=== PATIENT | male | born 1965 | race Caucasian/White ===

== ENCOUNTER 2019-11-30 20:42 | Emergency (ER) | payer SELFPAY ==
[2019-11-30 20:44] VITALS: BP 142/105; PULSE 97; RESP 20; TEMP 36.9; O2SAT 98; BMI 26.9
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
[2019-11-30] MEDS: 0.9% Normal Saline 1,000 ML 999 ML IV (21:32)
[2019-11-30] MEDS: Ondansetron 4 MG/2 ML Vial IV (21:34)
[2019-11-30] MEDS: Morphine 4 MG/ML Syringe IV (21:34)
[2019-11-30 21:41] LABS: Absolute Lymphocyte Count 1.87 X10^3/uL (0.83-4.51); Absolute Neutrophil Count 9.3 X10^3/uL (2.0-7.7); Basophil# 0.08 X10^3/uL; Basophil% 0.7 % (0-1); Eosinophil# 0.06 X10^3/uL; Eosinophils% 0.5 % (0-5); Hematocrit 47.5 % (40-54); Lymphocyte # 1.87 X10^3/ul (4.0); Lymphocyte % 15.6 % (19-41); Mean Corp Hgb Conc 33.7 g/dL (32-36); Mean Corpuscular Hgb 30.1 pg (27.0-32.0); Mean Corpuscular Volume 89.5 fL (80-94); Mean Platelet Vol. 9.5 fl (6.2-12.0); Monocyte% 5.8 % (0-10); NRBC Flagged by Analyzer 0 % (0-5); Neutrophil # 9.25 X10^3/uL (2.7-7.7); Neutrophil % 77.1 % (47-70); Platelet Count 235 K/mm3 (150-450); RBC Distribution Width CV 12.6 % (11.6-14.6); RBC Distribution Width SD 41.2 fl (35.1-43.9); Red Blood Count 5.31 M/mm3 (4.6-6.2)
[2019-11-30 21:50] LABS: Anion Gap 5 (5-15); BUN 11 mg/dL (7-18); BUN/Creat Ratio 12.2 RATIO (10-20); Chloride 104 mmol/L (98-107); EST Glomerular Filtration Rate 94 mL/min (>60); Est Glom Filt Rate - Afr Amer 113 mL/min (>60); Estimated Creatinine Clearance 141.24 ml/min; Glucose 122 mg/dL (74-106); Sodium Level 136 mmol/L (136-145)
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
[2019-11-30 22:42] VITALS: BP 115/88; PULSE 76; RESP 15; O2SAT 96
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
[2019-12-01 00:03] VITALS: BP 122/68; PULSE 85; RESP 18; O2SAT 97
== END 2019-12-01 00:04 | disposition home or self-care (01) ==
LOC: ED 21:26
PROVIDERS: Emergency Provider Emergency Medicine; PCP Family Medicine
DX: S16.1XXA Strain of muscle, fascia and tendon at neck level, initial encounter (principal); R07.89 Other chest pain; M25.512 Pain in left shoulder; M25.561 Pain in right knee; R10.30 Lower abdominal pain, unspecified; Z72.0 Tobacco use; V43.52XA Car driver injured in collision with other type car in traffic accident, initial encounter; Y93.I9 Activity, other involving external motion; Y92.410 Unspecified street and highway as the place of occurrence of the external cause; Y99.8 Other external cause status
CPT/HCPCS: 71260; 72125; 73030; 73564; 74177; 80048; 85025; 96361; 96374; 96375; 99284; Q9967; A4216; J2405

== ENCOUNTER 2019-12-05 11:23 | Emergency (ER) | payer MEDICAID, SELFPAY ==
[2019-12-05 11:24] VITALS: BP 119/82; PULSE 83; RESP 16; TEMP 36.6; O2SAT 97; BMI 26.6
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
[2019-12-05 13:12] VITALS: PULSE 88; RESP 14
== END 2019-12-05 13:17 | disposition home or self-care (01) ==
PROVIDERS: Emergency Provider Emergency Medicine; PCP Family Medicine
DX: S16.1XXD Strain of muscle, fascia and tendon at neck level, subsequent encounter (principal); F17.200 Nicotine dependence, unspecified, uncomplicated; V53.5XXD Driver of pick-up truck or van injured in collision with car, pick-up truck or van in traffic accident, subsequent encounter
CPT/HCPCS: 70450; 99282

== ENCOUNTER → 2020-04-20 | Outpatient (CLI) | payer MEDICAID, SELFPAY ==
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
== END | disposition home or self-care (01) ==
LOC: RAD 07:58
PROVIDERS: PCP Family Medicine; Referring Provider Chiropractor; Visit Provider Chiropractor
DX: M54.16 Radiculopathy, lumbar region (principal)
CPT/HCPCS: 72110

== ENCOUNTER 2020-05-04 18:43 | Emergency (ER) | payer MEDICAID, SELFPAY ==
[2020-05-04 18:45] VITALS: BP 123/102; PULSE 92; RESP 17; TEMP 36.3; O2SAT 97; BMI 26.4
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
[2020-05-04] MEDS: HYDROcodone Bitartrate/Apap 5/325 Tablet PO (20:11)
[2020-05-04] MEDS: Ketorolac 30 MG/ML Syringe IM (20:12)
[2020-05-04] MEDS: Gabapentin 600 MG Tablet 300 MG PO (20:20)
== END 2020-05-04 20:28 | disposition home or self-care (01) ==
LOC: ED 20:03
PROVIDERS: Emergency Provider Emergency Medicine
DX: M79.2 Neuralgia and neuritis, unspecified (principal); F17.200 Nicotine dependence, unspecified, uncomplicated
CPT/HCPCS: 96372; 99284

== ENCOUNTER 2020-07-14 09:03 | Outpatient (RCR) | payer MEDICAID, SELFPAY ==
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
--- NOTE | 2020-09-01 13:22 | HP.OT.NRP ---
HANNAH PARRA was seen in my office for initial evaluation on 07/14/20. The following Plan of Care was established for this patient: Initial Frequency: 3x /Week Initial Duration: 3 Months Anticipated Interventions: A/AAROM/PROM, Strengthening, Edema Control, Scar Care, Triggerpoint Release, Sensory Retraining, Modalities, Orthoses, Fine Motor Coord/Александр, ADL Training This patient was last seen in our office 07/14/20. Pertinent comments regarding their Occupational therapy will appear below: pt seen for OT eval only- pt did not return for further apts. Due to time lapse in services pt is d/c from OT at this time. At this point I will be discontinuing this patient from occupational therapy. I would be happy to see this patient again in the future if found appropriate by the physician. Thank you! Makenna Mcgee, OTR/L, CHT
== END 2020-07-14 19:00 | disposition home or self-care (01) ==
LOC: OT 09:03
PROVIDERS: Referring Provider Orthopaedic Surgery; Visit Provider Orthopaedic Surgery
DX: M24.541 Contracture, right hand (principal)
CPT/HCPCS: 97167

== ENCOUNTER 2020-09-04 13:12 | Emergency (ER) | payer MEDICAID, SELFPAY ==
[2020-09-04 13:13] VITALS: BP 121/87; PULSE 85; RESP 18; TEMP 35.8; O2SAT 98; BMI 29.4
--- NOTE | 2020-09-04 13:38 | RAD_ITS ---
STUDY: X-RAY - RIGHT SHOULDER REASON FOR EXAM: Male, 54 years old. FALL X2 DAYS AGO- PT STATES FELT LIKE IT CAME OUT AND THEN POPPED BACK INTO PLACE- CONTINUED PAIN AND LIMITED ROM -- HX OF SAME PER PT TECHNIQUE: 4 view(s) of the shoulder. COMPARISON: None. FINDINGS: Normal glenohumeral articulation. There is hypertrophic osteoarthrosis of the acromioclavicular joint with inferior osseous spur formation. Normal acromion. Normal humeral head and visualized proximal humerus. The soft tissue structures are unremarkable. Normal visualized pulmonary apex. 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 Electronically Signed: Nathaniel Feng, at 14:03 EST , Service support ,
--- NOTE | 2020-09-04 14:19 | ED.DEP ---
ED Disposition - Plan for ED Patient: Instructions: ED Shoulder Sprain Prescriptions: Oxycodone HCl/Acetaminophen [Percocet 5/325] 1 tab PO Q6H PRN PRN 3 Days #12 tab PRN Reason: Pain Prescription Printed Referrals: Prieto Deluca MD [STAFF PHYSICIAN] -
--- NOTE | 2020-09-04 14:26 | ED.DCSUM_ITS ---
- ER Visit Summary Date of Service: 09/04/20 Chief Complaint: Right shoulder pain History of Present Illness: The patient is a 54 M presenting with right shoulder pain. Patient states he fell 2 days ago. He states he slipped and fell landing on his right side. He did not hit his head or lose consciousness. He felt like his shoulder popped out of place and popped back into place at the time. He states he has done this in the past. Denies other injuries. Physical Examination: Vitals are stable. Patient is afebrile. Alert no acute distress. HEENT exam is unremarkable. Neck is nontender Lungs are clear and equal bilaterally. Heart is regular rate and rhythm. Abdomen is soft nontender nondistended. Extremities diffuse tenderness right shoulder with painful range of motion. Neurovascularly intact distally. No erythema or warmth. Skin is warm and dry. No focal neurologic deficit. Remainder of exam is unremarkable. 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 Patient given morphine, Zofran IM. He was given a sling. Advised follow-up with orthopedics. Advised return to ED if worsening complaints. Disposition: Discharge home Impression: Right shoulder sprain This note was generated with [employer] dictation software. It may contain incorrect words, spelling, and punctuation that were not noted in review of the chart prior to signing ED Disposition - Plan for ED Patient: Instructions: ED Shoulder Sprain Prescriptions: Oxycodone HCl/Acetaminophen [Percocet 5/325] 1 tab PO Q6H PRN PRN 3 Days #12 tab PRN Reason: Pain Prescription Printed Referrals: Prieto Deluca MD [STAFF PHYSICIAN] -
[2020-09-04] MEDS: oxyCODONE 5 MG Tablet PO (14:40)
[2020-09-04 14:41] VITALS: RESP 18
== END 2020-09-04 14:46 | disposition home or self-care (01) ==
LOC: ED 14:46
PROVIDERS: Emergency Provider Emergency Medicine
DX: S43.401A Unspecified sprain of right shoulder joint, initial encounter (principal); Z72.0 Tobacco use; W01.0XXA Fall on same level from slipping, tripping and stumbling without subsequent striking against object, initial encounter; Y93.89 Activity, other specified; Y92.89 Other specified places as the place of occurrence of the external cause; Y99.8 Other external cause status
CPT/HCPCS: 73030; 99283; J2405

== ENCOUNTER 2023-12-25 11:32 | Emergency (ER) | payer MEDICAID, SELFPAY ==
[2023-12-25 11:32] VITALS: BP 131/89; PULSE 97; RESP 16; TEMP 36.6; O2SAT 100; BMI 29.2
--- NOTE | 2023-12-25 12:07 | ED.VIS.GI ---
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 He did think that he may have lifted something incorrectly and had a twinge of pain in his left low back, but it worsened today. He states it took him about an hour to get out of bed. When he had a bowel movement, he felt a tearing sensation in his left flank. It radiates from his low back towards the front. He had a normal bowel movement today. He denies any fevers or chills, no saddle anesthesia, no loss of bowel or bladder. He does state that when he pressed on his low back it does not hurt and it feels like there is pain that is sharp and stabbing more on the inside. No exacerbating or alleviating factors. He does relate history that remotely he had a kidney stone. PFSH PFS Medical History no medical history Home Medications cyclobenzaprine 10 mg tablet 10 mg PO TID PRN Muscle Spasm #20 TABLETS 12/25/23 [Rx Last Taken Unknown] naproxen 500 mg tablet (Naprosyn) 500 mg PO BID PRN pain #20 tabs 12/25/23 [Rx Last Taken Unknown] Allergy/AdvReac Type Severity Reaction Status Date / Time No Known Allergies Allergy Verified 12/25/23 11:33 Social History Smoking Status: Current every day smoker tobacco type: cigarettes ROS ROS ED ROS Narrative Constitutional: No fever, no chills. HEENT: No sore throat. No neck pain. No loss of vision. No rhinorrhea. Cardiovascular: No chest pain. No palpitations. No pedal edema. Respiratory: No cough, no shortness of breath. Abdominal: Left lower quadrant abdominal pain. No nausea. No vomiting. Genitourinary: No dysuria. No hematuria. Positive left low back to left flank pain. Musculoskeletal: No myalgias. No arthralgias. Neurologic: No headaches. No dizziness. No lightheadedness. Skin: No rash. No change in color. Psychiatric: No depression. No anxiety. EXAM Physical Exam Narrative Exam Narrative: Afebrile. Vital signs noted. HEENT: Normocephalic. Atraumatic. PERRL, EOMI. Neck soft and supple. No point tenderness or step off. Cardiovascular: Regular rate and rhythm. No murmurs, rubs, or gallops appreciated. Respiratory: No tachypnea. Lungs clear to auscultation bilaterally. Gastrointestinal: Abdomen soft, nontender, with normoactive bowel sounds. No rebound or guarding. Neurological: Awake. Alert. Nonfocal, nonlateralizing. Skin: No rash. Normal color. No pallor. Musculoskeletal: No pedal edema. Full range of motion extremities. Const Vital Signs: 12/25/23 11:32 12/25/23 13:32 Temperature 98 F Temperature Source Temporal Pulse Rate 97 89 Respiratory Rate 16 16 Blood Pressure 131/89 H 117/78 Blood Pressure Mean 103 91 Pulse Ox 100 97 Oxygen Delivery Method Room Air Room Air MDM MDM MDM Narrative Medical decision making narrative: In the differential diagnosis is ureterolithiasis versus diverticulitis versus bowel obstruction. History and physical does not certainly support a bowel obstruction. He may be having more of a lumbar radiculopathy and musculoskeletal low back pain as well, he was administered Toradol and a bolus of IV fluids for analgesia. Comprehensive workup was pursued. I do feel that CT flank is indicated to look for ureteral stone and it could also diagnose diverticulitis as well. I reviewed his laboratory work and he has normal white count of 7.1, hemoglobin normal at 16.2, hematocrit 48.0, platelet count normal at 248. Electrolyte panel shows sodium slightly low at 135 which I think is nonspecific, normal potassium of 4.1, BUN normal at 9, creatinine 0.94. AST is normal at 17 with ALT 25 and alk phos normal at 91. Urinalysis was obtained and reviewed and there is no evidence of infection or blood. I do not feel that antibiotics are indicated have lower suspicion for ureterolithiasis at this time. I reviewed the radiology report of the CT of the abdomen and pelvis without contrast which does not show any evidence of ureteral stone, no acute process. The appendix is visualized and is noninflamed. Additionally, his flank pain is on the left side. He does have an aortic aneurysm and dilation of the right proximal iliac. Smoking cessation was discussed with the patient. At this point in time, I am unsure as to the cause of his left flank pain but think it may be more musculoskeletal back pain. After he had received Toradol, upon repeat examination at approximately 1430, he feels improved. I do not feel he requires observation or admission at this time. He is able to transfer from the bed. He was written prescriptions for Flexeril and naproxen and was referred to a primary care provider. Return instructions to the emergency department were reviewed. Disposition is discharged home in stable condition. History & Record Review Discussion w/independent historian: Patient Additional record(s) reviewed:: Prior ED visit Lab Data Attestation: I reviewed the patient's lab results. Labs: Laboratory Results - last 24 hr 12/25/23 12/25/23 12:05 12:30 WBC 7.1 RBC 5.40 Hgb 16.2 Hct 48.0 MCV 88.9 MCH 30.0 MCHC 33.8 RDW Std Deviation 42.1 RDW Coeff of Cherri 12.9 Plt Count 248 MPV 9.7 Immature Gran % (Auto) 0.100 Neut % (Auto) 65.7 Lymph % (Auto) 23.7 Russell % (Auto) 7.4 Eos % (Auto) 1.8 Baso % (Auto) 1.3 H Absolute Neuts (auto) 4.7 Absolute Lymphs (auto) 1.69 Nucleated RBC % 0 Sodium 135 L Potassium 4.1 Chloride 104 Carbon Dioxide 27.0 Anion Gap 4 L BUN 9 Creatinine 0.94 Estim Creat Clear Calc 140.98 Est GFR (MDRD) Af Amer 107 Est GFR (MDRD) Non-Af 88 BUN/Creatinine Ratio 9.6 L Glucose 145 H Calcium 8.9 Total Bilirubin 0.40 AST 17 ALT 25 Alkaline Phosphatase 91 Total Protein 7.2 Albumin 3.8 Globulin 3.4 Albumin/Globulin Ratio 1.1 Urine Color Yellow Urine Clarity Clear Urine pH 7.0 Ur Specific [place] 1.010 Urine Protein 30 H Urine Glucose (UA) Normal Urine Ketones 5 H Urine Occult Blood 10 H Urine Nitrite Negative Urine Bilirubin Negative Urine Urobilinogen 4 H Ur Leukocyte Esterase 100 H Urine RBC 0 SEEN Urine WBC 0-5 SEEN Ur Squamous Epith Cells 0-5 SEEN Ur Renal Epithelial Cell 0-5 SEEN Urine Bacteria 0 SEEN Urine Mucus 0 SEEN Radiography Diagnostic Testing: Clinical Impression(s) from Imaging Studies Abdomen/Pelvis CT 12/25/23 13:02 IMPRESSION: Atrophic changes of the abdominal aorta with minimal aneurysmal dilatation of the distal abdominal aorta with a transverse dimension of 2.9 cm. Dilatation of the proximal portion of the right common iliac artery. Mild prostatic enlargement. Interval increase in size of the previously seen cyst in the dome of the right lobe of the liver. Correlation with ultrasound is recommended. Electronically Signed: Nathaniel Feng MD at 13:41 EDT , Discharge Plan Triage Chief Complaint: Abd Pain ED Provider: Myles Rivera Dx/Rx/DC Orders Clinical Impression: Low back pain, Left flank pain Instructions: ED Back Pain (Acute or Chronic), ED Flank Pain, Uncertain Cause Prescriptions: New cyclobenzaprine 10 mg tablet 10 mg PO TID PRN (Reason: Muscle Spasm) Qty: 20 0RF naproxen [Naprosyn] 500 mg tablet 500 mg PO BID PRN (Reason: pain) Qty: 20 0RF Primary Care Provider: Care Physician,No Primary Referrals: Tommie Burr MD [Med Staff - Active Staff] - 1 Week if not improving Care Physician,No Primary [Primary Care Provider] - Disposition Disposition: Home, Self Care
[2023-12-25 12:25] LABS: Absolute Lymphocyte Count 1.69 X10^3/uL (0.83-4.51); Absolute Neutrophil Count 4.7 X10^3/uL (2.0-7.7); Basophil# 0.09 X10^3/uL; Basophil% 1.3 % (0-1); Eosinophil# 0.13 X10^3/uL; Eosinophils% 1.8 % (0-5); Hemoglobin 16.2 g/dL (13.0-16.5); Lymphocyte # 1.69 X10^3/ul (0.83-4.51); Lymphocyte % 23.7 % (19-41); Mean Corp Hgb Conc 33.8 g/dL (32-36); Mean Corpuscular Volume 88.9 fL (80-94); Mean Platelet Vol. 9.7 fl (6.2-12.0); Monocyte# 0.53 X10^3/uL; Monocyte% 7.4 % (0-10); NRBC Flagged by Analyzer 0 % (0-5); Neutrophil # 4.68 X10^3/uL (2.7-7.7); Neutrophil % 65.7 % (47-70); Platelet Count 248 K/mm3 (150-450); RBC Distribution Width CV 12.9 % (11.6-14.6); RBC Distribution Width SD 42.1 fl (35.1-43.9); White Blood Count 7.1 K/mm3 (4.4-11.0)
[2023-12-25] MEDS: 0.9% Normal Saline (1000mL) 1,000 ML 1000 ML IV (12:35)
[2023-12-25] MEDS: Ketorolac 30 MG/ML Syringe IV (12:36)
[2023-12-25 12:38] LABS: ALB/GLOB Ratio 1.1 RATIO (0.9-2.4); AST(SGOT) 17 U/L (15-37); Alanine Aminotransfer ALT/SGPT 25 U/L (16-61); Albumin, Serum 3.8 g/dL (3.2-5.0); Alkaline Phosphatase 91 U/L (45-117); Anion Gap 4 (5-15); BUN 9 mg/dL (7-18); BUN/Creat Ratio 9.6 RATIO (10-20); Calcium,Total 8.9 mg/dL (8.5-10.1); Chloride 104 mmol/L (98-107); Creatinine, Serum 0.94 mg/dL (0.70-1.30); EST Glomerular Filtration Rate 88 mL/min (>60); Est Glom Filt Rate - Afr Amer 107 mL/min (>60); Estimated Creatinine Clearance 140.98 ml/min; Globulin 3.4 g/dL (2.2-4.2); Glucose 145 mg/dL (74-106); Potassium 4.1 mmol/L (3.5-5.1); Protein, Total 7.2 g/dL (6.4-8.2); Sodium Level 135 mmol/L (136-145)
[2023-12-25 12:44] LABS: Bacteria 0 SEEN /hpf (None Seen); Mucous, Urine 0 SEEN /hpf (<or=2+); Red Blood Cells-Urine 0 SEEN /hpf (0-5)
[2023-12-25 12:47] LABS: Color, Urine Yellow (Yellow); Glucose, Dipstick Normal (Normal); Ketone-Dipstick 5 mg/dl (Negative); Leukocyte Esterase-Dipstick 100 /ul (Negative); Nitrite-Dipstick Negative (Negative); Occult Blood-Urine 10 /ul (Negative); Protein-Dipstick 30 mg/dl (Negative); Urine Bilirubin Dipstick Negative (Negative); Urine Clarity Clear (Clear); Urine Urobilinogen 4 mg/dl (Normal)
[2023-12-25 12:57] LABS: Renal Epithelial Cells 0-5 SEEN /hpf (0-5); Squamous Epithelial Cells - UA 0-5 SEEN /hpf (0-5); White Blood Cells 0-5 SEEN /hpf (0-5)
--- NOTE | 2023-12-25 13:02 | CT_ITS ---
STUDY: CT ABDOMEN AND PELVIS WITHOUT CONTRAST REASON FOR EXAM: Male, 58 years old. Left-sided abdominal pain. RADIATION DOSAGE (If Supplied By Facility): CTDIvol = ( 17.82 ) mGy, DLP = ( 979.22 ) mGycm TECHNIQUE: Transaxial images were obtained from the dome of the diaphragm to the symphysis pubis without oral contrast, and without intravenous contrast. Sagittal and coronal images were reconstructed. Individualized dose optimization techniques were used for this CT. COMPARISON: Comparison is made with prior study dated November 30, 2019. FINDINGS: The visualized lung bases are unremarkable. The visualized portions of the heart are within normal limits. The previously seen cyst in the dome of the right lobe of liver as increased in size. It presently measures 3 cm x 2.8 cm. Minimal calcific rim is seen along its posterior aspect. Stable small cyst seen in the left lobe of the liver. Normal gallbladder and extrahepatic biliary system. Normal spleen. Normal pancreas. Normal bilateral adrenal glands. Normal right kidney. Normal left kidney. Normal visualized stomach. Normal small intestine. Normal colon. The appendix is visualized and appears normal. There is diffuse atherosclerotic calcification of the abdominal aorta. Mild aneurysmal dilatation of the distal abdominal aorta with a transverse dimension of 2.9 cm. Dilatation of the proximal portion of the right common iliac artery measuring 2.5 cm in transverse dimension. Normal inferior vena cava. Normal retroperitoneum. Normal urinary bladder. The prostate measures 4.9 cm x 4.3 cm. There is a small umbilical hernia containing fat. There are degenerative changes of the visualized lumbar spine. CT/Abdomen/Pelvis without Cont IMPRESSION: Atrophic changes of the abdominal aorta with minimal aneurysmal dilatation of the distal abdominal aorta with a transverse dimension of 2.9 cm. Dilatation of the proximal portion of the right common iliac artery. Mild prostatic enlargement. Interval increase in size of the previously seen cyst in the dome of the right lobe of the liver. Correlation with ultrasound is recommended. Electronically Signed: Nathaniel Feng MD at 13:41 EDT ,
[2023-12-25 13:32] VITALS: BP 117/78; PULSE 89; RESP 16; O2SAT 97
[2023-12-25 14:44] VITALS: BP 121/78; PULSE 84; RESP 16; TEMP 36.3; O2SAT 98
== END 2023-12-25 14:46 | disposition home or self-care (01) ==
PROVIDERS: Emergency Provider Emergency Medicine; Visit Provider Emergency Medicine
DX: M54.50 Low back pain, unspecified (principal); R10.9 Unspecified abdominal pain; I71.40 Abdominal aortic aneurysm, without rupture, unspecified; F17.210 Nicotine dependence, cigarettes, uncomplicated
CPT/HCPCS: 74176; 80053; 81001; 85025; 96361; 96374; 99283; J7030; A4216

== ENCOUNTER 2024-02-06 09:38 | Emergency (ER) | payer MEDICAID, SELFPAY ==
[2024-02-06 09:38] VITALS: BP 170/94; PULSE 96; RESP 18; TEMP 36.6; O2SAT 100
--- NOTE | 2024-02-06 10:13 | EX.ED.VIS.EY ---
HPI History of Present Illness Chief Complaint: Eye Problem Detail of Chief Complaint: Left eye swelling and discomfort. Informant: patient Onset/Context/Timing Location: Left Eye Onset: Today Context: Gradual Onset Timing: Continuous Current Severity: Mild Maximum Severity: Mild Associated Symptoms Associated Symptoms - Eyes: Burning and Photophobia History of injury: No Visual correction: Glasses (Reading glasses. No contacts.) Narrative Narrative: 58-year-old male uses reading glasses but does not wear contacts never had eye surgery. 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 Said he wears a large shield so he does not think there is any way got a foreign body in his left eye. Today he awoke with left eye pain and swelling with his eye closed. Does not believe there is any chemicals in the eye. Said this is never happened before. Denies any direct trauma. Prior similar symptoms: No Recent Illness/Hospitalization: No PFSH PFSH Medical History no medical history Home Medications cephalexin 500 mg capsule 500 mg PO Q6H 10 days #40 caps 02/06/24 [Rx Last Taken Unknown] Allergy/AdvReac Type Severity Reaction Status Date / Time No Known Allergies Allergy Verified 02/06/24 09:38 Social History Smoking Status: Current every day smoker tobacco type: cigarettes ROS ROS ED ROS Narrative Denies recent illness Review of Systems ROS Unobtainable: Denies due to encephalopathy Constitutional Constitutional ED: Denies chills or fever(s) Eyes Eyes: Denies blurry vision ENT ENT ED: Denies ear pain or rhinorrhea Cardiovascular Cardiovascular: Denies chest pain Respiratory/Chest Respiratory/Chest: Denies cough or dyspnea Gastrointestinal Gastrointestinal: Denies abdominal pain, diarrhea, nausea or vomiting Genitourinary Genitourinary ED: Denies dysuria or hematuria Musculoskeletal Musculoskeletal: Denies arthralgias or back pain Integumentary Denies abscess or Abrasions Neurologic Neurologic: Denies headache(s) Psychiatric Psychiatric: Denies anxiety Endocrine Endocrinology: Denies polydipsia Hematologic/Lymphatic Hematologic/Lymphatic: Denies easy bleeding, easy bruising or lymphadenopathy Allergic/Immunologic Allergic/Immunologic ED: Denies mouth swelling, tongue swelling or urticaria EXAM Physical Exam Narrative Exam Narrative: 58-year-old male vital signs stable afebrile. HEENT exam pupils round react to light his motions are intact. His left eye is closed but unable to open it. There is no discharge. I will do a more formal eye exam once I get his eye locally anesthetized with tetracaine. No facial droop. Lungs clear to auscultation bilaterally. Heart regular rhythm. No murmur. Abdomen soft nontender. Moving all 4 extremities. He has weakness which is chronic and Laki use of the right hand from a prior infection and surgery. Neurologically is awake alert. Answering questions following commands. Repeat exam I placed tetracaine in his left eye and headache slit-lamp exam with fluorescein. I saw no foreign body. No corneal abrasion. Upper and lower lids were everted were okay. On his right upper medial eyebrow appears to be an early skin subcu abscess. It is not fluctuant it is hard. I did not think I would get anything out of I drained it and patient did not want me to attempt to drain it if we integrating anything out of it. He will be started on Keflex 4 times a day. Return if it comes to ahead or gets larger to be drained. Warm compresses. Follow-up with the eye doctor if his eyes not improving. He did have visual acuity done. It was 2070 in the affected left eye 20/25 in the right eye. And he said he could not do both eyes. Const Vital Signs: 02/06/24 09:38 Temperature 98 F Temperature Source Temporal Pulse Rate 96 Respiratory Rate 18 Blood Pressure 170/94 H Blood Pressure Mean 119 Pulse Ox 100 Oxygen Delivery Method Room Air Positive well nourished and well developed; Negative for obese, cachectic, contractures or unkempt General Appearance ED: well developed and NAD; Negative for unkempt, cachectic or contractures Nutritional Appearance: Negative for cachectic or obese HEENT Denies other atraumatic; Negative for trauma, tenderness or other Eyes Eyes Narrative: Pupils are reactive light. Left eye closed. They are open. He is photophobic. There is no orbital or periorbital cellulitis. No preauricular lymphadenopathy. No proptosis. Neck no lymphadenopathy, supple and no JVD General: Negative for tenderness Resp normal respiratory effort, no retractions, no use of accessory muscles and clear to auscultation bilaterally Cardio regular rate, regular rhythm, S1 normal heart sound, S2 normal heart sound and no murmurs GI non-tender, non-distended and no masses Inspection: Negative for other Auscultation: normoactive bowel sounds Palpation: soft Back/Spine no CVA tenderness General Back: Negative for CVA tenderness Extremity Negative for normal to inspection Extremity Narrative: Chronic weakness right hand due to prior infection surgery. Neuro oriented x3 Sensorium / Orientation: alert, oriented to person, oriented to place and oriented to time Motor Exam: strength 5/5 throughout Psych Appearance: Negative for unkempt Attitude: No agitated Mood & Affect: Negative for depressed, anxious or tearful Skin no wounds Lesions: no lesions Rashes: no rashes Trauma: Negative for abrasion Image ED - Eye Diagram: 1. Abscess medial aspect of the left upper eyebrow. The left eye exam itself there is no corneal abrasion or foreign body. No signs of infection. MDM MDM MDM Narrative Medical decision making narrative: Patient has discomfort in his left eye with swelling. Infection versus foreign body. Slit-lamp examination be performed after he received tetracaine to his left eye and fluorescein. Visual acuity be obtained. Along patient also has a abscess on his left medial forehead just above his eyebrow. It is firm nothing to drain at this time. There is no signs of shingles. Patient be discharged home. Keflex 4 times a day. First dose given here. Nothing to I&D at this time. Outpatient follow-up with ophthalmology if not improving. Return if the abscess gets bigger to be drained. History & Record Review Discussion w/independent historian: Patient Discharge Plan Triage Chief Complaint: Eye Problem ED Provider: Christopher Conti Dx/Rx/DC Orders Clinical Impression: Abscess Instructions: ED Abscess Antibiotic Treatment Only Prescriptions: New cephalexin 500 mg capsule 500 mg PO Q6H 10 Days Qty: 40 0RF Primary Care Provider: Care Physician,No Primary Referrals: Deedee Ray MD [Med Staff - Active Staff] - 3-5 Days if not improving Care Physician,No Primary [Primary Care Provider] - Activity Restrictions/Additional Instructions: Your eye exam does not show foreign body, infection or scratch to your eye. There appears to be an abscess on your left forehead that we will treat with antibiotics.. There is nothing to drain at this time. If the abscess gets larger on her left forehead then we will need to drain it. Warm compresses. The antibiotic Keflex 1 pill 4 times a day till gone. The should progressively improve if it is not follow-up with the eye doctor. Disposition Disposition: Home, Self Care
--- NOTE | 2024-02-06 11:18 | NURSING ---
Pt states its too painful to look through both eyes
[2024-02-06] MEDS: Cephalexin 250 MG Capsule 500 MG PO (12:48)
[2024-02-06] MEDS: Fluorescein 1 MG STRIP 1 STRIP LEFT EYE (12:49)
[2024-02-06] MEDS: Tetracaine 0.5% Ophthalmic Bottle 5 DRP LEFT EYE (12:49)
[2024-02-06 12:54] VITALS: BP 134/78; PULSE 78; RESP 16; TEMP 36.6; O2SAT 99
== END 2024-02-06 12:57 | disposition home or self-care (01) ==
PROVIDERS: Emergency Provider Emergency Medicine; Visit Provider Emergency Medicine
DX: L02.01 Cutaneous abscess of face (principal); F17.210 Nicotine dependence, cigarettes, uncomplicated; H53.149 Visual discomfort, unspecified
CPT/HCPCS: 99282

== ENCOUNTER 2024-06-01 08:34 | Emergency (ER) | payer MEDICAID, SELFPAY ==
[2024-06-01 08:35] VITALS: BP 138/97; PULSE 86; RESP 16; TEMP 36.4; O2SAT 98; BMI 27.3
--- NOTE | 2024-06-01 09:10 | EDS_ITS ---
HPI History of Present Illness Chief Complaint: Eye Problem Informant: patient Onset/Context/Timing Location: Left Eye Onset: Yesterday Context: Sudden Onset Timing: Continuous Worsened by: Opening his eye Relieved by: Nothing Associated Symptoms Associated Symptoms - Eyes: Burning, Crusting, Drainage, Eyelid swelling, Foreign body sensation, Pain and Redness History of injury: Yes and Foreign body Visual correction: Glasses (Reading glasses) Narrative Narrative: Patient presents with foreign body sensation to his left eye that occurred yesterday. Patient states he was working on a car and was wearing a full face shield yesterday. Patient states that when he was done, he started to get sweaty and he took his face shield off. Patient states that his friend was blowing some of the dust and dirt from the car. Patient states that something got into his eye at that time. Patient admits to some burning and redness this morning. Patient admits to some swelling and increased tearing from his left eye. Patient states she has difficulty opening his eye due to the pain. PFSH PFSH no medical history Home Medications ?Medication ?Instructions ?Recorded ?Last Taken ?Type cephalexin 500 mg capsule 500 mg PO Q6 #40 CAPSULES 02/06/24 Unknown Rx cephalexin 500 mg capsule 500 mg PO Q6H 10 days #40 caps 02/06/24 Unknown Rx Allergy/AdvReac Type Severity Reaction Status Date / Time No Known Allergies Allergy Verified 06/01/24 08:35 Surgical History (Updated 06/01/24 @ 09:[address] Rashad Merrill DO) Hx of hand surgery Social History Smoking Status: Current every day smoker tobacco type: cigarettes ROS ROS ED Constitutional Constitutional ED: Denies chills or fever(s) ENT ENT ED: Denies rhinorrhea or sore throat Cardiovascular Cardiovascular: Denies chest pain or palpitations Respiratory/Chest Respiratory/Chest: Denies cough or dyspnea Gastrointestinal Gastrointestinal: Denies nausea or vomiting Genitourinary Genitourinary ED: Denies dysuria or hematuria Musculoskeletal Musculoskeletal: Denies back pain or neck pain Integumentary Denies abscess or rash Neurologic Neurologic: Denies headache(s) or weakness Allergic/Immunologic Allergic/Immunologic ED: Denies mouth swelling or urticaria EXAM Physical Exam Const Vital Signs: 06/01/24 08:35 Temperature 97.6 F L Temperature Source Temporal Pulse Rate 86 Respiratory Rate 16 Blood Pressure 138/97 H Blood Pressure Mean 110 Pulse Ox 98 Oxygen Delivery Method Room Air Positive well nourished and well developed General Appearance ED: well developed and NAD Eyes Eyes Narrative: Pupils are equal, round, and reactive to light bilaterally. Extraocular muscles are intact. Conjunctiva was injected on the left. There is a foreign body noted over the inferior medial aspect of the left cornea at approximately the 8 o'clock position. There is a rust ring noted. Anterior chamber was clear. There is no hyphema noted. Patient could not tolerate funduscopic examination. Neck supple and no JVD Neuro oriented x3, CN's II-XII intact bilaterally, moves all extremities and no sensory deficits noted Sensorium / Orientation: alert Motor Exam: strength 5/5 throughout MDM MDM MDM Narrative Medical decision making narrative: The foreign body was removed under slit-lamp examination using ophthalmic filippo. Patient was unable to tolerate further removal of the rust ring. Patient was given erythromycin ophthalmic ointment. Patient was given a referral for ophthalmology for follow-up care in 2 days. Patient was instructed to return if worse in any way. Patient understood and was agreeable with plan. All questions were answered. Discharge Plan Triage Chief Complaint: Eye Problem ED Provider: Rashad Merrill Dx/Rx/DC Orders Clinical Impression: Acute foreign body of left cornea, Corneal abrasion, left, Tobacco use disorder Instructions: ED Corneal Abrasion, ED RUST RING Prescriptions: No Action cephalexin 500 mg capsule 500 mg PO Q6H 10 Days Qty: 40 0RF cephalexin 500 mg capsule 500 mg PO Q6 Qty: 40 0RF Primary Care Provider: Care Physician,No Primary Referrals: Robert Romero MD [Med Staff - Active Staff] - 2 Days Care Physician,No Primary [Primary Care Provider] - Print Language: Polish Disposition Disposition: Home, Self Care
[2024-06-01] MEDS: Erythromycin Ophthalmic (NSY) 1 GM OPTH.TUBE 1 APPLIC LEFT EYE (09:48)
[2024-06-01] MEDS: Fluorescein 1 MG STRIP 1 STRIP OPHTHALMIC (09:48)
[2024-06-01] MEDS: Tetracaine 0.5% Ophthalmic Bottle 1 DRP OPHTHALMIC (09:49)
== END 2024-06-01 09:53 | disposition home or self-care (01) ==
LOC: ED 09:41
PROVIDERS: Emergency Provider Emergency Medicine; PCP Family Medicine; Visit Provider Emergency Medicine
DX: T15.02XA Foreign body in cornea, left eye, initial encounter (principal); F17.210 Nicotine dependence, cigarettes, uncomplicated; X58.XXXA Exposure to other specified factors, initial encounter
CPT/HCPCS: 99283

== ENCOUNTER 2025-09-18 20:12 | Emergency (ER) | payer MEDICAID, SELFPAY ==
[2025-09-18 20:13] VITALS: BP 155/88; PULSE 100; RESP 16; TEMP 36.6; O2SAT 99; BMI 26.9
--- OUTSIDE RECORDS SUMMARY | 2025-09-18 21:58 | XMS RPT_ITS | CCD ---
Author Organization [facility] Inform ion Partnership [facility] Care Team Providers Care Assistant Portfolio Manager Name Role Phone Unavailable Primary Care Provider UnavailKobi Granados Primary Care Provider PROVIDER, UNKNOWN Referring Unavailable Beth, PCP Primary Care Unavailable Omari Porras Attending Unavailable [facility] Primary Care Provider Unav SUSY Park Referring Unavailable [facility] Primary Care Unavailable SUSY LEIVA Attending Unavailable [facility] Primary Care Unavailable Rashad Merrill Attending Unavailable Tommie Burr Primary Care Unavailable Care Physician, No Primary Primary Care Unava Christopher Payne Attending Unavailable Care Physician, No Primary Primary Care Unava ilMyles Goyal Attending Unavailable Medications Current Medications Medication Drug Class(es) Dates Sig (Normalized) Sig (Original) acetaminophen 325 mg oral tablet (1 source) Start: 05-11-2020 take 650 mg by mouth every six hours, then take 4000 mg by mouth every twenty-four hours 650 mg, Oral, EVERY 6 HOURS, First dose on Mon05/11/20 at 0115 Maximum dose of acetaminophen is 4000 mg from all sources in 24 hours. calcium chloride 0.0014 meq/ml / potassium chloride 0.004 meq/ml / sodium chloride 0.103 meq/ml / sodium lactate 0.028 meq/ml injectable solution (1 source) Start: 05-11-2020 lactated ringers infusion castor oil 0.788 mg/mg / chinese balsam 0.087 mg/mg topical ointment (1 source) Standardized Chemical Allergen Start: 05-13-2020 Venelex ointment ceFAZolin 2000 mg injection (2 sources) Cephalosporin Antibacterial Start: 05-14-2020 ceFAZolin (ANCEF) 2 g in dextrose 4 % 100 mL IVPB (premix) inject 2 g intraveno us route every eight hours ceFAZolin (ANCEF) 1 g injection Infuse 2 g intravenously every 8 hours 0 Active cephalexin 500 mg oral capsule (6 sources) Cephalosporin Antibacterial Start: 02-06-2024 take 500 mg by mouth every six hours Cephalexin Active 500 MG PO EVERY 6 HOURS 40 February 06, 2024 12:00am Start: 04-05-2023 End: 04-15-2023 cephalexin (Keflex) 500 MG c apsule Take 1 capsule (500 mg) by mouth in the morning and 1 capsule (500 mg) at noon and 1 capsule (500 mg) in the evening and 1 capsule (500 mg) before bedtime. Do all this for 10 days. 40 capsule 0 04/05/2023 04/15/2023 Active clotrimazole 10 mg/ml topical cream (1 source) Azole Antifungal Start: 12-08-2020 End: 12-15-2020 clotrimazole (LOTRIMIN AF) 1 % cream Apply topically 2 times daily. 1 Tube 1 12/08/2020 12/15/2020 Active gabapentin (2 sources) Anti-epileptic Agent GABAPENTIN PO Take by mouth 0 Active glucagon (rdna) 1 mg injection (1 source) Antihypoglycemic Agent Start: 05-11-2020 glucago n (rDNA) injection 1 mg 150 ml glucose 50 mg/ml injection (3 sources) Start: 05-11-2020 dextrose 5 % s olution Start: 05-11-2020 glucose (GLUTO SE) 40 % oral gel 15 g Start: 05-11-2020 dextrose 50 % IV solution 3 ml heparin sodium, porcine 100 unt/ml prefilled syringe (3 sources) Unfractionated Heparin, Anti-coagulant Start: 05-13-2020 heparin flush 100 UNIT/ML injection 250 Units HYDROmorphone (DILAUDID) injection 0.5 mg (1 source) Start: 05-11-2020 HYDROmorphone (DILAUDID) injection 0.5 mg insulin lispro 100 unt/ml injectable solution (3 sources) Insulin Analog Start: 05-11-2020 End: 05-11-2020 insulin lispro (HUMALOG) injection vial 0-6 Units lidocaine 0.04 mg/mg medicated patch (1 source) Antiarrhythmic, Amide Local Anesthetic Start: 05-15-2020 lidocaine 4 % external patch 1 patch meloxicam 15 mg oral tablet (3 sources) Nonsteroidal Anti-inflammatory Drug Start: 06-12-2020 take 1 tablet by mouth once daily meloxicam (MOBIC) 15 MG tablet Take 1 tablet by mouth daily 30 tablet 0 06/12/2020 Active MELOXICAM PO Tremaine e by mouth 0 Active metFORMIN hydrochloride 500 mg oral tablet (3 sources) Biguanide Start: 05-13-2020 take 1 tablet by mouth twice daily at mealtime metFORMIN (GLUCOPHAGE) 500 MG tablet Take 1 tablet by mouth 2 times daily (with meals) 60 tablet 0 06/12/2020 Active omeprazole 20 mg delayed release oral capsule (1 source) Proton Pump Inhibitor Start: 06-12-2020 take 1 capsule by mouth once daily omeprazole (PRILOSEC) 20 MG delayed release capsule Take 1 capsule by mouth Daily 30 capsule 0 06/12/2020 Active oxyCODONE (1 source) Opioid Agonist Start: 05-11-2020 oxyCODONE (ROXICODONE) immediate release tablet 5 mg polyethylene glycol 3350 43237 mg powder for oral solution (1 source) Osmotic Laxative Start: 05-11-2020 17 g, Oral, DAILY PRN, Constipation, Starting Mon05/11/20 at 0052 First line therapy for constipation Promethazine (1 source) Phenothiazine Start: 05-11-2020 promethazine (PHENERGAN) tablet 12.5 mg 3 ml sodium chloride 9 mg/ml injection (6 sources) Start: 05-14-2020 sodium chloride flush 0.9 % injection 10 mL Start: 05-13-2020 sodium chlorid e flush 0.9 % injection 10 mL Start: 05-11-2020 10 mL, Intrave nous, EVERY 12 HOURS SCHEDULED (2 times per day), First dose on Mon05/11/20 at 0900 Start: 05-10-2020 End: 05-10-2020 0.9 % sodium chloride bolus Completed/Discontinued Medications Medication Drug Class(es) Dates Sig (Normalized) Sig (Original) acetaminophen 325 mg / HYDROcodone bitartrate 5 mg oral tablet (2 sources) Opioid Agonist Start: 11-30-2019 End: 12-02-2019 take 1 tablet by mouth every four hours as needed Hydrocodone-Acetami nophen Discontinued 1 TABLET PO EVERY 4 HOURS NEEDED 07 03November 30, 2019 December 02, 2019 1:09am acetaminophen 325 mg / oxyCODONE hydrochloride 5 mg oral tablet (5 sources) Opioid Agonist Start: 09-04-2020 End: 09-07-2020 take 1 tablet by mouth every six hours as needed Oxycodone-Acetamino phen Discontinued 1 TABLET PO EVERY 6 HOURS NEEDED 09 03September 04, 2020 September 07, 2020 1:03am Start: 05-15-2020 End: 05-22-2020 take 1 tablet by mouth every six hours as needed for pain, then take 1 tablet by mouth as needed for pain oxyCODONE-acetaminophen (PERCOCET) 5-325 MG per tablet Indications: Compartment syndrome of right hand, initial encounter ([facility]) Take 1 tablet by mouth every 6 hours as needed for Pain for up to 7 days. Intended supply: 5 days. Take lowest dose possible to manage pain 20 tablet 0 05/15/2020 05/22/2020 Active Start: 05-10-2020 End: 05-10-2020 oxyCODONE-acetaminophen (PER COCET) 5-325 MG per tablet 1 tablet cefepime (1 source) Cephalosporin Antibacterial Start: 05-11-2020 End: 05-11-2020 cefepime (MAXIPIME) 2 g IVPB extended (mini-bag) 50 ml clindamycin 12 mg/ml injection (1 source) Lincosamide Antibacterial Start: 05-11-2020 End: 05-12-2020 clindamycin (CLEOCIN) 600 mg in dextrose 5 % 50 mL IVPB cyclobenzaprine hydrochloride 10 mg oral tablet (2 sources) Muscle Relaxant Start: 12-25-2023 End: 02-06-2024 take 10 mg by mouth three times daily Cyclobenzaprine Discontinued 10 MG PO THREE TIMES A DAY December 25, 2023 12:00am February 06, 2024 10:11am 1 ml HYDROmorphone hydrochloride 1 mg/ml cartridge (2 sources) Opioid Agonist Start: 05-10-2020 End: 05-10-2020 HYDROmorphone (DILAUDID) injection 1 mg Start: 05-10-2020 End: 05-10-2020 HYDROmorphone (DILAUDID) inj ection 1 mg nafcillin 2000 mg injection (1 source) Penicillin-class Antibacterial Start: 05-12-2020 End: 05-14-2020 nafcillin sodium in dextrose 2 GM/100ML SOLN 2 g nafcillin 1 g in dextrose 5 % 50 mL IVPB (1 source) Start: 05-12-2020 End: 05-12-2020 nafcillin 1 g in dextrose 5 % 50 mL IVPB naproxen 500 mg oral tablet (2 sources) Nonsteroidal Anti-inflammatory Drug Start: 12-25-2023 End: 02-06-2024 take 1 tablet by mouth twice daily Naproxen (Naprosyn) 500 mg tablet Discontinued 500 MG PO TWICE A DAY December 25, 2023 12:00am February 06, 2024 10:11am piperacillin 3000 mg / tazobactam 375 mg injection (1 source) Penicillin-class Antibacterial, beta Lactamase Inhibitor Start: 05-11-2020 End: 05-12-2020 piperacillin-tazo bactam (ZOSYN) 3.375 g in dextrose 50 mL IVPB extended infusion (premix) predniSONE 20 mg oral tablet (2 sources) Start: 12-08-2020 End: 12-08-2020 predniSONE (DELTASONE) tablet 40 mg Start: 12-08-2020 End: 12-12-2020 take 2 tablets by mouth once daily predniSONE (DELTASONE) 20 MG tablet Take 2 tablets by mouth daily for 4 days 8 tablet 0 12/08/2020 12/12/2020 Active vancomycin (VANCOCIN) 2,000 mg in dextrose 5 % 500 mL IVPB (1 source) Start: 05-11-2020 End: 05-12-2020 vancomycin (VANCOCIN) 2,000 mg in dextrose 5 % 500 mL IVPB Problems Active Problems Problem Classification Problem Date Documented Da te Episodic/Chronic Diabetes mellitus without complication (7 sources) Type 2 diabetes mellitus; Translations: [Type 2 diabetes mellitus with hyperglycemia] Onset: 05-11-2020 05-11-2020 Chronic Other connective tissue disease (2 sources) Neuropathic pain; Translations: [Neuralgia and neuritis, unspecified] 05-05-2020 Episodic Other connective tissue disease (3 sources) Pain in right hand; Translations: [Right hand pain] 05-11-2020 Other eye disorders (1 source) Unspecified disorder of eye and adnexa; Translations: [Unspecified disorder of eye and adnexa] Onset: 06-21-2024 Episodic Other nervous system disorders (3 sources) Compartment syndrome of hand; Translations: [Compartment syndrome of right hand, initial encounter ([facility])] Onset: 05-10-2020 05-11-2020 Chronic Other skin disorders (1 source) Eruption; Translations: [Rash and other nonspecific skin eruption] Episodic Skin and subcutaneous tissue infections (12 sources) Cutaneous abscess of right hand; Translations: [Cellulitis of left hand] Onset: 05-11-2020 05-11-2020 Episodic Spondylosis; intervertebral disc disorders; other back problems (2 sources) Low back pain; Translations: [Low back pain] 12-25-2023 Episodic Sprains and strains (2 sources) Strain of neck muscle; Translations: [Strain of muscle, fascia and tendon at neck level, initial encounter] 12-06-2019 Episodic Past or Other Problems Problem Classification Problem Date Documented Date Episodic/Chronic Abdominal pain (3 sources) Left flank pain; Translations: [Unspecified abdominal pain] Onset: 12-29-2023 12-25-2023 Episodic Bacterial infection; unspecified site (7 sources) Infection by methicillin sensitive Staphylococcus aureus; Translations: [Methicillin susceptible Staphylococcus aureus infection, unspecified site] Onset: 05-12-2020 05-12-2020 Episodic Fluid and electrolyte disorders (7 sources) Hyponatremia; Translations: [Hypo-osmolality and hyponatremia] Onset: 05-11-2020 05-11-2020 Episodic Infective arthritis and osteomyelitis (except that caused by tuberculosis or sexually transmitted disease) (7 sources) Wrist pyogenic arthritis; Translations: [Pyogenic arthritis, unspecified] Onset: 05-11-2020 05-11-2020 Episodic Other connective tissue disease (7 sources) Necrotizing fasciitis; Translations: [Necrotizing fasciitis] Onset: 05-11-2020 05-11-2020 Episodic Other connective tissue disease (4 sources) Pain in right hand; Translations: [Pain in right hand] Onset: 05-11-2020 07-15-2022 Episodic Other injuries and conditions due to external causes (4 sources) Compartment syndrome; Translations: [Traumatic compartment syndrome of right upper extremity, initial encounter] Onset: 05-11-2020 07-15-2022 Episodic Other liver diseases (7 sources) Increased creatine kinase level; Translations: [Abnormal levels of other serum enzymes] Onset: 05-11-2020 05-11-2020 Episodic Urinary tract infections (7 sources) Pyuria; Translations: [Pyuria] Onset: 05-11-2020 05-11-2020 Episodic Results Test Name Value Interpretation Reference Range Facility Emergency Department Summary on 06-01-2024 Emergency Department Summary [facility] Medical Records Department [address] [place] [address] Emergency Department Summary 06/01/24 MR#: [id number] Acct: [id number] Name: HANNAH JEFFERSON Rep #: [id number] : 1965 58 From: Rashad Merrill DO PCP: Dr. Tommie Burr MD Status:DEP ER Location: ED HPI History of Present Illness Chief Complaint: Eye Problem Informant: patient Onset/Context/Timing Location: Left Eye Onset: Yesterday Context: Sudden Onset Timing: Continuous Worsened by: Opening his eye Relieved by: Nothing Associated Symptoms Associated Symptoms - Eyes: Burning, Crusting, Drainage, Eyelid swelling, Foreign body sensation, Pain and Redness History of injury: Yes and Foreign body Visual correction: Glasses (Reading glasses) Narrative Narrative: Patient presents with foreign body sensation to his left eye that occurred yesterday. Patient states he was working on a car and was wearing a full face shield yesterday. Patient states that when he was done, he started to get sweaty and he took his face shield off. Patient states that his friend was blowing some of the dust and dirt from the car. Patient states that something got into his eye at that time. Patient admits to some burning and redness this morning. Patient admits to some swelling and increased tearing from his left eye. Patient states she has difficulty opening his eye due to the pain. PFSH PFSH no medical history Home Medications ???Medication ???Instructions ???Recorded ???Last Taken ???Type cephalexin 500 mg capsule 500 mg PO Q6 #40 CAPSULES 02/06/24 Unknown Rx cephalexin 500 mg capsule 500 mg PO Q6H 10 days #40 caps 02/06/24 Unknown Rx Allergy/AdvReac Type Severity Reaction Status Date / Time No Known Allergies Allergy Verified 06/01/24 08:35 Surgical History (Updated 06/01/24 @ 09:[address] Rashad Merrill DO) Hx of hand surgery Social History Smoking Status: Current every day smoker tobacco type: cigarettes ROS ROS ED Constitutional Constitutional ED: Denies chills or fever(s) ENT ENT ED: Denies rhinorrhea or sore throat Cardiovascular Cardiovascular: Denies chest pain or palpitations Respiratory/Chest Respiratory/Chest: Denies cough or dyspnea Gastrointestinal Gastrointestinal: Denies nausea or vomiting Genitourinary Genitourinary ED: Denies dysuria or hematuria Musculoskeletal Musculoskeletal: Denies back pain or neck pain Integumentary Denies abscess or rash Neurologic Neurologic: Denies headache(s) or weakness Allergic/Immunologic Allergic/Immunologic ED: Denies mouth swelling or urticaria EXAM Physical Exam Const Vital Signs: 06/01/24 08:35 Temperature 97.6 F L Temperature Source Temporal Pulse Rate 86 Respiratory Rate 16 Blood Pressure 138/97 H Blood Pressure Mean 110 Pulse Ox 98 Oxygen Delivery Method Room Air Positive well nourished and well developed General Appearance ED: well developed and NAD Eyes Eyes Narrative: Pupils are equal, round, and reactive to light bilaterally. Extraocular muscles are intact. Conjunctiva was injected on the left. There is a foreign body noted over the inferior medial aspect of the left cornea at approximately the 8 o'clock position. There is a rust ring noted. Anterior chamber was clear. There is no hyphema noted. Patient could not tolerate funduscopic examination. Neck supple and no JVD Neuro oriented x3, CN's II-XII intact bilaterally, moves all extremities and no sensory deficits noted Sensorium / Orientation: alert Motor Exam: strength 5/5 throughout MDM MDM MDM Narrative Medical decision making narrative: The foreign body was removed under slit-lamp examination using ophthalmic filippo. Patient was unable to tolerate further removal of the rust ring. Patient was given erythromycin ophthalmic ointment. Patient was given a referral for ophthalmology for follow-up care in 2 days. Patient was instructed to return if worse in any way. Patient understood and was agreeable with plan. All questions were answered. Discharge Plan Triage Chief Complaint: Eye Problem ED Provider: Rashad Merrill Dx/Rx/DC Orders Clinical Impression: Acute foreign body of left cornea, Corneal abrasion, left, Tobacco use disorder Instructions: ED Corneal Abrasion, ED RUST RING Prescriptions: No Action cephalexin 500 mg capsule 500 mg PO Q6H 10 Days Qty: 40 0RF cephalexin 500 mg capsule 500 mg PO Q6 Qty: 40 0RF Primary Care Provider: Care Physician,No Primary Referrals: Robert Romero MD [Med Staff - Active Staff] - 2 Days Care Physician,No Primary [Primary Care Provider] - Print Language: Australian Disposition Disposition: Home, Self Care What to do if you have Problems For any increased pain, (more content not included)... Normal [facility] Emergency Department Summary on 02-06-2024 Emergency Department Summary [facility] Medical Records Department [address] [place] [address] Emergency Department Summary 02/06/24 MR#: [id number] Acct: [id number] Name: HANNAH JEFFERSON Rep #: [id number] : 1965 58 From: Christopher Conti MD PCP: Care Physician,No Primary Status:REG ER Location: ED HPI History of Present Illness Chief Complaint: Eye Problem Detail of Chief Complaint: Left eye swelling and discomfort. Informant: patient Onset/Context/Timing Location: Left Eye Onset: Today Context: Gradual Onset Timing: Continuous Current Severity: Mild Maximum Severity: Mild Associated Symptoms Associated Symptoms - Eyes: Burning and Photophobia History of injury: No Visual correction: Glasses (Reading glasses. No contacts.) Narrative Narrative: 58-year-old male uses reading glasses but does not wear contacts never had eye surgery. 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 Said he wears a large shield so he does not think there is any way got a foreign body in his left eye. Today he awoke with left eye pain and swelling with his eye closed. Does not believe there is any chemicals in the eye. Said this is never happened before. Denies any direct trauma. Prior similar symptoms: No Recent Illness/Hospitalizatio n: No PFSH PFSH Medical History no medical history Home Medications cephalexin 500 mg capsule 500 mg PO Q6H 10 days #40 caps 02/06/24 [Rx Last Taken Unknown] Allergy/AdvReac Type Severity Reaction Status Date / Time No Known Allergies Allergy Verified 02/06/24 09:38 Social History Smoking Status: Current every day smoker tobacco type: cigarettes ROS ROS ED ROS Narrative Denies recent illness Review of Systems ROS Unobtainable: Denies due to encephalopathy Constitutional Constitutional ED: Denies chills or fever(s) Eyes Eyes: Denies blurry vision ENT ENT ED: Denies ear pain or rhinorrhea Cardiovascular Cardiovascular: Denies chest pain Respiratory/Chest Respiratory/Chest: Denies cough or dyspnea Gastrointestinal Gastrointestinal: Denies abdominal pain, diarrhea, nausea or vomiting Genitourinary Genitourinary ED: Denies dysuria or hematuria Musculoskeletal Musculoskeletal: Denies arthralgias or back pain Integumentary Denies abscess or Abrasions Neurologic Neurologic: Denies headache(s) Psychiatric Psychiatric: Denies anxiety Endocrine Endocrinology: Denies polydipsia Hematologic/Lymphatic Hematologic/Lymphatic: Denies easy bleeding, easy bruising or lymphadenopathy Allergic/Immunologic Allergic/Immunologic ED: Denies mouth swelling, tongue swelling or urticaria EXAM Physical Exam Narrative Exam Narrative: 58-year-old male vital signs stable afebrile. HEENT exam pupils round react to light his motions are intact. His left eye is closed but unable to open it. There is no discharge. I will do a more formal eye exam once I get his eye locally anesthetized with tetracaine. No facial droop. Lungs clear to auscultation bilaterally. Heart regular rhythm. No murmur. Abdomen soft nontender. Moving all 4 extremities. He has weakness which is chronic and Laki use of the right hand from a prior infection and surgery. Neurologically is awake alert. Answering questions following commands. Repeat exam I placed tetracaine in his left eye and headache slit-lamp exam with fluorescein. I saw no foreign body. No corneal abrasion. Upper and lower lids were everted were okay. On his right upper medial eyebrow appears to be an early skin subcu abscess. It is not fluctuant it is hard. I did not think I would get anything out of I drained it and patient did not want me to attempt to drain it if we integrating anything out of it. He will be started on Keflex 4 times a day. Return if it comes to ahead or gets larger to be drained. Warm compresses. Follow-up with the eye doctor if his eyes not improving. He did have visual acuity done. It was 2069 in the affected left eye 20/25 in the right eye. And he said he could not do both eyes. Const Vital Signs: 02/06/24 09:38 Temperature 98 F Temperature Source Temporal Pulse Rate 96 Respiratory Rate 18 Blood Pressure 170/94 H Blood Pressure Mean 119 Pulse Ox 100 Oxygen Delivery Method Room Air Positive well nourished and well developed; Negative for obese, cachectic, contractures or unkempt General Appearance ED: well developed and NAD; Negative for unkempt, cachectic or contractures Nutritional Appearance: Negative for cachectic or obese HEENT Denies other atraumatic; Negative for trauma, tenderness or other Eyes Eyes Narrative: Pupils are reactive light. Left eye closed. They are open. He is photophobic. There is no orbital or periorbital cellulitis. No preauricular lymphad (more content not included)... Normal [facility] Abdomen/Pelvis without Conto n 12-25-2023 Abdomen/Pelvis without Cont [facility] Imaging Services [address] [place] [place] [address] Abdomen/Pelvis without Cont MR#: [id number] Acct: [id number] Name: HANNAH JEFFERSON Rep #: [id number] : 1965 M 58 From: Nathaniel olmos MD PCP: Care Physician,No Primary Status: REG ER Study: Abdomen/Pelvis without Cont Date of Exam: 12/01 02/22 Exam# [id number] Ordering Dr: Myles Rivera MD [id number] STUDY: CT ABDOMEN AND PELVIS WITHOUT CONTRAST REASON FOR EXAM: Male, 58 years old. Left-sided abdominal pain. RADIATION DOSAGE (If Supplied By Facility): CTDIvol = ( 17.82 ) mGy, DLP = ( 979.22 ) mGycm TECHNIQUE: Transaxial images were obtained from the dome of the diaphragm to the symphysis pubis without oral contrast, and without intravenous contrast. Sagittal and coronal images were reconstructed. Individualized dose optimization techniques were used for this CT. COMPARISON: Comparison is made with prior study dated November 30, 2019. FINDINGS: The visualized lung bases are unremarkable. The visualized portions of the heart are within normal limits. The previously seen cyst in the dome of the right lobe of liver as increased in size. It presently measures 3 cm x 2.8 cm. Minimal calcific rim is seen along its posterior aspect. Stable small cyst seen in the left lobe of the liver. Normal gallbladder and extrahepatic biliary system. Normal spleen. Normal pancreas. Normal bilateral adrenal glands. Normal right kidney. Normal left kidney. Normal visualized stomach. Normal small intestine. Normal colon. The appendix is visualized and appears normal. There is diffuse atherosclerotic calcification of the abdominal aorta. Mild aneurysmal dilatation of the distal abdominal aorta with a transverse dimension of 2.9 cm. Dilatation of the proximal portion of the right common iliac artery measuring 2.5 cm in transverse dimension. Normal inferior vena cava. Normal retroperitoneum. Normal urinary bladder. The prostate measures 4.9 cm x 4.3 cm. There is a small umbilical hernia containing fat. There are degenerative changes of the visualized lumbar spine. CT/Abdomen/Pelvis without Cont IMPRESSION: Atrophic changes of the abdominal aorta with minimal aneurysmal dilatation of the distal abdominal aorta with a transverse dimension of 2.9 cm. Dilatation of the proximal portion of the right common iliac artery. Mild prostatic enlargement. Interval increase in size of the previously seen cyst in the dome of the right lobe of the liver. Correlation with ultrasound is recommended. Electronically Signed: Nathaniel Feng MD at 13:41 EDT , CC: Dr. Myles Rivera MD; No Primary Care Physician Tree Feller: Signed Normal [facility] Absolute lymphocyte countOrd ered By: Myles Rivera on 12-25-2023 Lymphocytes Auto (Unsp spec) [#/Vol] 1.69 10*3/uL 0.83-4.51 [facility] Automated lymphocyte count a s percentage of total leukocytesOrdered By: Myles Rivera on 12-25-2023 Lymphocytes/100 WBC Auto (Unsp spec) 23.7 % 19-41 [facility] Basophil percentageOrdered B y: Myles Rivera on 12-25-2023 Basophil percentage 0-5 SEEN /hpf 0-5 [facility] Basophils/100 WBC (Bld) 1.3 % 0-1 [facility] Bilirubin [Mass/Vol] 0.40 mg/dL 0.20-1.[address] [facility] Comment on above: For patients on eltr ombopag therapy, use of Dimension [place] TBIL is not recommended. Chloride [Moles/Vol] 104 mmol/L 98-[address] [facility] Eosinophils/100 WBC (Bld) 1.8 % 0-5 [facility] Glucose [Mass/Vol] 145 mg/dL 74-106 [facility] Comment on above: Fasting Glucose resu lt greater than or equal to 126 mg/dL suggests DIABETES MELLITUS per A.D.A. criteria. Hemoglobin (Bld) [Mass/Vol] 16.2 g/dL 13.0-16.5 [facility] Monocytes/100 WBC (Bld) 7.4 % 0-10 [facility] Neutrophils (Bld) [#/Vol] 4.7 10*3/uL 2.0-7.7 [facility] Neutrophils/100 WBC (Bld) 65.7 % 47-70 [facility] Potassium [Moles/Vol] 4.1 mmol/L 3.5-5.1 [facility] Protein [Mass/Vol] 7.2 g/dL 6.4-8.2 [facility] Sodium [Moles/Vol] 135 mmol/L 136-145 [facility] WBC (Bld) [#/Vol] 7.1 10*3/uL 4.4-11.0 [facility] Bilirubin Test strip Ql (U)O rdered By: Myles Rivera on 12-25-2023 Bilirubin Ql (U) Negative Negative [facility] CBC W/Diff, Automatedon 12-01 Absolute Lymph 1.69 X10 3/uL Normal 0.83-4.51 [facility] Comment on above: Performed By: #### L 100.0100, L500.4050 #### [facility] [address] [place], [place], [id number] Absolute Neut 4.7 X10 3/uL Normal 2.0-7.7 [facility] Comment on above: Performed By: #### L 100.0100, L500.4050 #### [facility] [address] [place], [address] Basophils/100 WBC (Bld) 1.3 % High 0-1 [facility] Comment on above: Performed By: #### L 100.0100, L500.4050 #### [facility] [address] [place], [address] Eosinophils/100 WBC (Bld) 1.8 % Normal 0-5 [facility] Comment on above: Performed By: #### L 100.0100, L500.4050 #### [facility] [address] [place], [address] Erythrocyte distribution width (RBC) [Ratio] 12.9 % Normal 11.6-14.6 [facility] Comment on above: Performed By: #### L 100.0100, L500.4050 #### [facility] [address] [place], [address] Hematocrit (Bld) [Volume fraction] 48.0 % Normal 40-54 [facility] Comment on above: Performed By: #### L 100.0100, L500.4050 #### [facility] [address] [place], [address] Hemoglobin (Bld) [Mass/Vol] 16.2 g/dL Normal 13.0-16.5 [facility] Comment on above: Performed By: #### L 100.0100, L500.4050 #### [facility] [address] [place], [address] IG% 0.100 Normal 0.0-0.9 [facility] Comment on above: Result Comment: IG% - Immature Granulocytes (promyelocytes, myelocytes and metamyelocytes) > 1% indicates that a LEFT SHIFT is Present. Performed By: #### L 100.0100, L500.4050 #### [facility] [address] [place], [address] Lymphocytes/100 WBC (Bld) 23.7 % Normal 19-41 [facility] Comment on above: Performed By: #### L 100.0100, L500.4050 #### [facility] [address] [place], [address] MCH (RBC) [Entitic mass] 30.0 pg Normal 27.0-32.0 [facility] Comment on above: Performed By: #### L 100.0100, L500.4050 #### [facility] [address] [place], [address] MCHC (RBC) [Mass/Vol] 33.8 g/dL Normal 32-36 [facility] Comment on above: Performed By: #### L 100.0100, L500.4050 #### [facility] [address] [place], [address] MCV (RBC) [Entitic vol] 88.9 fL Normal 80-94 [facility] Comment on above: Performed By: #### L 100.0100, L500.4050 #### [facility] [address] [place], [address] Monocytes/100 WBC (Bld) 7.4 % Normal 0-10 [facility] Comment on above: Performed By: #### L 100.0100, L500.4050 #### [facility] [address] [place], [address] Neutrophils/100 WBC (Bld) 65.7 % Normal 47-70 [facility] Comment on above: Performed By: #### L 100.0100, L500.4050 #### [facility] [address] [place], [address] Nucleated RBC (Bld) [#/Vol] 0 10*3/uL Normal 0-5 [facility] Comment on above: Performed By: #### L 100.0100, L500.4050 #### [facility] [address] [place], [address] Platelet mean volume (Bld) [Entitic vol] 9.7 fL Normal 6.2-12.0 [facility] Comment on above: Performed By: #### L 100.0100, L500.4050 #### [facility] [address] [place], [address] Platelets (Bld) [#/Vol] 248 10*3/uL Normal 150-450 [facility] Comment on above: Performed By: #### L 100.0100, L500.4050 #### [facility] [address] [place], [address] RBC (Bld) [#/Vol] 5.40 10*6/uL Normal 4.6-6.2 [facility] Comment on above: Performed By: #### L 100.0100, L500.4050 #### [facility] [address] [place], [address] RDW SD 42.1 fl Normal 35.1-43.9 [facility] Comment on above: Performed By: #### L 100.0100, L500.4050 #### [facility] [address] [place], [address] WBC (Bld) [#/Vol] 7.1 10*3/uL Normal 4.4-11.0 [facility] Comment on above: Performed By: #### L 100.0100, L500.4050 #### [facility] [address] [place], [address] Comprehensive Metabolic Prof ilon 12-25-2023 Albumin [Mass/Vol] 3.8 g/dL Normal 3.2-5.0 [facility] Comment on above: Performed By: #### L 100.0100, L500.4050 #### [facility] [address] [place], [address] Albumin/Globulin [Mass ratio] 1.1 {ratio} Normal 0.9-2.4 [facility] Comment on above: Performed By: #### L 100.0100, L500.4050 #### [facility] [address] [place], [address] ALK P 91 U/L Normal 45-117 [facility] Comment on above: Performed By: #### L 100.0100, L500.4050 #### [facility] [address] [place], [address] ALT [Catalytic activity/Vol] 25 U/L Normal 16-61 [facility] Comment on above: Performed By: #### L 100.0100, L500.4050 #### [facility] [address] [place], [address] AST [Catalytic activity/Vol] 17 U/L Normal 15-37 [facility] Comment on above: Performed By: #### L 100.0100, L500.4050 #### [facility] [address] [place], [address] Bilirubin [Mass/Vol] 0.40 mg/dL Normal 0.20-1.[address] [facility] Comment on above: Result Comment: For patients on eltrombopag therapy, use of Dimension [place] TBIL is not recommended. Performed By: #### L 100.0100, L500.4050 #### [facility] [address] [place], [address] BUN/CRE 9.6 RATIO Low 10-20 [facility] Comment on above: Performed By: #### L 100.0100, L500.4050 #### [facility] [address] [place], [address] CA,Total 8.9 mg/dL Normal 8.5-10.1 [facility] Comment on above: Performed By: #### L 100.0100, L500.4050 #### [facility] [address] [place], [address] Chloride [Moles/Vol] 104 mmol/L Normal 98-[address] [facility] Comment on above: Performed By: #### L 100.0100, L500.4050 #### [facility] [address] [place], [address] CO2 [Moles/Vol] 27.0 mmol/L Normal 21.0-32.0 [facility] Comment on above: Performed By: #### L 100.0100, L500.4050 #### [facility] [address] [place], [address] Creatinine [Mass/Vol] 0.94 mg/dL Normal 0.70-1.30 [facility] Comment on above: Result Comment: The validity of the calculated GFR GFRAA in patients over 70 years has not been determined. Clinical correlation is essential. Performed By: #### L 100.0100, L500.4050 #### [facility] [address] [place], [address] ECRCL 140.98 ml/min Normal [facility] Comment on above: Performed By: #### L 100.0100, L500.4050 #### [facility] [address] [place], [address] EST GFR - AA 107 mL/min Normal >60 [facility] Comment on above: Result Comment: Afri can [place] GFR Calc Performed By: #### L 100.0100, L500.4050 #### [facility] [address] [place], [address] GAP 4 Low 5-15 [facility] Comment on above: Performed By: #### L 100.0100, L500.4050 #### [facility] [address] [place], [address] GFR/1.73 sq M.predicted among non-blacks MDRD (S/P/Bld) [Vol rate/Area] 88 mL/min/{1.73_m2} Normal >60 [facility] Comment on above: Result Comment: Non- GFR Calc Performed By: #### L 100.0100, L500.4050 #### [facility] [address] [place], [address] Globulin (S) [Mass/Vol] 3.4 g/dL Normal 2.2-4.2 [facility] Comment on above: Performed By: #### L 100.0100, L500.4050 #### [facility] [address] [place], [address] Glucose [Mass/Vol] 145 mg/dL High 74-106 [facility] Comment on above: Result Comment: Fast ing Glucose result greater than or equal to 126 mg/dL suggests DIABETES MELLITUS per A.D.A. criteria. Performed By: #### L 100.0100, L500.4050 #### [facility] [address] [place], [address] Potassium [Moles/Vol] 4.1 mmol/L Normal 3.5-5.1 [facility] Comment on above: Performed By: #### L 100.0100, L500.4050 #### [facility] [address] [place], [address] Sodium [Moles/Vol] 135 mmol/L Low 136-145 [facility] Comment on above: Performed By: #### L 100.0100, L500.4050 #### [facility] [address] [place], [address] T PROT 7.2 g/dL Normal 6.4-8.2 [facility] Comment on above: Performed By: #### L 100.0100, L500.4050 #### [facility] [address] [place], [address] Urea nitrogen [Mass/Vol] 9 mg/dL Normal 7-18 [facility] Comment on above: Performed By: #### L 100.0100, L500.4050 #### [facility] [address] [place], [address] Determination of erythrocyte mean corpuscular volume (MCV)Ordered By: Myles Rivera on 12-25-2023 MCV (RBC) [Entitic vol] 88.9 fL 80-94 [facility] Emergency Department Summary on 12-25-2023 Emergency Department Summary [facility] Medical Records Department [address] [place] [address] Emergency Department Summary 12/25/23 MR#: [id number] Acct: [id number] Name: HANNAH JEFFERSON Rep #: [id number] : 1965 58 From: Myles Rivera MD PCP: Care Physician,No Primary Status:REG ER Location: ED HPI HPI - GI History of Present Illness Chief Complaint: Abd Pain Narrative Narrative: 58-year-old male states 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 He did think that he may have lifted something incorrectly and had a twinge of pain in his left low back, but it worsened today. He states it took him about an hour to get out of bed. When he had a bowel movement, he felt a tearing sensation in his left flank. It radiates from his low back towards the front. He had a normal bowel movement today. He denies any fevers or chills, no saddle anesthesia, no loss of bowel or bladder. He does state that when he pressed on his low back it does not hurt and it feels like there is pain that is sharp and stabbing more on the inside. No exacerbating or alleviating factors. He does relate history that remotely he had a kidney stone. PFSH PFS Medical History no medical history Home Medications cyclobenzaprine 10 mg tablet 10 mg PO TID PRN Muscle Spasm #20 TABLETS 12/25/23 [Rx Last Taken Unknown] naproxen 500 mg tablet (Naprosyn) 500 mg PO BID PRN pain #20 tabs 12/25/23 [Rx Last Taken Unknown] Allergy/AdvReac Type Severity Reaction Status Date / Time No Known Allergies Allergy Verified 12/25/23 11:33 Social History Smoking Status: Current every day smoker tobacco type: cigarettes ROS ROS ED ROS Narrative Constitutional: No fever, no chills. HEENT: No sore throat. No neck pain. No loss of vision. No rhinorrhea. Cardiovascular: No chest pain. No palpitations. No pedal edema. Respiratory: No cough, no shortness of breath. Abdominal: Left lower quadrant abdominal pain. No nausea. No vomiting. Genitourinary: No dysuria. No hematuria. Positive left low back to left flank pain. Musculoskeletal: No myalgias. No arthralgias. Neurologic: No headaches. No dizziness. No lightheadedness. Skin: No rash. No change in color. Psychiatric: No depression. No anxiety. EXAM Physical Exam Narrative Exam Narrative: Afebrile. Vital signs noted. HEENT: Normocephalic. Atraumatic. PERRL, EOMI. Neck soft and supple. No point tenderness or step off. Cardiovascular: Regular rate and rhythm. No murmurs, rubs, or gallops appreciated. Respiratory: No tachypnea. Lungs clear to auscultation bilaterally. Gastrointestinal: Abdomen soft, nontender, with normoactive bowel sounds. No rebound or guarding. Neurological: Awake. Alert. Nonfocal, nonlateralizing. Skin: No rash. Normal color. No pallor. Musculoskeletal: No pedal edema. Full range of motion extremities. Const Vital Signs: 12/25/23 11:32 12/25/23 13:32 Temperature 98 F Temperature Source Temporal Pulse Rate 97 89 Respiratory Rate 16 16 Blood Pressure 131/89 H 117/78 Blood Pressure Mean 103 91 Pulse Ox 100 97 Oxygen Delivery Method Room Air Room Air MDM MDM MDM Narrative Medical decision making narrative: In the differential diagnosis is ureterolithiasis versus diverticulitis versus bowel obstruction. History and physical does not certainly support a bowel obstruction. He may be having more of a lumbar radiculopathy and musculoskeletal low back pain as well, he was administered Toradol and a bolus of IV fluids for analgesia. Comprehensive workup was pursued. I do feel that CT flank is indicated to look for ureteral stone and it could also diagnose diverticulitis as well. I reviewed his laboratory work and he has normal white count of 7.1, hemoglobin normal at 16.2, hematocrit 48.0, platelet count normal at 248. Electrolyte panel shows sodium slightly low at 135 which I think is nonspecific, normal potassium of 4.1, BUN normal at 9, creatinine 0.94. AST is normal at 17 with ALT 25 and alk phos normal at 91. Urinalysis was obtained and reviewed and there is no evidence of infection or blood. I do not feel that antibiotics are indicated have lower suspicion for ureterolithiasis at this time. I reviewed the radiology report of the CT of the abdomen and pelvis without contrast which does not show any evidence of ureteral stone, no acute process. The appendix is visualized and is noninflamed. Additionally, his flank pain is on the left side. He does have an aortic aneurysm and dilation of the right proximal iliac. Smoking cessation was discussed with the patient. At this point in time, I am unsure as to the cause of his left flank (more content not included)... Normal [facility] Erythrocyte distribution wid th ratioOrdered By: Myles Rivera on 12-25-2023 Erythrocyte distribution width (RBC) [Ratio] 12.9 % 11.6-14.6 [facility] Erythrocyte distribution wid th standard deviationOrdered By: Myles Rivera on 12-25-2023 Erythrocyte distribution width (RBC) [Entitic vol] 42.1 fL 35.1-43.9 [facility] Hematocrit Auto (Bld) [Volum e fraction]Ordered By: Myles Rivera on 12-25-2023 Hematocrit (Bld) [Volume fraction] 48.0 % 40-54 [facility] Immature granulocytes/100 WB C Auto (Bld)Ordered By: Myles Rivera on 12-25-2023 Immature granulocytes/100 WBC (Bld) 0.100 % 0.0-0.9 [facility] Comment on above: IG% - Immature Granu locytes (promyelocytes, myelocytes and metamyelocytes) > 1% indicates that a LEFT SHIFT is Present. Ketones Test strip Ql (U)Ord ered By: Myles Rivera on 12-25-2023 Ketones Ql (U) 5 mg/dl Negative [facility] - Chemistry and C hemistry - challengeOrdered By: Myles Rivera on 12-25-2023 Albumin/Globulin [Mass ratio] 1.1 {ratio} 0.9-2.4 [facility] ALP [Catalytic activity/Vol] 91 U/L 45-117 [facility] ALT [Catalytic activity/Vol] 25 U/L 16-61 [facility] CO2 [Moles/Vol] 27.0 mmol/L 21.0-32.0 [facility] Globulin (S) [Mass/Vol] 3.4 g/dL 2.2-4.2 [facility] Urea nitrogen/Creatinine [Mass ratio] 9.6 mg/mg 10-20 [facility] - Hematology and Cell countsOrdered By: Myles Rivera on 12-25-2023 MCH (RBC) [Entitic mass] 30.0 pg 27.0-32.0 [facility] MCHC (RBC) [Mass/Vol] 33.8 g/dL 32-36 [facility] Nucleated RBC/100 WBC (Bld) [Ratio] 0 % 0-5 [facility] Platelet mean volume (Bld) [Entitic vol] 9.7 fL 6.2-12.0 [facility] Platelets (Bld) [#/Vol] 248 10*3/uL 150-450 [facility] Mucus LM Ql (Urine sed)Order ed By: Myles Rivera on 12-25-2023 Mucus Ql (Urine sed) 0 SEEN /hpf [facility] Nitrite Test strip Ql (U)Ord ered By: Myles Rivera on 12-25-2023 Nitrite Ql (U) Negative Negative [facility] No Panel InformationOrdered By: Myles Rivera on 12-25-2023 Urine RBC 0 SEEN /hpf 0-5 [facility] Estimated Creatinine Clearance Calc 140.98 ml/min [facility] Estimated GFR (MDRD) Amer 107 mL/min >60 [facility] Comment on above: GFR Calc Estimated GFR (MDRD) Non-Af Amer 88 mL/min >60 [facility] Comment on above: Non- GFR Calc Protein Test strip Ql (U)Ord ered By: Myles Rivera on 12-25-2023 Protein Ql (U) 30 mg/dl Negative [facility] RBC Auto (Bld) [#/Vol]Ordere d By: Myles Rivera on 12-25-2023 RBC (Bld) [#/Vol] 5.40 10*6/uL 4.6-6.2 [facility] Serum or plasma calcium chirag urement (mass/volume)Ordered By: Myles Rivera on 12-25-2023 Calcium [Mass/Vol] 8.9 mg/dL 8.5-10.1 [facility] Serum or plasma creatinine m easurement (mass/volume)Ordered By: Myles Rivera on 12-25-2023 Creatinine [Mass/Vol] 0.94 mg/dL 0.70-1.30 [facility] Comment on above: The validity of the calculated GFR & GFRAA in patients over 70 years has not been determined. Clinical correlation is essential. Serum or plasma urea nitroge n measurement (mass/volume)Ordered By: Myles Rivera on 12-25-2023 Urea nitrogen [Mass/Vol] 9 mg/dL 7-18 [facility] Squamous epithelial cells de tection in urine sediment by light microscopyOrdered By: Myles Rivera on 12-25-2023 Epithelial cells.squamous LM Ql (Urine sed) 0-5 SEEN /hpf 0-5 [facility] Thin prep Papanicolaou smear with manual screeningOrdered By: Myles Rivera on 12-25-2023 Thin prep Papanicolaou smear with manual screening 3.8 g/dL 3.2-5.0 [facility] Thin prep Papanicolaou smear with manual screening 17 U/L 15-37 [facility] Thin prep Papanicolaou smear with manual screening 4 5-15 [facility] Urinalysis, Completeon 12-24 EPI,RENAL 0-5 SEEN Normal 0-5 [facility] Comment on above: Order Comment: CLEAN CATCH Performed By: #### L 400.0001 #### [facility] [address] [place], [address] EPI,SQUAMOUS 0-5 SEEN Normal 0-5 [facility] Comment on above: Order Comment: CLEAN CATCH Performed By: #### L 400.0001 #### [facility] [address] [place], [address] WBC 0-5 SEEN Normal 0-5 [facility] Comment on above: Order Comment: CLEAN CATCH Performed By: #### L 400.0001 #### [facility] [address] [place], [address] BACTERIA 0 SEEN Normal None Seen [facility] Comment on above: Order Comment: CLEAN CATCH Performed By: #### L 400.0001 #### [facility] [address] [place], [address] Mucus Ql (Urine sed) [address] [facility] Comment on above: Order Comment: CLEAN CATCH Performed By: #### L 400.0001 #### [facility] [address] [place], [address] RBC 0 SEEN Normal 0-5 [facility] Comment on above: Order Comment: CLEAN CATCH Performed By: #### L 400.0001 #### [facility] [address] [place], [address] Urine blood detectionOrdered By: Myles Rivera on 12-25-2023 RBC Ql (U) 10 /ul Negative [facility] Urine clarityOrdered By: Natalia Rivera on 12-25-2023 Clarity (U) Clear Clear [facility] Urine color determinationOrd ered By: Myles Rivera on 12-25-2023 Color (U) Yellow Yellow [facility] Urine glucose detectionOrder ed By: Myles Rivera on 12-25-2023 Glucose Ql (U) Normal mg/dl Normal [facility] Urine leukocyte esterase det ection by dipstickOrdered By: Myles Rivera on 12-25-2023 Leukocyte esterase Test strip Ql (U) 100 /ul Negative [facility] Urine pHOrdered By: Myles rios on 12-25-2023 pH (U) 7.0 [pH] 5.0 - 8.0 [facility] Urine sediment bacteria coun t by microscopy (number/high power field)Ordered By: Myles Rivera on 12-25-2023 Bacteria LM.HPF (Urine sed) [#/Area] 0 /[HPF] None Seen [facility] Urine sediment renal epithel ial cell count by microscopy (number/high power field)Ordered By: Myles Rivera on 12-25-2023 Epithelial cells.renal LM.HPF (Urine sed) [#/Area] 0 /[HPF] 0-5 [facility] Urine specific gravity measu rementOrdered By: Myles Rivera on 12-25-2023 Specific gravity (U) [Rel density] 1.010 1.002-1.030 [facility] Urine urobilinogen measureme ntOrdered By: Myles Rivera on 12-25-2023 Urobilinogen Ql (U) 4 mg/dl Normal [facility] ED Nursing Noteon 04-05-2023 ED Nursing Note Pt presents to the E D with acute left hand swelling. Pt states he woke up with slight discomfort and was doing yard work. When he noticed swelling. Pt states he had similar sx with his right hand. Pt was able to walk back to the unit without any difficulty. Pt is alert and oriented x's 4. Pt call light is within reach Normal [facility] ED Provider Noteon ED Provider Note Emergency Department Encounter Pt Name: Alex Jefferson Birthdate 1965 Date of evaluation: 04/05/2023 Provider: SUSY LEIVA MD CHIEF COMPLAINT No chief complaint on file. HISTORY OF PRESENT ILLNESS HPI Alex Jefferson is a 57 y.o. male with history that includes infection and compartment syndrome of the right hand presents to the emergency department for evaluation of redness and swelling and pain over the left fourth and fifth MCP joints that he first noticed this morning when he was reaching into his left chest pocket to pull out a pack of cigarettes. No fever or chills. Does not recall any trauma. Given his history with the right hand, he wanted to be sure this was not an infection now improving in the left hand. Nursing Notes were reviewed. History reviewed. No pertinent past medical history. REVIEW OF SYSTEMS Review of Systems Several elements of the ROS reviewed and otherwise acutely negative except as in the HPI. PHYSICAL EXAM ED Triage Vitals [04/05/23 1242] Temp Heart Rate Resp BP 37.1 ?C (98.7 ?F) 82 20 (!) 113/99 SpO2 Temp Source Heart Rate Source Patient Position 98 % Oral Monitor Sitting BP Location FiO2 (%) Right arm -- Physical Exam Constitutional: General: He is not in acute distress. Appearance: He is not ill-appearing. Cardiovascular: Rate and Rhythm: Normal rate and regular rhythm. Comments: 2+ left radial pulse Musculoskeletal: Comments: Full range of motion of the left fourth and fifth MCP joints with some discomfort. Normal range of motion of the other joints of the left hand and wrist. Mild tenderness at the left fourth and fifth MCP joints to palpation. Skin: General: Skin is warm and dry. Capillary Refill: Capillary refill takes less than 2 seconds. Comments: Mild erythema and swelling without fluctuance or new skin lesions over the left dorsal 4th and 5th MCP joints. Neurological: Mental Status: He is alert. Psychiatric: Mood and Affect: Mood normal. EMERGENCY DEPARTMENT COURSE and DIFFERENTIAL DIAGNOSIS/MDM: Vitals: Vitals: 04/05/23 1242 BP: (!) 113/99 BP Location: Right arm Patient Position: Sitting Pulse: 82 Resp: 20 Temp: 37.1 ?C (98.7 ?F) TempSrc: Oral SpO2: 98% The patient presented with a chief complaint of redness and swelling of the left hand. There is no evidence of abscess, but we will obtain an x-ray to assess for evidence of fracture. Otherwise, this appears most consistent with gout. Cannot exclude early cellulitis and given his history, I will prescribe some antibiotics to cover for strep and MSSA. Plan to follow-up with Ortho hand or return to the ED if symptoms progress or worsen. I reviewed the chart noting that he grew MSSA in the right hand. ED Course as of 04/05/23 1830 Wed Apr 05, 2023 1340 XR hand 3+ views left 1. 2-3 mm linear radiopaque foreign body projecting within the volar soft tissues overlying the proximal 1/3 of the fifth metacarpal. 2. 2-3 mm radiopaque foreign body projecting within the soft tissues of the first webspace. 3. No additional radiopaque foreign body. No soft tissue gas by radiograph. [AK] ED Course User Index [AK] Susy Leiva MD Diagnoses as of 04/05/231829 Cellulitis of left hand CONSULTS: None PROCEDURES: Unless otherwise noted below, none Procedures DISPOSITION/PLAN Discharge 04/05/2023 01:40:25 PM PATIENT REFERRED TO: [facility] [address] [place] [address] Dr [place] [address] Schedule an appointment as soon as possible for a visit in 2 days DISCHARGE MEDICATIONS: ED Prescriptions Medication Sig Dispense Start Date End Date Auth. Provider cephalexin (Keflex) 500 MG capsule Take 1 capsule (500 mg) by mouth in the morning and 1 capsule (500 mg) at noon and 1 capsule (500 mg) in the evening and 1 capsule (500 mg) before bedtime. Do all this for 10 days. 40 capsule 04/05/2023 04/15/2023 Susy Leiva MD Discharge Medication List as of 04/05/2023 1:48 PM START taking these medications Details cephalexin (Keflex) 500 MG capsule Take 1 capsule (500 mg) by mouth in the morning and 1 capsule (500 mg) at noon and 1 capsule (500 mg) in the evening and 1 capsule (500 mg) before bedtime. Do all this for 10 days., Starting 04/05/2023, Until 04/15/2023, Normal Susy Leiva MD Emergency Medicine Susy Leiva MD 04/05/23 1830 Normal [facility] XR Hand - left 3 Viewson 1. 2-3 mm linear radiopaque foreign body projecting within the volar soft tissues overlying the proximal 1/3 of the fifth metacarpal. 2. 2-3 mm radiopaque foreign body projecting within the soft tissues of the first webspace. 3. No additional radiopaque foreign body. No soft tissue gas by radiograph. Report Dictated on Electronically Signed By: Sathya Vee Electronically Signed Date/Time: 04/05/2023 1:29 PM [facility] RADIOLOGY SYSTEM Patient Name: ALEX JEFFERSON : 1965 Exam Date/Time: 04/05/2023 13:07 Procedure: XR HAND 3+ VIEWS LEFT Ordering Provider: LEIVA ANIS Reason For Exam: Hand swelling, infection suspected, xray done, next study Left hand CLINICAL INDICATION: Pain TECHNIQUE: Three views of the left hand COMPARISON: None FINDINGS: No cortical or trabecular irregularity to suggest a fracture. Bones are in normal anatomic alignment. 2-3 mm linear radiopaque foreign body projecting within the volar soft tissues overlying the proximal 1/3 of the fifth metacarpal. 2-3 mm radiopaque foreign body projecting within the soft tissues of the first webspace. No additional radiopaque foreign body. No soft tissue gas by radiograph. 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 Scattered intraosseous cystic changes throughout the proximal distal carpal rows. Normal bone mineral density. [facility] RADIOLOGY SYSTEM Sathya Vee MD - 04/05/2023 [facility] 1965 [id number] Exam Date/Time: 04/05/2023 13:07 Procedure: XR HAND 3+ VIEWS LEFT Ordering Provider: LEIVA ANIS Reason For Exam: Hand swelling, infection suspected, xray done, next study Left hand CLINICAL INDICATION: Pain TECHNIQUE: Three views of the left hand COMPARISON: None FINDINGS: No cortical or trabecular irregularity to suggest a fracture. Bones are in normal anatomic alignment. 2-3 mm linear radiopaque foreign body projecting within the volar soft tissues overlying the proximal 1/3 of the fifth metacarpal. 2-3 mm radiopaque foreign body projecting within the soft tissues of the first webspace. No additional radiopaque foreign body. No soft tissue gas by radiograph. 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 Scattered intraosseous cystic changes throughout the proximal distal carpal rows. Normal bone mineral density. IMPRESSION: 1. 2-3 mm linear radiopaque foreign body projecting within the volar soft tissues overlying the proximal 1/3 of the fifth metacarpal. 2. 2-3 mm radiopaque foreign body projecting within the soft tissues of the first webspace. 3. No additional radiopaque foreign body. No soft tissue gas by radiograph. Report Dictated on Electronically Signed By: Sathya Vee Electronically Signed Date/Time: 04/05/2023 1:29 PM EDT [employer] [facility] Radiology Study observation (narrative) Rolando alth XR Hand - left 3 ViewsOrdere d By: Sathya Vee on 04-05-2023 [employer] Work Phone: Comprehensive Metabolic Pane ulises 12-08-2020 Albumin [Mass/Vol] 3.7 g/dL 3.5 - 5.0 g/dL [employer] Work Phone: ALP [Catalytic activity/Vol] 80 U/L 38 - 126 U/L [employer] Work Phone: ALT [Catalytic activity/Vol] 13 U/L 0 - 49 U/L [employer] Work Phone: Comment on above: The ALT test is perf ormed by an updated assay method. Please note that the reference intervals have been changed and are now sex specific. Anion gap [Moles/Vol] 6 mmol/L 3 - 13 mmol/L [employer] Work Phone: AST [Catalytic activity/Vol] 22 U/L 15 - 46 U/L [employer] Work Phone: Bilirubin Ql (U) 0.6 mg/dL 0.2 - 1.3 mg/dL [employer] Work Phone: Calcium [Mass/Vol] 8.8 mg/dL 8.4 - 10. 4 mg/dL [employer] Work Phone: Chloride [Moles/Vol] 103 mmol/L 98 - 10 7 mmol/L [employer] Work Phone: CO2 [Moles/Vol] 29 mmol/L 22 - 30 mmol/L [employer] Work Phone: Creatinine [Mass/Vol] 0.87 mg/dL 0.52 - 1.25 mg/dL [employer] Work Phone: EGFR IF NonAfrican Albanian >90.0 >60 mL/min [employer] Work Phone: Comment on above: KDIGO guidelines pro vide the following GFR categories: Stage GFR(ml/min/1.73 m2) Terms G1 >=90 Normal or high G2 60-89 Mildly decreased* G3a 45-59 Mildly to moderately decreased G3b 30-44 Moderately to severely decreased G4 15-29 Severely decreased G5 <15 Kidney failure *Relative to young adult level. In the absence of evidence of kidney damage, neither GFR category G1 nor G2 fulfill the criteria for CKD. The CKD-EPI equation is validated in individuals 18 years of age and older. Currently the best equation for estimating glomerular filtration rate (GFR) from serum creatinine in children is the Bedside Quevedo equation. It is less accurate in patients with extremes of muscle mass, restriction of dietary protein, ingestion of creatine, extra-renal metabolism of creatinine, or treatment with medications that affect renal tubular creatinine secretion. GFR/1.73 sq M predicted among blacks MDRD (S/P/Bld) [Vol rate/Area] mL/min/{1.73_m2} >60 mL/min [employer] Work Phone: Glucose [Mass/Vol] 106 mg/dL High 70 - 100 mg/dL [employer] Work Phone: Interpretation and review of laboratory results Abnormal [employer] Work Phone: Potassium [Moles/Vol] 3.9 mmol/L 3.5 - 5.1 mmol/L [employer] Work Phone: Protein [Mass/Vol] 6.2 g/dL Low 6.3 - 8.2 g/dL [employer] Work Phone: Sodium [Moles/Vol] 139 mmol/L 135 - 145 mmol/L [employer] Work Phone: Urea nitrogen [Mass/Vol] 12 mg/dL 7 - 20 mg/dL [employer] Work Phone: Test Performed by [employer], [address] [place] [id number] [employer] Work Phone: Hemogram (CBC) w/Auto Diffon 12-08-2020 Absolute Baso # 0.0 10*3/uL 0.0 - 0.2 10*3/uL [employer] Work Phone: Absolute Neut # 4.0 10*3/uL 1.8 - 7.0 10*3/uL [facility] Work Phone: Basophils/100 WBC (Bld) 0.5 % 0.0 - 2.0 % [employer] Work Phone: Eosinophils (Bld) [#/Vol] 0.3 10*3/uL 0.0 - 0.5 10*3/uL [facility] Work Phone: Eosinophils/100 WBC (Bld) 5.1 % 1.0 - 6.0 % [facility] Work Phone: Erythrocyte distribution width (RBC) [Ratio] 14.1 % 11.5 - 14.5 % [employer] Work Phone: Granulocytes/100 WBC (Bld) 63.7 % 40.0 - 80.0 % [employer] Work Phone: Hematocrit (Bld) [Volume fraction] 45.2 % 40.0 - 52.0 % [employer] Work Phone: Hemoglobin (Bld) [Mass/Vol] 15.3 g/dL 13.0 - 18.0 g/dL [employer] Work Phone: Lymphocytes (Bld) [#/Vol] 1.3 10*3/uL 1.0 - 4.3 10*3/uL [facility] Work Phone: Lymphocytes/100 WBC (Bld) 21.5 % 20.0 - 40.0 % [employer] Work Phone: MCH (RBC) [Entitic mass] 30.0 pg 26.0 - 34.0 pg [facility] Work Phone: MCHC (RBC) [Mass/Vol] 33.8 % 32.0 - 36.0 % [facility] Work Phone: MCV (RBC) [Entitic vol] 88.8 fL 80.0 - 98.0 fL [facility] Work Phone: Monocytes (Bld) [#/Vol] 0.6 10*3/uL 0.0 - 0.8 10*3/uL [employer] Work Phone: Monocytes/100 WBC (Bld) 9.2 % 2.0 - 10.0 % [employer] Work Phone: Platelet mean volume (Bld) [Entitic vol] 7.6 fL 7.4 - 10.4 fL [employer] Work Phone: Platelets (Bld) [#/Vol] 267 10*3/uL 140 - 440 10*3/uL [employer] Work Phone: RBC (Bld) [#/Vol] 5.09 10*6/uL 4.40 - 5.9 0 10*6/uL [employer] Work Phone: WBC (Bld) [#/Vol] 6.3 10*3/uL 3.6 - 10.7 10*3/uL [employer] Work Phone: Test Performed by [employer], [address] [place] [id number] [employer] Work Phone: CULT/STAIN - AEROBIC AND ARCHANA EROBICon 05-16-2020 CULT/STAIN - AEROBIC AND ANAEROBIC STAIN GRAM --> Status: F Moderate polymorphonuclear cells/lpf. Few gram positive cocci . Few gram positive cocci . CULTURE ANAEROBE --> Status: F No growth of anaerobes at 5 days. 1 Organism Staphylococcus aureus Moderate For identification and/or sensitivity, refer to culture collected on: 05-10-2020 at 23:00 ([id number]). Normal [employer] Comment on above: Performed By: #### B GLU #### [employer] [address] [place] [phone] CULT/STAIN - AEROBIC AND ANAEROBIC STAIN GRAM --> Status: F Many polymorphonuclear cells/lpf. Few gram positive cocci . Few gram positive cocci . CULTURE ANAEROBE --> Status: F No growth of anaerobes at 5 days. 1 Organism Staphylococcus aureus Many 1 Organism Antibiotic Result Intrp Nafcillin/Oxacillin(CA C) <= 0.25 S Inducible Clindamycin Resistant(ALYSIA)Neg Neg Clindamycin(ALYSIA) = 0.25 S Vancomycin(ALYSIA) <= 0.5 S Trimeth/Sulfa(ALYSIA) <= 10 S Linezolid(ALYSIA) = 2 S Daptomycin(ALYSIA) = 1 S Gentamicin(ALYSIA) <= 0.5 S Doxycycline(ALYSIA) <= 0.5 S Tigecycline(ALYSIA) <= 0.12 S Rifampin(ALYSIA) <= 0.5 S Normal [facility] Comment on above: Performed By: #### B GLU #### [address] Basic Metabolic Panelon 08- Calcium [Mass/Vol] 8.5 mg/dL Normal 8.4-10.4 [facility] Comment on above: Performed By: #### H EMDF, BMP3M, HA1C2, CK3, LFT3 #### [facility] [employer] [address] Glucose [Mass/Vol] 135 mg/dL High 70-100 [facility] Comment on above: Performed By: #### H EMDF, BMP3M, HA1C2, CK3, LFT3 #### [facility] [employer] [address] Anion gap [Moles/Vol] 10 Normal [facility] Comment on above: Performed By: #### H EMDF, BMP3M, HA1C2, CK3, LFT3 #### [address] CO2 [Moles/Vol] 23 mmol/L Normal 22-[address] [facility] Comment on above: Performed By: #### H EMDF, BMP3M, HA1C2, CK3, LFT3 #### [address] Creatinine [Mass/Vol] 0.53 mg/dL Normal 0.52-1.25 [facility] Comment on above: Performed By: #### H EMDF, BMP3M, HA1C2, CK3, LFT3 #### [address] GFR/1.73 sq M predicted among blacks MDRD (S/P/Bld) [Vol rate/Area] mL/min/{1.73_m2} Normal >60 [facility] Comment on above: Performed By: #### H EMDF, BMP3M, HA1C2, CK3, LFT3 #### [address] GFR/1.73 sq M predicted among non-blacks MDRD (S/P/Bld) [Vol rate/Area] mL/min/{1.73_m2} Normal >60 [facility] Comment on above: Result Comment: KDIG O guidelines provide the following GFR categories: Stage GFR(ml/min/1.73 m2) Terms G1 >=90 Normal or high G2 60-89 Mildly decreased* G3a 45-59 Mildly to moderately decreased G3b 30-44 Moderately to severely decreased G4 15-29 Severely decreased G5 <15 Kidney failure *Relative to young adult level. In the absence of evidence of kidney damage, neither GFR category G1 nor G2 fulfill the criteria for CKD. The CKD-EPI equation is validated in individuals 18 years of age and older. Currently the best equation for estimating glomerular filtration rate (GFR) from serum creatinine in children is the Bedside Quevedo equation. It is less accurate in patients with extremes of muscle mass, restriction of dietary protein, ingestion of creatine, extra-renal metabolism of creatinine, or treatment with medications that affect renal tubular creatinine secretion. Performed By: #### H EMDF, BMP3M, HA1C2, CK3, LFT3 #### [facility] [address] [place] [address] Urea nitrogen [Mass/Vol] 8 mg/dL Normal 7-20 [facility] Comment on above: Performed By: #### H EMDF, BMP3M, HA1C2, CK3, LFT3 #### [facility] [address] [place] [address] Chloride [Moles/Vol] 98 mmol/L Normal 98-107 [facility] Comment on above: Performed By: #### H EMDF, BMP3M, HA1C2, CK3, LFT3 #### [facility] [address] [place] [address] Potassium [Moles/Vol] 4.2 mmol/L Normal 3.5-5.1 [facility] Comment on above: Performed By: #### H EMDF, BMP3M, HA1C2, CK3, LFT3 #### [facility] [address] [place] [address] Sodium [Moles/Vol] 131 mmol/L Low 135-145 [facility] Comment on above: Performed By: #### H EMDF, BMP3M, HA1C2, CK3, LFT3 #### [facility] [address] [place] [address] Anion gap [Moles/Vol] 10 mmol/L [place], [place] Calcium [Mass/Vol] 8.5 mg/dL 8.4 - 10. 4 mg/dL [place], [place] Chloride [Moles/Vol] 98 mmol/L 98 - 10 7 mmol/L [place] CO2 [Moles/Vol] 23 mmol/L 22 - 30 mmol/L [place] Creatinine [Mass/Vol] 0.53 mg/dL 0.52 - 1.25 mg/dL [place] EGFR IF NonAfrican Albanian >90.0 >60 mL/min [place] Comment on above: KDIGO guidelines pro vide the following GFR categories: Stage GFR(ml/min/1.73 m2) Terms G1 >=90 Normal or high G2 60-89 Mildly decreased* G3a 45-59 Mildly to moderately decreased G3b 30-44 Moderately to severely decreased G4 15-29 Severely decreased G5 <15 Kidney failure *Relative to young adult level. In the absence of evidence of kidney damage, neither GFR category G1 nor G2 fulfill the criteria for CKD. The CKD-EPI equation is validated in individuals 18 years of age and older. Currently the best equation for estimating glomerular filtration rate (GFR) from serum creatinine in children is the Bedside Quevedo equation. It is less accurate in patients with extremes of muscle mass, restriction of dietary protein, ingestion of creatine, extra-renal metabolism of creatinine, or treatment with medications that affect renal tubular creatinine secretion. GFR/1.73 sq M predicted among blacks MDRD (S/P/Bld) [Vol rate/Area] mL/min/{1.73_m2} >60 mL/min [place], [place] Glucose [Mass/Vol] 135 mg/dL High 70 - 100 mg/dL [place] Interpretation and review of laboratory results Abnormal [place] Potassium [Moles/Vol] 4.2 mmol/L 3.5 - 5.1 mmol/L [place] Sodium [Moles/Vol] 131 mmol/L Low 135 - 145 mmol/L [place] Urea nitrogen [Mass/Vol] 8 mg/dL 7 - 20 mg/dL [place] Test Performed by [facility], [address] [place] [id number] [place], [place] Calcium [Mass/Vol] 8.2 mg/dL Low 8.4-10.4 [facility] Comment on above: Performed By: #### H EMDF, BMP3M, HA1C2, CK3, LFT3 #### [facility] [employer] [address] [place] [address] [place] [address] Glucose [Mass/Vol] 84 mg/dL Normal 70-100 [facility] Comment on above: Performed By: #### H EMDF, BMP3M, HA1C2, CK3, LFT3 #### [facility] [address] [address] [place] [address] Urea nitrogen [Mass/Vol] 10 mg/dL Normal 7-20 [facility] Comment on above: Performed By: #### H EMDF, BMP3M, HA1C2, CK3, LFT3 #### [address] Anion gap [Moles/Vol] 7 Normal [facility] Comment on above: Performed By: #### H EMDF, BMP3M, HA1C2, CK3, LFT3 #### [address] CO2 [Moles/Vol] 25 mmol/L Normal 22-30 [facility] Comment on above: Performed By: #### H EMDF, BMP3M, HA1C2, CK3, LFT3 #### [address] Creatinine [Mass/Vol] 0.57 mg/dL Normal 0.52-1.25 [facility] Comment on above: Performed By: #### H EMDF, BMP3M, HA1C2, CK3, LFT3 #### [address] GFR/1.73 sq M predicted among blacks MDRD (S/P/Bld) [Vol rate/Area] mL/min/{1.73_m2} Normal >60 [facility] Comment on above: Performed By: #### H EMDF, BMP3M, HA1C2, CK3, LFT3 #### [address] GFR/1.73 sq M predicted among non-blacks MDRD (S/P/Bld) [Vol rate/Area] mL/min/{1.73_m2} Normal >60 [facility] Comment on above: Result Comment: KDIG O guidelines provide the following GFR categories: Stage GFR(ml/min/1.73 m2) Terms G1 >=90 Normal or high G2 60-89 Mildly decreased* G3a 45-59 Mildly to moderately decreased G3b 30-44 Moderately to severely decreased G4 15-29 Severely decreased G5 <15 Kidney failure *Relative to young adult level. In the absence of evidence of kidney damage, neither GFR category G1 nor G2 fulfill the criteria for CKD. The CKD-EPI equation is validated in individuals 18 years of age and older. Currently the best equation for estimating glomerular filtration rate (GFR) from serum creatinine in children is the Bedside Quevedo equation. It is less accurate in patients with extremes of muscle mass, restriction of dietary protein, ingestion of creatine, extra-renal metabolism of creatinine, or treatment with medications that affect renal tubular creatinine secretion. Performed By: #### H EMDF, BMP3M, HA1C2, CK3, LFT3 #### [address] [place] [address] [place] [address] Potassium [Moles/Vol] 4.0 mmol/L Normal 3.5-5.1 [facility] Comment on above: Performed By: #### H EMDF, BMP3M, HA1C2, CK3, LFT3 #### [address] [place] [address] [place] [address] Chloride [Moles/Vol] 100 mmol/L Normal 98-107 [facility] Comment on above: Performed By: #### H EMDF, BMP3M, HA1C2, CK3, LFT3 #### [place] [address] [place] [address] Sodium [Moles/Vol] 131 mmol/L Low 135-145 [facility] Comment on above: Performed By: #### H EMDF, BMP3M, HA1C2, CK3, LFT3 #### [address] [place] [address] [place] [address] Anion gap [Moles/Vol] 7 mmol/L [place], [place] Calcium [Mass/Vol] 8.2 mg/dL Low 8.4 - 10. 4 mg/dL [place] Chloride [Moles/Vol] 100 mmol/L 98 - 10 7 mmol/L [place] CO2 [Moles/Vol] 25 mmol/L 22 - 30 mmol/L [place] Creatinine [Mass/Vol] 0.57 mg/dL 0.52 - 1.25 mg/dL [place] EGFR IF NonAfrican [place]ian >90.0 >60 mL/min [place] Comment on above: KDIGO guidelines pro vide the following GFR categories: Stage GFR(ml/min/1.73 m2) Terms G1 >=90 Normal or high G2 60-89 Mildly decreased* G3a 45-59 Mildly to moderately decreased G3b 30-44 Moderately to severely decreased G4 15-29 Severely decreased G5 <15 Kidney failure *Relative to young adult level. In the absence of evidence of kidney damage, neither GFR category G1 nor G2 fulfill the criteria for CKD. The CKD-EPI equation is validated in individuals 18 years of age and older. Currently the best equation for estimating glomerular filtration rate (GFR) from serum creatinine in children is the Bedside Quevedo equation. It is less accurate in patients with extremes of muscle mass, restriction of dietary protein, ingestion of creatine, extra-renal metabolism of creatinine, or treatment with medications that affect renal tubular creatinine secretion. GFR/1.73 sq M predicted among blacks MDRD (S/P/Bld) [Vol rate/Area] mL/min/{1.73_m2} >60 mL/min [place] Glucose [Mass/Vol] 84 mg/dL 70 - 100 mg/dL [place] Interpretation and review of laboratory results Abnormal [place] Potassium [Moles/Vol] 4.0 mmol/L 3.5 - 5.1 mmol/L [place] Sodium [Moles/Vol] 131 mmol/L Low 135 - 145 mmol/L [place] Urea nitrogen [Mass/Vol] 10 mg/dL 7 - 20 mg/dL [place] [facility], [address] [place] [address] Glucose,Bedsideon 05-15-2020 Glucose [Mass/Vol] 96 mg/dL Normal 70-100 [facility] Comment on above: Result Comment: Test performed by glucose meter. Results may be 10%-15% lower than serum/plasma values. (CLIA ID [id number]) Performed By: #### H EMDF, BMP3M, HA1C2, CK3, LFT3 #### [facility] [employer] [address] [address] [place] [address] Glucose [Mass/Vol] 135 mg/dL High 70-100 [facility] Comment on above: Result Comment: Test performed by glucose meter. Results may be 10%-15% lower than serum/plasma values. (CLIA ID [id number]) Performed By: #### H EMDF, BMP3M, HA1C2, CK3, LFT3 #### [address] [place] [address] [place] [address] Glucose [Mass/Vol] 79 mg/dL Normal 70-100 [facility] Comment on above: Result Comment: Test performed by glucose meter. Results may be 10%-15% lower than serum/plasma values. (CLIA ID [id number]) Performed By: #### H EMDF, BMP3M, HA1C2, CK3, LFT3 #### [address] [address] [place] [address] POCT Glucoseon 05-15-2020 Glucose [Mass/Vol] 96 mg/dL 70 - 100 mg/dL [place] Comment on above: Test performed by gl ucose meter. Results may be 10%-15% lower than serum/plasma values. (CLIA ID [id number]) Test Performed by [facility], [address] [place] [id number] [place] [address] Glucose [Mass/Vol] 135 mg/dL High 70 - 100 mg/dL [place] Comment on above: Test performed by gl ucose meter. Results may be 10%-15% lower than serum/plasma values. (CLIA ID [id number]) Interpretation and review of laboratory results Abnormal [place], [place] Test Performed by [facility], [address] [place] [id number] [place] [address] Glucose [Mass/Vol] 79 mg/dL 70 - 100 mg/dL [place], [place] Comment on above: Test performed by gl ucose meter. Results may be 10%-15% lower than serum/plasma values. (CLIA ID [id number]) Test Performed by [facility] [employer], [facility] [place], [place] [id number] [place] [address] Basic Metabolic Panelon 05-02 Anion gap [Moles/Vol] 7 Normal [facility] Comment on above: Performed By: #### T SGL #### [place] [address] #### ABID #### [facility] Calcium [Mass/Vol] 8.5 mg/dL Normal 8.4-10.4 [facility] Comment on above: Performed By: #### T SGL #### [facility] [address] [place], [place] [id number] [place] [address] #### ABID #### [facility] CO2 [Moles/Vol] 28 mmol/L Normal 22-[address] [facility] Comment on above: Performed By: #### T SGL #### [place] [address] #### ABID #### [facility] Glucose [Mass/Vol] 102 mg/dL High 70-100 [facility] Comment on above: Performed By: #### T SGL #### [place] [address] #### ABID #### [facility] Urea nitrogen [Mass/Vol] 12 mg/dL Normal 7-20 [facility] Comment on above: Performed By: #### T SGL #### [place] [address] #### ABID #### [facility] Creatinine [Mass/Vol] 0.65 mg/dL Normal 0.52-1.25 [facility] Comment on above: Performed By: #### T SGL #### [place] [address] #### ABID #### [facility] GFR/1.73 sq M predicted among blacks MDRD (S/P/Bld) [Vol rate/Area] mL/min/{1.73_m2} Normal >60 [facility] Comment on above: Performed By: #### T SGL #### [facility] [address] #### ABID #### [facility] GFR/1.73 sq M predicted among non-blacks MDRD (S/P/Bld) [Vol rate/Area] mL/min/{1.73_m2} Normal >60 [facility] Comment on above: Result Comment: KDIG O guidelines provide the following GFR categories: Stage GFR(ml/min/1.73 m2) Terms G1 >=90 Normal or high G2 60-89 Mildly decreased* G3a 45-59 Mildly to moderately decreased G3b 30-44 Moderately to severely decreased G4 15-29 Severely decreased G5 <15 Kidney failure *Relative to young adult level. In the absence of evidence of kidney damage, neither GFR category G1 nor G2 fulfill the criteria for CKD. The CKD-EPI equation is validated in individuals 18 years of age and older. Currently the best equation for estimating glomerular filtration rate (GFR) from serum creatinine in children is the Bedside Quevedo equation. It is less accurate in patients with extremes of muscle mass, restriction of dietary protein, ingestion of creatine, extra-renal metabolism of creatinine, or treatment with medications that affect renal tubular creatinine secretion. Performed By: #### T SGL #### [address] #### ABID #### [facility] Chloride [Moles/Vol] 97 mmol/L Low 98-107 [facility] Comment on above: Performed By: #### T SGL #### [place] [address] [address] [place], [place] [id number] [place] [address] #### ABID #### [facility] Potassium [Moles/Vol] 4.2 mmol/L Normal 3.5-5.1 [facility] Comment on above: Performed By: #### T SGL #### [place] [address] [address] [place], [place] [id number] [place] [address] #### ABID #### [facility] Sodium [Moles/Vol] 132 mmol/L Low 135-145 [facility] Comment on above: Performed By: #### T SGL #### [place] [address] [address] [place], [place] [address] [place] [address] #### ABID #### [facility] Anion gap [Moles/Vol] 7 mmol/L [place], [place] Calcium [Mass/Vol] 8.5 mg/dL 8.4 - 10. 4 mg/dL [place], [place] Chloride [Moles/Vol] 97 mmol/L Low 98 - 10 7 mmol/L [place] CO2 [Moles/Vol] 28 mmol/L 22 - 30 mmol/L [place] Creatinine [Mass/Vol] 0.65 mg/dL 0.52 - 1.25 mg/dL [place] EGFR IF NonAfrican [place]ian >90.0 >60 mL/min [place], [place] Comment on above: KDIGO guidelines pro vide the following GFR categories: Stage GFR(ml/min/1.73 m2) Terms G1 >=90 Normal or high G2 60-89 Mildly decreased* G3a 45-59 Mildly to moderately decreased G3b 30-44 Moderately to severely decreased G4 15-29 Severely decreased G5 <15 Kidney failure *Relative to young adult level. In the absence of evidence of kidney damage, neither GFR category G1 nor G2 fulfill the criteria for CKD. The CKD-EPI equation is validated in individuals 18 years of age and older. Currently the best equation for estimating glomerular filtration rate (GFR) from serum creatinine in children is the Bedside Quevedo equation. It is less accurate in patients with extremes of muscle mass, restriction of dietary protein, ingestion of creatine, extra-renal metabolism of creatinine, or treatment with medications that affect renal tubular creatinine secretion. GFR/1.73 sq M predicted among blacks MDRD (S/P/Bld) [Vol rate/Area] mL/min/{1.73_m2} >60 mL/min [place] Glucose [Mass/Vol] 102 mg/dL High 70 - 100 mg/dL [place] Interpretation and review of laboratory results Abnormal [place] Potassium [Moles/Vol] 4.2 mmol/L 3.5 - 5.1 mmol/L [place] Sodium [Moles/Vol] 132 mmol/L Low 135 - 145 mmol/L [place] Urea nitrogen [Mass/Vol] 12 mg/dL 7 - 20 mg/dL [place] Test Performed by [facility], [address] [place] [address] [place], [place] Calcium [Mass/Vol] 8.3 mg/dL Low 8.4-10.4 [facility] Comment on above: Performed By: #### T SGL #### [place] [address] #### ABID #### [facility] Glucose [Mass/Vol] 97 mg/dL Normal 70-100 [facility] Comment on above: Performed By: #### T SGL #### [place] [address] #### ABID #### [facility] Anion gap [Moles/Vol] 7 Normal [facility] Comment on above: Performed By: #### T SGL #### [place] [address] #### ABID #### [facility] CO2 [Moles/Vol] 26 mmol/L Normal 22-[address] [facility] Comment on above: Performed By: #### T SGL #### [place] [address] #### ABID #### [facility] Creatinine [Mass/Vol] 0.65 mg/dL Normal 0.52-1.25 [facility] Comment on above: Performed By: #### T SGL #### [facility] [address] #### ABID #### [facility] GFR/1.73 sq M predicted among blacks MDRD (S/P/Bld) [Vol rate/Area] mL/min/{1.73_m2} Normal >60 [facility] Comment on above: Performed By: #### T SGL #### [place] [address] #### ABID #### [facility] GFR/1.73 sq M predicted among non-blacks MDRD (S/P/Bld) [Vol rate/Area] mL/min/{1.73_m2} Normal >60 [facility] Comment on above: Result Comment: KDIG O guidelines provide the following GFR categories: Stage GFR(ml/min/1.73 m2) Terms G1 >=90 Normal or high G2 60-89 Mildly decreased* G3a 45-59 Mildly to moderately decreased G3b 30-44 Moderately to severely decreased G4 15-29 Severely decreased G5 <15 Kidney failure *Relative to young adult level. In the absence of evidence of kidney damage, neither GFR category G1 nor G2 fulfill the criteria for CKD. The CKD-EPI equation is validated in individuals 18 years of age and older. Currently the best equation for estimating glomerular filtration rate (GFR) from serum creatinine in children is the Bedside Quevedo equation. It is less accurate in patients with extremes of muscle mass, restriction of dietary protein, ingestion of creatine, extra-renal metabolism of creatinine, or treatment with medications that affect renal tubular creatinine secretion. Performed By: #### T SGL #### [place] [address] #### ABID #### [facility] Urea nitrogen [Mass/Vol] 14 mg/dL Normal 7-20 [facility] Comment on above: Performed By: #### T SGL #### [place] [address] #### ABID #### [facility] Chloride [Moles/Vol] 98 mmol/L Normal 98-107 [facility] Comment on above: Performed By: #### T SGL #### [place] [address] #### ABID #### [facility] Potassium [Moles/Vol] 3.9 mmol/L Normal 3.5-5.1 [facility] Comment on above: Performed By: #### T SGL #### [place] [address] #### ABID #### [facility] Sodium [Moles/Vol] 130 mmol/L Low 135-145 [facility] Comment on above: Performed By: #### T SGL #### [place] [address] #### ABID #### [facility] Anion gap [Moles/Vol] 7 mmol/L [place], [place] Calcium [Mass/Vol] 8.3 mg/dL Low 8.4 - 10. 4 mg/dL [place] Chloride [Moles/Vol] 98 mmol/L 98 - 10 7 mmol/L [place] CO2 [Moles/Vol] 26 mmol/L 22 - 30 mmol/L [place] Creatinine [Mass/Vol] 0.65 mg/dL 0.52 - 1.25 mg/dL [place] EGFR IF NonAfrican Albanian >90.0 >60 mL/min [place], [place] Comment on above: KDIGO guidelines pro vide the following GFR categories: Stage GFR(ml/min/1.73 m2) Terms G1 >=90 Normal or high G2 60-89 Mildly decreased* G3a 45-59 Mildly to moderately decreased G3b 30-44 Moderately to severely decreased G4 15-29 Severely decreased G5 <15 Kidney failure *Relative to young adult level. In the absence of evidence of kidney damage, neither GFR category G1 nor G2 fulfill the criteria for CKD. The CKD-EPI equation is validated in individuals 18 years of age and older. Currently the best equation for estimating glomerular filtration rate (GFR) from serum creatinine in children is the Bedside Quevedo equation. It is less accurate in patients with extremes of muscle mass, restriction of dietary protein, ingestion of creatine, extra-renal metabolism of creatinine, or treatment with medications that affect renal tubular creatinine secretion. GFR/1.73 sq M predicted among blacks MDRD (S/P/Bld) [Vol rate/Area] mL/min/{1.73_m2} >60 mL/min [place] Glucose [Mass/Vol] 97 mg/dL 70 - 100 mg/dL [place] Interpretation and review of laboratory results Abnormal [place] Potassium [Moles/Vol] 3.9 mmol/L 3.5 - 5.1 mmol/L [place] Sodium [Moles/Vol] 130 mmol/L Low 135 - 145 mmol/L [place] Urea nitrogen [Mass/Vol] 14 mg/dL 7 - 20 mg/dL [place] Test Performed by [facility], [address] [place] [address] [place], [place] COVID-19on 05-14-2020 SARS-CoV-2 Not Detected Expected Result: Not Detected _ Real-time, RT-PCR performed on the [employer] System by the [facility] Service. Negative results do not preclude SARS-CoV-2 infection and should not be used as the sole basis for treatment or other patient management decisions. This assay was developed by [employer] and distributed under an Emergency Use Authorization (EUA) granted by the FDA for the qualitative detection of SARS-CoV-2 nucleic acid. Results were determined from a pool consisting of specimens from additional patients. This test was modified, and its performance characteristics, showing minimal loss of sensitivity, have been validated by the [facility]biology Service. Approval is pending review by the U. S. Food and Drug Administration. If symptoms are severe and persist, testing a new specimen may be warranted. Additionally, IgG testing may be considered for patients more than 7-10 days post onset of symptoms. [place], [place] Test Performed by [facility], [address] [place] [address] Specimen Source Comment:Nasopharyngeal Swab [place], [place] CR Chest Portableon 05-14-20 20 CR Chest Portable Patient Name: ALEX JEFFERSON Diagnostic Radiology Exam Date/Time 05/14/2020 13:59:07 EDT Exam CR Chest Portable Ordering Physician KIM SCHILLING Accession Number [id number] CPT4 Codes 90118 () Reason For Exam line placement Report CHEST CLINICAL INDICATION: Line placement TECHNIQUE: AP COMPARISON: Chest radiograph 05/10/2020 FINDINGS: The heart and mediastinum are normal. Interval placement of a left upper extremity PICC line with the distal tip overlying the atriocaval junction. The lungs are clear. Costophrenic angles are sharp. The osseous structures are unremarkable. IMPRESSION: 1. Interval placement of a left upper [place] PICC line with the distal tip overlying the trochanteric junction. 2. No acute pulmonary process. Report Dictated on Final Dictated: 05/14/2020 1:53 pm Dictating Physician: DO BLAIR RACHEL Signed Date and Time: 05/14/2020 1:55 pm Signed by: DO BLAIR RACHEL Transcribed Date and Time: 05/14/2020 1:53 Normal [facility] Glucose,Bedsideon 05-14-2020 Glucose [Mass/Vol] 103 mg/dL High 70-100 [facility] Comment on above: Result Comment: Test performed by glucose meter. Results may be 10%-15% lower than serum/plasma values. (CLIA ID [id number]) Performed By: #### H EMDF, BMP3M, HA1C2, CK3, LFT3 #### [facility] [place] [address] [place] [address] Glucose [Mass/Vol] 113 mg/dL High 70-100 [facility] Comment on above: Result Comment: Test performed by glucose meter. Results may be 10%-15% lower than serum/plasma values. (CLIA ID [id number]) Performed By: #### T SGL #### [facility] [address] #### ABID #### [facility] Glucose [Mass/Vol] 83 mg/dL Normal 70-100 [facility] Comment on above: Result Comment: Test performed by glucose meter. Results may be 10%-15% lower than serum/plasma values. (CLIA ID [id number]) Performed By: #### T SGL #### [facility] [place] [address] #### ABID #### [facility] Glucose [Mass/Vol] 92 mg/dL Normal 70-100 [facility] Comment on above: Result Comment: Test performed by glucose meter. Results may be 10%-15% lower than serum/plasma values. (CLIA ID [id number]) Performed By: #### T SGL #### [facility] [address] #### ABID #### [facility] POCT Glucoseon 05-14-2020 Glucose [Mass/Vol] 103 mg/dL High 70 - 100 mg/dL [place], [place] Comment on above: Test performed by gl ucose meter. Results may be 10%-15% lower than serum/plasma values. (CLIA ID [id number]) Interpretation and review of laboratory results Abnormal [place], [place] Test Performed by [facility], [facility] [place] [address] [place] Glucose [Mass/Vol] 113 mg/dL High 70 - 100 mg/dL [place], [place] Comment on above: Test performed by gl ucose meter. Results may be 10%-15% lower than serum/plasma values. (CLIA ID [id number]) Interpretation and review of laboratory results Abnormal [place] Test Performed by [facility], [facility] [place] [address] [place] Glucose [Mass/Vol] 83 mg/dL 70 - 100 mg/dL [place] Comment on above: Test performed by gl ucose meter. Results may be 10%-15% lower than serum/plasma values. (CLIA ID [id number]) Test Performed by [facility], [address] [place] [address] [place] Glucose [Mass/Vol] 92 mg/dL 70 - 100 mg/dL [place] Comment on above: Test performed by gl ucose meter. Results may be 10%-15% lower than serum/plasma values. (CLIA ID [id number]) Test Performed by [facility], [facility] [place] [address] [place] [id number] 05-14-2020 SARS-CoV-2 SARS-CoV-2 --> Statu s: F Not Detected Expected Result: Not Detected _ Real-time, RT-PCR performed on the [employer] System by the [facility]. Negative results do not preclude SARS-CoV-2 infection and should not be used as the sole basis for treatment or other patient management decisions. This assay was developed by [employer] and distributed under an Emergency Use Authorization (EUA) granted by the FDA for the qualitative detection of SARS-CoV-2 nucleic acid. Results were determined from a pool consisting of specimens from additional patients. This test was modified, and its performance characteristics, showing minimal loss of sensitivity, have been validated by the [facility]biology Service. Approval is pending review by the U. S. Food and Drug Administration. If symptoms are severe and persist, testing a new specimen may be warranted. Additionally, IgG testing may be considered for patients more than 7-10 days post onset of symptoms. Expected Result: Not Detected _ Real-time, RT-PCR performed on the [employer] System by the [facility]. Negative results do not preclude SARS-CoV-2 infection and should not be used as the sole basis for treatment or other patient management decisions. This assay was developed by [employer] and distributed under an Emergency Use Authorization (EUA) granted by the FDA for the qualitative detection of SARS-CoV-2 nucleic acid. Results were determined from a pool consisting of specimens from additional patients. This test was modified, and its performance characteristics, showing minimal loss of sensitivity, have been validated by the [facility]. Approval is pending review by the U. S. Food and Drug Administration. If symptoms are severe and persist, testing a new specimen may be warranted. Additionally, IgG testing may be considered for patients more than 7-10 days post onset of symptoms. Normal [facility] Comment on above: Order Comment: Speci men Source Comment:Nasopharyngeal Swab Performed By: #### T SGL #### [facility] [address] [place] [address] [facility] #### ABID #### [facility] XR CHEST PORTABLEon 05-14-20 [facility], [facility] Incoming Radiology Results From [facility] - 05/14/2020 1:59 PM EDT Patient Name: ALEX JEFFERSON ---Diagnostic Radiology--- Exam Date/Time 05/14/2020 13:59:07 EDT Exam CR Chest Portable Ordering Physician KIM SCHILLING Accession Number [id number] CPT4 Codes 58833 () Reason For Exam line placement Report CHEST CLINICAL INDICATION: Line placement TECHNIQUE: AP COMPARISON: Chest radiograph 05/10/2020 FINDINGS: The heart and mediastinum are normal. Interval placement of a left upper extremity PICC line with the distal tip overlying the atriocaval junction. The lungs are clear. Costophrenic angles are sharp. The osseous structures are unremarkable. IMPRESSION: 1. Interval placement of a left upper [place] PICC line with the distal tip overlying the trochanteric junction. 2. No acute pulmonary process. Report Dictated on --- Final --- Dictated: 05/14/2020 1:53 pm Dictating Physician: DO BLAIR RACHEL Signed Date and Time: 05/14/2020 1:55 pm Signed by: DO BLAIR RACHEL Transcribed Date and Time: 05/14/2020 1:53 [place], [place] Patient Name: ALEX JEFFERSON ---Diagnostic Radiology--- Exam Date/Time 05/14/2020 13:59:07 EDT Exam CR Chest Portable Ordering Physician KIM SCHILLING Accession Number [id number] CPT4 Codes 82289 () Reason For Exam line placement Report CHEST CLINICAL INDICATION: Line placement TECHNIQUE: AP COMPARISON: Chest radiograph 05/10/2020 FINDINGS: The heart and mediastinum are normal. Interval placement of a left upper extremity PICC line with the distal tip overlying the atriocaval junction. The lungs are clear. Costophrenic angles are sharp. The osseous structures are unremarkable. IMPRESSION: 1. Interval placement of a left upper [place] PICC line with the distal tip overlying the trochanteric junction. 2. No acute pulmonary process. Report Dictated on --- Final --- Dictated: 05/14/2020 1:53 pm Dictating Physician: DO BLAIR RACHEL Signed Date and Time: 05/14/2020 1:55 pm Signed by: DO BLAIR RACHEL Transcribed Date and Time: 05/14/2020 1:53 [place], [place] Basic Metabolic Panelon 05-02 Calcium [Mass/Vol] 8.7 mg/dL Normal 8.4-10.4 [facility] Comment on above: Performed By: #### T SGL #### [place] [address] [address] #### ABID #### [facility] Glucose [Mass/Vol] 132 mg/dL High 70-100 [facility] Comment on above: Performed By: #### T SGL #### [facility] [address] [place], [place] [address] [place] [address] #### ABID #### [facility] Anion gap [Moles/Vol] 8 Normal [facility] Comment on above: Performed By: #### T SGL #### [facility] [address] [place], [place] [address] [place] [address] #### ABID #### [facility] CO2 [Moles/Vol] 30 mmol/L Normal 22-[address] [facility] Comment on above: Performed By: #### T SGL #### [facility] [address] [place], [place] [id number] [place] [address] #### ABID #### [facility] Creatinine [Mass/Vol] 0.70 mg/dL Normal 0.52-1.25 [facility] Comment on above: Performed By: #### T SGL #### [facility] [address] [place], [place] [address] [place] [address] #### ABID #### [facility] GFR/1.73 sq M predicted among blacks MDRD (S/P/Bld) [Vol rate/Area] mL/min/{1.73_m2} Normal >60 [facility] Comment on above: Performed By: #### T SGL #### [facility] [address] #### ABID #### [facility] GFR/1.73 sq M predicted among non-blacks MDRD (S/P/Bld) [Vol rate/Area] mL/min/{1.73_m2} Normal >60 [facility] Comment on above: Result Comment: KDIG O guidelines provide the following GFR categories: Stage GFR(ml/min/1.73 m2) Terms G1 >=90 Normal or high G2 60-89 Mildly decreased* G3a 45-59 Mildly to moderately decreased G3b 30-44 Moderately to severely decreased G4 15-29 Severely decreased G5 <15 Kidney failure *Relative to young adult level. In the absence of evidence of kidney damage, neither GFR category G1 nor G2 fulfill the criteria for CKD. The CKD-EPI equation is validated in individuals 18 years of age and older. Currently the best equation for estimating glomerular filtration rate (GFR) from serum creatinine in children is the Bedside Quevedo equation. It is less accurate in patients with extremes of muscle mass, restriction of dietary protein, ingestion of creatine, extra-renal metabolism of creatinine, or treatment with medications that affect renal tubular creatinine secretion. Performed By: #### T SGL #### [place] [address] [address] #### ABID #### [facility] Urea nitrogen [Mass/Vol] 16 mg/dL Normal 7-20 [facility] Comment on above: Performed By: #### T SGL #### [place] [address] [address] #### ABID #### [facility] [facility] Chloride [Moles/Vol] 94 mmol/L Low 98-107 [facility] Comment on above: Performed By: #### T SGL #### [place] [address] #### ABID #### [facility] Potassium [Moles/Vol] 4.1 mmol/L Normal 3.5-5.1 [facility] Comment on above: Performed By: #### T SGL #### [place] [address] #### ABID #### [facility] Sodium [Moles/Vol] 132 mmol/L Low 135-145 [facility] Comment on above: Performed By: #### T SGL #### [place] [address] #### ABID #### [facility] Anion gap [Moles/Vol] 8 mmol/L [place], [place] Calcium [Mass/Vol] 8.7 mg/dL 8.4 - 10. 4 mg/dL [place], [place] Chloride [Moles/Vol] 94 mmol/L Low 98 - 10 7 mmol/L [place] CO2 [Moles/Vol] 30 mmol/L 22 - 30 mmol/L [place] Creatinine [Mass/Vol] 0.7 mg/dL 0.52 - 1.25 mg/dL [place] EGFR IF NonAfrican Albanian >90.0 >60 mL/min [place] Comment on above: KDIGO guidelines pro vide the following GFR categories: Stage GFR(ml/min/1.73 m2) Terms G1 >=90 Normal or high G2 60-89 Mildly decreased* G3a 45-59 Mildly to moderately decreased G3b 30-44 Moderately to severely decreased G4 15-29 Severely decreased G5 <15 Kidney failure *Relative to young adult level. In the absence of evidence of kidney damage, neither GFR category G1 nor G2 fulfill the criteria for CKD. The CKD-EPI equation is validated in individuals 18 years of age and older. Currently the best equation for estimating glomerular filtration rate (GFR) from serum creatinine in children is the Bedside Quevedo equation. It is less accurate in patients with extremes of muscle mass, restriction of dietary protein, ingestion of creatine, extra-renal metabolism of creatinine, or treatment with medications that affect renal tubular creatinine secretion. GFR/1.73 sq M predicted among blacks MDRD (S/P/Bld) [Vol rate/Area] mL/min/{1.73_m2} >60 mL/min [place] Glucose [Mass/Vol] 132 mg/dL High 70 - 100 mg/dL [place] Interpretation and review of laboratory results Abnormal [place] Potassium [Moles/Vol] 4.1 mmol/L 3.5 - 5.1 mmol/L [place] Sodium [Moles/Vol] 132 mmol/L Low 135 - 145 mmol/L [place] Urea nitrogen [Mass/Vol] 16 mg/dL 7 - 20 mg/dL [place] Test Performed by [facility], [address] [place] [id number] [place] [address] Anion gap [Moles/Vol] 9 Normal [facility] Comment on above: Performed By: #### T SGL #### [id number] [place] [address] #### ABID #### [facility] Calcium [Mass/Vol] 8.5 mg/dL Normal 8.4-10.4 [facility] Comment on above: Performed By: #### T SGL #### [facility] [address] [place], [place] [id number] [place] [address] #### ABID #### [facility] CO2 [Moles/Vol] 30 mmol/L Normal 22-[address] [facility] Comment on above: Performed By: #### T SGL #### [place] [address] [address] #### ABID #### [facility] Glucose [Mass/Vol] 115 mg/dL High 70-100 [facility] Comment on above: Performed By: #### T SGL #### [place] [address] #### ABID #### [facility] Urea nitrogen [Mass/Vol] 17 mg/dL Normal 7-20 [facility] Comment on above: Performed By: #### T SGL #### [place] [address] #### ABID #### [facility] Creatinine [Mass/Vol] 0.65 mg/dL Normal 0.52-1.25 [facility] Comment on above: Performed By: #### T SGL #### [place] [address] #### ABID #### [facility] GFR/1.73 sq M predicted among blacks MDRD (S/P/Bld) [Vol rate/Area] mL/min/{1.73_m2} Normal >60 [facility] Comment on above: Performed By: #### T SGL #### [facility] [address] #### ABID #### [facility] GFR/1.73 sq M predicted among non-blacks MDRD (S/P/Bld) [Vol rate/Area] mL/min/{1.73_m2} Normal >60 [facility] Comment on above: Result Comment: KDIG O guidelines provide the following GFR categories: Stage GFR(ml/min/1.73 m2) Terms G1 >=90 Normal or high G2 60-89 Mildly decreased* G3a 45-59 Mildly to moderately decreased G3b 30-44 Moderately to severely decreased G4 15-29 Severely decreased G5 <15 Kidney failure *Relative to young adult level. In the absence of evidence of kidney damage, neither GFR category G1 nor G2 fulfill the criteria for CKD. The CKD-EPI equation is validated in individuals 18 years of age and older. Currently the best equation for estimating glomerular filtration rate (GFR) from serum creatinine in children is the Bedside Quevedo equation. It is less accurate in patients with extremes of muscle mass, restriction of dietary protein, ingestion of creatine, extra-renal metabolism of creatinine, or treatment with medications that affect renal tubular creatinine secretion. Performed By: #### T SGL #### [address] #### ABID #### [facility] Chloride [Moles/Vol] 93 mmol/L Low 98-107 [facility] Comment on above: Performed By: #### T SGL #### [place] [address] #### ABID #### [facility] Potassium [Moles/Vol] 3.9 mmol/L Normal 3.5-5.1 [facility] Comment on above: Performed By: #### T SGL #### [address] #### ABID #### [facility] Sodium [Moles/Vol] 132 mmol/L Low 135-145 [facility] Comment on above: Performed By: #### T SGL #### [address] #### ABID #### [facility] Glucose,Bedsideon 05-13-2020 Glucose [Mass/Vol] 95 mg/dL Normal 70-100 [facility] Comment on above: Result Comment: Test performed by glucose meter. Results may be 10%-15% lower than serum/plasma values. (CLIA ID [id number]) Performed By: #### T SGL #### [facility] [address] [place], [place] [id number] [place] [address] #### ABID #### [facility] Glucose [Mass/Vol] 92 mg/dL Normal 70-100 [facility] Comment on above: Result Comment: Test performed by glucose meter. Results may be 10%-15% lower than serum/plasma values. (CLIA ID [id number]) Performed By: #### T SGL #### [facility] [address] [place], [place] [id number] [place] [address] #### ABID #### [facility] Glucose [Mass/Vol] 101 mg/dL High 70-100 [facility] Comment on above: Result Comment: Test performed by glucose meter. Results may be 10%-15% lower than serum/plasma values. (CLIA ID [id number]) Performed By: #### T SGL #### [facility] [address] [place], [place] [id number] [place] [address] System #### ABID #### [facility] Glucose [Mass/Vol] 126 mg/dL High 70-100 [facility] Comment on above: Result Comment: Test performed by glucose meter. Results may be 10%-15% lower than serum/plasma values. (CLIA ID [id number]) Performed By: #### T SGL #### [facility] [address] #### ABID #### [facility] POCT Glucoseon 05-13-2020 Glucose [Mass/Vol] 95 mg/dL 70 - 100 mg/dL [place] Comment on above: Test performed by gl ucose meter. Results may be 10%-15% lower than serum/plasma values. (CLIA ID [id number]) Test Performed by [employer], [address] [place], [place] [id number] [place] [address] Glucose [Mass/Vol] 92 mg/dL 70 - 100 mg/dL [place] Comment on above: Test performed by gl ucose meter. Results may be 10%-15% lower than serum/plasma values. (CLIA ID [id number]) Test Performed by [facility] [facility] [place] [address] [place], [place] Glucose [Mass/Vol] 101 mg/dL High 70 - 100 mg/dL [place] Comment on above: Test performed by gl ucose meter. Results may be 10%-15% lower than serum/plasma values. (CLIA ID [id number]) Interpretation and review of laboratory results Abnormal [place] Test Performed by [employer] [facility] [place] [address] [place] Glucose [Mass/Vol] 126 mg/dL High 70 - 100 mg/dL [place] Comment on above: Test performed by gl ucose meter. Results may be 10%-15% lower than serum/plasma values. (CLIA ID [id number]) Interpretation and review of laboratory results Abnormal [place] Test Performed by [employer] [facility] [place] [address] [place] Basic Metabolic Panelon 05-02 Anion gap [Moles/Vol] 9 mmol/L [place], [place] Calcium [Mass/Vol] 8.5 mg/dL 8.4 - 10. 4 mg/dL [place] Chloride [Moles/Vol] 93 mmol/L Low 98 - 10 7 mmol/L [place] CO2 [Moles/Vol] 30 mmol/L 22 - 30 mmol/L [place] Creatinine [Mass/Vol] 0.65 mg/dL 0.52 - 1.25 mg/dL [place] EGFR IF NonAfrican [place]ian >90.0 >60 mL/min [place] Comment on above: KDIGO guidelines pro vide the following GFR categories: Stage GFR(ml/min/1.73 m2) Terms G1 >=90 Normal or high G2 60-89 Mildly decreased* G3a 45-59 Mildly to moderately decreased G3b 30-44 Moderately to severely decreased G4 15-29 Severely decreased G5 <15 Kidney failure *Relative to young adult level. In the absence of evidence of kidney damage, neither GFR category G1 nor G2 fulfill the criteria for CKD. The CKD-EPI equation is validated in individuals 18 years of age and older. Currently the best equation for estimating glomerular filtration rate (GFR) from serum creatinine in children is the Bedside Quevedo equation. It is less accurate in patients with extremes of muscle mass, restriction of dietary protein, ingestion of creatine, extra-renal metabolism of creatinine, or treatment with medications that affect renal tubular creatinine secretion. GFR/1.73 sq M predicted among blacks MDRD (S/P/Bld) [Vol rate/Area] mL/min/{1.73_m2} >60 mL/min [place] Glucose [Mass/Vol] 115 mg/dL High 70 - 100 mg/dL [place] Interpretation and review of laboratory results Abnormal [place] Potassium [Moles/Vol] 3.9 mmol/L 3.5 - 5.1 mmol/L [place] Sodium [Moles/Vol] 132 mmol/L Low 135 - 145 mmol/L [place] Urea nitrogen [Mass/Vol] 17 mg/dL 7 - 20 mg/dL [place] Test Performed by [address] Anion gap [Moles/Vol] 7 Normal [facility] Comment on above: Performed By: #### T SGL #### [place] [address] [address] [place], [place] [id number] [place] [address] #### ABID #### [facility] Calcium [Mass/Vol] 8.8 mg/dL Normal 8.4-10.4 [facility] Comment on above: Performed By: #### T SGL #### [address] [place], [place] [id number] [place] [address] #### ABID #### [facility] CO2 [Moles/Vol] 31 mmol/L High 22-30 [facility] Comment on above: Performed By: #### T SGL #### [address] [place] [address] [facility] #### ABID #### [facility] Glucose [Mass/Vol] 203 mg/dL High 70-100 [facility] Comment on above: Performed By: #### T SGL #### [facility] [address] [place] [address] [facility] #### ABID #### [facility] Urea nitrogen [Mass/Vol] 19 mg/dL Normal 7-20 [facility] Comment on above: Performed By: #### T SGL #### [facility] [address] [place] [address] [facility] #### ABID #### [facility] Creatinine [Mass/Vol] 0.64 mg/dL Normal 0.52-1.25 [facility] Comment on above: Performed By: #### T SGL #### [facility] [address] [place] [address] [facility] #### ABID #### [facility] GFR/1.73 sq M predicted among blacks MDRD (S/P/Bld) [Vol rate/Area] mL/min/{1.73_m2} Normal >60 [facility] Comment on above: Performed By: #### T SGL #### [facility] [address] [place], [place] [id number] [place] [address] #### ABID #### [facility] GFR/1.73 sq M predicted among non-blacks MDRD (S/P/Bld) [Vol rate/Area] mL/min/{1.73_m2} Normal >60 [facility] Comment on above: Result Comment: KDIG O guidelines provide the following GFR categories: Stage GFR(ml/min/1.73 m2) Terms G1 >=90 Normal or high G2 60-89 Mildly decreased* G3a 45-59 Mildly to moderately decreased G3b 30-44 Moderately to severely decreased G4 15-29 Severely decreased G5 <15 Kidney failure *Relative to young adult level. In the absence of evidence of kidney damage, neither GFR category G1 nor G2 fulfill the criteria for CKD. The CKD-EPI equation is validated in individuals 18 years of age and older. Currently the best equation for estimating glomerular filtration rate (GFR) from serum creatinine in children is the Bedside Quevedo equation. It is less accurate in patients with extremes of muscle mass, restriction of dietary protein, ingestion of creatine, extra-renal metabolism of creatinine, or treatment with medications that affect renal tubular creatinine secretion. Performed By: #### T SGL #### [place] [address] [address] #### ABID #### [facility] Potassium [Moles/Vol] 4.2 mmol/L Normal 3.5-5.1 [facility] Comment on above: Performed By: #### T SGL #### [place] [address] [address] #### ABID #### [facility] Chloride [Moles/Vol] 92 mmol/L Low 98-107 [facility] Comment on above: Performed By: #### T SGL #### [place] [address] [address] #### ABID #### [facility] Sodium [Moles/Vol] 130 mmol/L Low 135-145 [facility] Comment on above: Performed By: #### T SGL #### [place] [address] [address] #### ABID #### [facility] Anion gap [Moles/Vol] 7 mmol/L [place] Calcium [Mass/Vol] 8.8 mg/dL 8.4 - 10. 4 mg/dL [place] Chloride [Moles/Vol] 92 mmol/L Low 98 - 10 7 mmol/L [place] CO2 [Moles/Vol] 31 mmol/L High 22 - 30 mmol/L [place] Creatinine [Mass/Vol] 0.64 mg/dL 0.52 - 1.25 mg/dL [place] EGFR IF NonAfrican [place]ian >90.0 >60 mL/min [place] Comment on above: KDIGO guidelines pro vide the following GFR categories: Stage GFR(ml/min/1.73 m2) Terms G1 >=90 Normal or high G2 60-89 Mildly decreased* G3a 45-59 Mildly to moderately decreased G3b 30-44 Moderately to severely decreased G4 15-29 Severely decreased G5 <15 Kidney failure *Relative to young adult level. In the absence of evidence of kidney damage, neither GFR category G1 nor G2 fulfill the criteria for CKD. The CKD-EPI equation is validated in individuals 18 years of age and older. Currently the best equation for estimating glomerular filtration rate (GFR) from serum creatinine in children is the Bedside Quevedo equation. It is less accurate in patients with extremes of muscle mass, restriction of dietary protein, ingestion of creatine, extra-renal metabolism of creatinine, or treatment with medications that affect renal tubular creatinine secretion. GFR/1.73 sq M predicted among blacks MDRD (S/P/Bld) [Vol rate/Area] mL/min/{1.73_m2} >60 mL/min [place] Glucose [Mass/Vol] 203 mg/dL High 70 - 100 mg/dL [place] Interpretation and review of laboratory results Abnormal [place] Potassium [Moles/Vol] 4.2 mmol/L 3.5 - 5.1 mmol/L [place] Sodium [Moles/Vol] 130 mmol/L Low 135 - 145 mmol/L [place] Urea nitrogen [Mass/Vol] 19 mg/dL 7 - 20 mg/dL [place] Test Performed by [address] [address] [place] Calcium [Mass/Vol] 8.6 mg/dL Normal 8.4-10.4 [facility] Comment on above: Performed By: #### B GLU #### [address] Anion gap [Moles/Vol] 10 Normal [facility] Comment on above: Performed By: #### B GLU #### [address] CO2 [Moles/Vol] 27 mmol/L Normal 22-30 [facility] Comment on above: Performed By: #### B GLU #### [address] [place] [address] Creatinine [Mass/Vol] 0.63 mg/dL Normal 0.52-1.25 [facility] Comment on above: Performed By: #### B GLU #### [facility] [address] [place] [address] GFR/1.73 sq M predicted among blacks MDRD (S/P/Bld) [Vol rate/Area] mL/min/{1.73_m2} Normal >60 [facility] Comment on above: Performed By: #### B GLU #### [facility] [address] [place] [address] GFR/1.73 sq M predicted among non-blacks MDRD (S/P/Bld) [Vol rate/Area] mL/min/{1.73_m2} Normal >60 [facility] Comment on above: Result Comment: KDIG O guidelines provide the following GFR categories: Stage GFR(ml/min/1.73 m2) Terms G1 >=90 Normal or high G2 60-89 Mildly decreased* G3a 45-59 Mildly to moderately decreased G3b 30-44 Moderately to severely decreased G4 15-29 Severely decreased G5 <15 Kidney failure *Relative to young adult level. In the absence of evidence of kidney damage, neither GFR category G1 nor G2 fulfill the criteria for CKD. The CKD-EPI equation is validated in individuals 18 years of age and older. Currently the best equation for estimating glomerular filtration rate (GFR) from serum creatinine in children is the Bedside Quevedo equation. It is less accurate in patients with extremes of muscle mass, restriction of dietary protein, ingestion of creatine, extra-renal metabolism of creatinine, or treatment with medications that affect renal tubular creatinine secretion. Performed By: #### B GLU #### [facility] [address] [place] [address] Glucose [Mass/Vol] 253 mg/dL High 70-100 [facility] Comment on above: Performed By: #### B GLU #### [place] [address] [place] [address] Urea nitrogen [Mass/Vol] 20 mg/dL Normal 7-20 [facility] Comment on above: Performed By: #### B GLU #### [place] [address] [address] [place] Chloride [Moles/Vol] 92 mmol/L Low 98-107 [facility] Comment on above: Performed By: #### B GLU #### [facility] [address] [place], [place] Potassium [Moles/Vol] 4.4 mmol/L Normal 3.5-5.1 [facility] Comment on above: Performed By: #### B GLU #### [facility] [address] [place], [place] Sodium [Moles/Vol] 129 mmol/L Low 135-145 [facility] Comment on above: Performed By: #### B GLU #### [facility] [address] [place], [place] Anion gap [Moles/Vol] 10 mmol/L [place] Calcium [Mass/Vol] 8.6 mg/dL 8.4 - 10. 4 mg/dL [place] Chloride [Moles/Vol] 92 mmol/L Low 98 - 10 7 mmol/L [place] CO2 [Moles/Vol] 27 mmol/L 22 - 30 mmol/L [place] Creatinine [Mass/Vol] 0.63 mg/dL 0.52 - 1.25 mg/dL [place] EGFR IF NonAfrican [place]ian >90.0 >60 mL/min [place] Comment on above: KDIGO guidelines pro vide the following GFR categories: Stage GFR(ml/min/1.73 m2) Terms G1 >=90 Normal or high G2 60-89 Mildly decreased* G3a 45-59 Mildly to moderately decreased G3b 30-44 Moderately to severely decreased G4 15-29 Severely decreased G5 <15 Kidney failure *Relative to young adult level. In the absence of evidence of kidney damage, neither GFR category G1 nor G2 fulfill the criteria for CKD. The CKD-EPI equation is validated in individuals 18 years of age and older. Currently the best equation for estimating glomerular filtration rate (GFR) from serum creatinine in children is the Bedside Quevedo equation. It is less accurate in patients with extremes of muscle mass, restriction of dietary protein, ingestion of creatine, extra-renal metabolism of creatinine, or treatment with medications that affect renal tubular creatinine secretion. GFR/1.73 sq M predicted among blacks MDRD (S/P/Bld) [Vol rate/Area] mL/min/{1.73_m2} >60 mL/min [place] Glucose [Mass/Vol] 253 mg/dL High 70 - 100 mg/dL [place] Interpretation and review of laboratory results Abnormal [place] Potassium [Moles/Vol] 4.4 mmol/L 3.5 - 5.1 mmol/L [place] Sodium [Moles/Vol] 129 mmol/L Low 135 - 145 mmol/L [place] Urea nitrogen [Mass/Vol] 20 mg/dL 7 - 20 mg/dL [place] Test Performed by [facility], [address] [place] [address] [place] Anion gap [Moles/Vol] 10 Normal [facility] Comment on above: Performed By: #### B GLU #### [address] Calcium [Mass/Vol] 8.7 mg/dL Normal 8.4-10.4 [facility] Comment on above: Performed By: #### B GLU #### [address] [address] CO2 [Moles/Vol] 27 mmol/L Normal 22-30 [facility] Comment on above: Performed By: #### B GLU #### [address] [address] Glucose [Mass/Vol] 178 mg/dL High 70-100 [facility] Comment on above: Performed By: #### B GLU #### [address] [address] Urea nitrogen [Mass/Vol] 18 mg/dL Normal 7-20 [facility] Comment on above: Performed By: #### B GLU #### [address] [address] Creatinine [Mass/Vol] 0.63 mg/dL Normal 0.52-1.25 [facility] Comment on above: Performed By: #### B GLU #### [facility] [address] [place] [address] GFR/1.73 sq M predicted among blacks MDRD (S/P/Bld) [Vol rate/Area] mL/min/{1.73_m2} Normal >60 [facility] Comment on above: Performed By: #### B GLU #### [facility] [address] [place] [address] GFR/1.73 sq M predicted among non-blacks MDRD (S/P/Bld) [Vol rate/Area] mL/min/{1.73_m2} Normal >60 [facility] Comment on above: Result Comment: KDIG O guidelines provide the following GFR categories: Stage GFR(ml/min/1.73 m2) Terms G1 >=90 Normal or high G2 60-89 Mildly decreased* G3a 45-59 Mildly to moderately decreased G3b 30-44 Moderately to severely decreased G4 15-29 Severely decreased G5 <15 Kidney failure *Relative to young adult level. In the absence of evidence of kidney damage, neither GFR category G1 nor G2 fulfill the criteria for CKD. The CKD-EPI equation is validated in individuals 18 years of age and older. Currently the best equation for estimating glomerular filtration rate (GFR) from serum creatinine in children is the Bedside Quevedo equation. It is less accurate in patients with extremes of muscle mass, restriction of dietary protein, ingestion of creatine, extra-renal metabolism of creatinine, or treatment with medications that affect renal tubular creatinine secretion. Performed By: #### B GLU #### [facility] [address] [place] [address] Potassium [Moles/Vol] 5.1 mmol/L Normal 3.5-5.1 [facility] Comment on above: Performed By: #### B GLU #### [facility] [address] [place] [address] Chloride [Moles/Vol] 92 mmol/L Low 98-107 [facility] Comment on above: Performed By: #### B GLU #### [facility] [address] [place] [address] Sodium [Moles/Vol] 129 mmol/L Low 135-145 [facility] Comment on above: Performed By: #### B GLU #### [facility] [address] [place] [address] Anion gap [Moles/Vol] 10 mmol/L [place] Calcium [Mass/Vol] 8.7 mg/dL 8.4 - 10. 4 mg/dL [place] Chloride [Moles/Vol] 92 mmol/L Low 98 - 10 7 mmol/L [place] CO2 [Moles/Vol] 27 mmol/L 22 - 30 mmol/L [place] Creatinine [Mass/Vol] 0.63 mg/dL 0.52 - 1.25 mg/dL [place] EGFR IF NonAfrican [place]ian >90.0 >60 mL/min [place] Comment on above: KDIGO guidelines pro vide the following GFR categories: Stage GFR(ml/min/1.73 m2) Terms G1 >=90 Normal or high G2 60-89 Mildly decreased* G3a 45-59 Mildly to moderately decreased G3b 30-44 Moderately to severely decreased G4 15-29 Severely decreased G5 <15 Kidney failure *Relative to young adult level. In the absence of evidence of kidney damage, neither GFR category G1 nor G2 fulfill the criteria for CKD. The CKD-EPI equation is validated in individuals 18 years of age and older. Currently the best equation for estimating glomerular filtration rate (GFR) from serum creatinine in children is the Bedside Quevedo equation. It is less accurate in patients with extremes of muscle mass, restriction of dietary protein, ingestion of creatine, extra-renal metabolism of creatinine, or treatment with medications that affect renal tubular creatinine secretion. GFR/1.73 sq M predicted among blacks MDRD (S/P/Bld) [Vol rate/Area] mL/min/{1.73_m2} >60 mL/min [place] Glucose [Mass/Vol] 178 mg/dL High 70 - 100 mg/dL [place] Interpretation and review of laboratory results Abnormal [place] Potassium [Moles/Vol] 5.1 mmol/L 3.5 - 5.1 mmol/L [place] Sodium [Moles/Vol] 129 mmol/L Low 135 - 145 mmol/L [place] Urea nitrogen [Mass/Vol] 18 mg/dL 7 - 20 mg/dL [facility], [place] Test Performed by [facility], [address] [place] [address] [place], [place] CULTURE URINEon 05-12-2020 CULTURE URINE CULTURE URINE --> Status: F No growth (<1,000 CFU/ml). Normal [facility] Comment on above: Order Comment: Speci men Source Comment:Urine, clean catch Performed By: #### B GLU #### [address] [address] Culture, Urineon 05-12-2020 Bacteria identified Cx Nom (U) No growth (<1,000 CFU/ml). [place], [place] Test Performed by [facility], [address] [place] [address] Specimen Source Comment:Urine, clean catch [place], [place] Glucose,Bedsideon 05-12-2020 Glucose [Mass/Vol] 131 mg/dL High 70-100 [facility] Comment on above: Result Comment: Test performed by glucose meter. Results may be 10%-15% lower than serum/plasma values. (CLIA ID [id number]) Performed By: #### T SGL #### [facility] [place] [address] [place], [place] [address] [place] [address] #### ABID #### [facility] Glucose [Mass/Vol] 208 mg/dL High 70-100 [facility] Comment on above: Result Comment: Test performed by glucose meter. Results may be 10%-15% lower than serum/plasma values. (CLIA ID [id number]) Performed By: #### T SGL #### [employer] [facility] [place] [address] [place] [address] [facility] #### ABID #### [facility] Glucose [Mass/Vol] 152 mg/dL High 70-100 [facility] Comment on above: Result Comment: Test performed by glucose meter. Results may be 10%-15% lower than serum/plasma values. (CLIA ID [id number]) Performed By: #### T SGL #### [facility] [address] [place] [address] [facility] #### ABID #### [facility] Glucose [Mass/Vol] 165 mg/dL High 70-100 [facility] Comment on above: Result Comment: Test performed by glucose meter. Results may be 10%-15% lower than serum/plasma values. (CLIA ID [id number]) Performed By: #### T SGL #### [facility] [address] [place] [address] [facility] #### ABID #### [facility] Glucose [Mass/Vol] 202 mg/dL High 70-100 [facility] Comment on above: Result Comment: Test performed by glucose meter. Results may be 10%-15% lower than serum/plasma values. (CLIA ID [id number]) Performed By: #### T SGL #### [place] [address] [place] [address] [facility] #### ABID #### [facility] Hemoglobin A1Con 05-12-2020 HbA1c (Bld) [Mass fraction] 6.7 % High 4.0-6.0 [facility] Comment on above: Result Comment: --Hg bA1C levels may not be accurate in patients who have renal disease, received recent blood transfusions, are anemic, or who have dyshemoglobinemia. Performed By: #### B GLU #### [place] [address] [address] [place], [place] HbA1c (Bld) [Mass fraction] 146 mg/dL Normal [facility] Comment on above: Performed By: #### B GLU #### [place] [address] [place] [address] Hemoglobin A1con 05-12-2020 eAG 146 mg/dL [facility] HbA1c (Bld) [Mass fraction] 6.7 % High 4 - 6 % [facility] Comment on above: --HgbA1C levels may not be accurate in patients who have renal disease, received recent blood transfusions, are anemic, or who have dyshemoglobinemia. Interpretation and review of laboratory results Abnormal [facility] [place], [place] Test Performed by [employer], [address] [place] [address] [facility] POCT Glucoseon 05-12-2020 Glucose [Mass/Vol] 131 mg/dL High 70 - 100 mg/dL [facility] [place] Comment on above: Test performed by gl ucose meter. Results may be 10%-15% lower than serum/plasma values. (CLIA ID [id number]) Interpretation and review of laboratory results Abnormal [facility] [place] Test Performed by [employer] [facility], [address] [place] [address] [facility] Glucose [Mass/Vol] 208 mg/dL High 70 - 100 mg/dL [facility] [place] Comment on above: Test performed by gl ucose meter. Results may be 10%-15% lower than serum/plasma values. (CLIA ID [id number]) Interpretation and review of laboratory results Abnormal [facility] [place] Test Performed by [employer] [facility], [address] [place] [address] [facility] Glucose [Mass/Vol] 152 mg/dL High 70 - 100 mg/dL [facility] Comment on above: Test performed by gl ucose meter. Results may be 10%-15% lower than serum/plasma values. (CLIA ID [id number]) Interpretation and review of laboratory results Abnormal [facility] [place] Test Performed by [employer], [address] [place] [address] [facility] Glucose [Mass/Vol] 165 mg/dL High 70 - 100 mg/dL [facility] Comment on above: Test performed by gl ucose meter. Results may be 10%-15% lower than serum/plasma values. (CLIA ID [id number]) Interpretation and review of laboratory results Abnormal [facility] [place] Test Performed by [employer] [facility], [address] [address] [facility] [place] Glucose [Mass/Vol] 202 mg/dL High 70 - 100 mg/dL [facility] [place] Comment on above: Test performed by gl ucose meter. Results may be 10%-15% lower than serum/plasma values. (CLIA ID [id number]) Interpretation and review of laboratory results Abnormal [facility] [place] Test Performed by [facility], [address] [place], [place] [address] [address] [place], [place] Surgical Pathologyon 020 Sodium [Moles/Vol] SEE BELOW [place], [place] 1 [id number] [facility] PATHOLOGY AND LABORATORY MEDICINE [address] [place] [address] FINAL SURGICAL PATHOLOGY REPORT NAME: ALEX JEFFERSON : 1965 54 Y [place] TURK NO.: [id number] LOCATION: [facility] 61[facility] PROCEDURE 05/10/2020 DATE: SURGEON: JEFFRY SERRANO M.D. RECEIVED 05/11/2020 DATE: ATTENDING: HERRERA ORNELAS DO REPORT DATE: 05/12/2020 COPIES TO: DIAGNOSIS: A. THIRD AND FOURTH INTERSPACE COMPARTMENT MUSCLE, EXCISION - GANGRENOUS NECROSIS B. EXTENSORS SYNOVIAL, EXCISION - FIBROCONNECTIVE TISSUE WITH EXTENSIVE ACUTE AND CHRONIC INFLAMMATION JAW/JAW Signature> REN LANDON M.D. CLINICAL INFORMATION: Not provided SPECIMEN: (A) TISSUE NOS (B) SYNOVIUM GROSS DESCRIPTION: A. Received in formalin labeled third and four interspace compartment muscle is a small fragment of pink-blevins, soft tissue which measures 1.4 x 0.6 x 0.8 cm. The tissue appears consistent with fragments of skeletal muscle. No obvious defects are identified. The specimen is bisected and entirely submitted in a single cassette. B. Received in formalin labeled extensor synovial is a single portion of apparent blevins-pink, synovial tissue which measures 2.6 x 1.6 x 0.6 cm. Portions of the tissue have a glossy, white surface while other portions have a mottled, blevins-mireles surface. No obvious defects or masses are identified. The specimen is sectioned and entirely submitted into two cassettes. DKS/CHRIS Disclaimer: The following statement applies to all immunohistochemistry, in situ hybridization, molecular studies, and immunofluorescence testing. The use of one or more reagents in the above tests is regulated as an analyte specific reagent (ASR). These tests were developed and their performance characteristics determined by the clinical laboratories of [facility]. They have not been cleared by the US Food and Drug Administration (FDA). The FDA has determined that such clearance or approval is not necessary. All the above immunostains were performed on paraffin embedded tissue. Appropriate positive and negative controls (where applicable) were run in parallel with the patient's specimen; these controls showed expected staining pattern, with acceptable intensity of staining. Immunohistochemical assays have not been validated on decalcified tissues. Results should be interpreted with caution given the raised possibility of false negativity on decalcified specimens. Professional Performing Location: [address] [address]. DEPARTMENT OF PATHOLOGY AND LABORATORY MEDICINE [place], [place] [address] [place], [place] ANTIBODY IDENTIFICATIONon Sodium [Moles/Vol] Negative [place], [place] Comment on above: ANTIBODY SCREEN POSI TIVE DUE TO ROULEAUX PRESENT IN SPECIMEN. NEGATIVE WITH SALINE REPLACEMENT. ROULEAUX IS NOT CLINICALLY SIGNIFICANT. Add On Lab Teston 05-11-2020 Sodium [Moles/Vol] Rejected [facility], [place] Comment on above: No specimen availabl e for addon. Test Performed by [facility], [address] [place] [address] [facility], [place] Sodium [Moles/Vol] Rejected [place], [place] Comment on above: No specimen availabl e for addon. Test Performed by [facility], [address] [place] [address] [facility] Sodium [Moles/Vol] Accepted [place], [place] Comment on above: Specimen available & acceptable for analysis. Test Performed by [facility], [address] [place] [address] [facility] Sodium [Moles/Vol] Accepted [place], [place] Comment on above: Specimen available & acceptable for analysis. Test Performed by [facility], [address] [place] [address] [facility] Sodium [Moles/Vol] Accepted [place], [place] Comment on above: Specimen available & acceptable for analysis. Test Performed by [facility], [address] [facility] [place] [address] [place], [place] Add on test from HISon 05-11 Add on test from HIS Rejected Normal [facility] Comment on above: Result Comment: No s pecimen available for addon. Performed By: #### P T/AP #### [facility] [address] [place], [place] Add on test from HIS Rejected Normal [facility] Comment on above: Result Comment: No s pecimen available for addon. Performed By: #### P T/AP #### [facility] [address] [place], [place] Add on test from HIS Accepted Normal [facility] Comment on above: Result Comment: Spec imen available & acceptable for analysis. Performed By: #### P T/AP #### [facility] [address] [place], [place] Add on test from HIS Accepted Normal [facility] Comment on above: Result Comment: Spec imen available & acceptable for analysis. Performed By: #### P T/AP #### [facility] [address] [place], [place] Add on test from HIS Accepted Normal [facility] Comment on above: Result Comment: Spec imen available & acceptable for analysis. Performed By: #### P T/AP #### [facility] [address] [place] [address] Basic Metabolic Panelon 08- Calcium [Mass/Vol] 8.4 mg/dL Normal 8.4-10.4 [facility] Comment on above: Performed By: #### B GLU #### [facility] [address] [place], [place] Anion gap [Moles/Vol] 7 Normal [facility] Comment on above: Performed By: #### B GLU #### [facility] [address] [place], [place] CO2 [Moles/Vol] 26 mmol/L Normal 22-[address] [facility] Comment on above: Performed By: #### B GLU #### [facility] [address] [place], [place] Creatinine [Mass/Vol] 0.52 mg/dL Normal 0.52-1.25 [facility] Comment on above: Performed By: #### B GLU #### [facility] [address] [place], [place] GFR/1.73 sq M predicted among blacks MDRD (S/P/Bld) [Vol rate/Area] mL/min/{1.73_m2} Normal >60 [facility] Comment on above: Performed By: #### B GLU #### [facility] [address] [place] [address] GFR/1.73 sq M predicted among non-blacks MDRD (S/P/Bld) [Vol rate/Area] mL/min/{1.73_m2} Normal >60 [facility] Comment on above: Result Comment: KDIG O guidelines provide the following GFR categories: Stage GFR(ml/min/1.73 m2) Terms G1 >=90 Normal or high G2 60-89 Mildly decreased* G3a 45-59 Mildly to moderately decreased G3b 30-44 Moderately to severely decreased G4 15-29 Severely decreased G5 <15 Kidney failure *Relative to young adult level. In the absence of evidence of kidney damage, neither GFR category G1 nor G2 fulfill the criteria for CKD. The CKD-EPI equation is validated in individuals 18 years of age and older. Currently the best equation for estimating glomerular filtration rate (GFR) from serum creatinine in children is the Bedside Quevedo equation. It is less accurate in patients with extremes of muscle mass, restriction of dietary protein, ingestion of creatine, extra-renal metabolism of creatinine, or treatment with medications that affect renal tubular creatinine secretion. Performed By: #### B GLU #### [place] [address] [address] [place], [place] Glucose [Mass/Vol] 171 mg/dL High 70-100 [facility] Comment on above: Performed By: #### B GLU #### [place] [address] [address] [place], [place] Urea nitrogen [Mass/Vol] 16 mg/dL Normal 7-20 [facility] Comment on above: Performed By: #### B GLU #### [place] [address] [address] [place], [place] Chloride [Moles/Vol] 93 mmol/L Low 98-107 [facility] Comment on above: Performed By: #### B GLU #### [place] [address] [address] [place], [place] Potassium [Moles/Vol] 5.0 mmol/L Normal 3.5-5.1 [facility] Comment on above: Result Comment: Slig htly hemolysed, interpret with caution. Performed By: #### B GLU #### [facility] [address] [place], [place] Sodium [Moles/Vol] 126 mmol/L Low 135-145 [facility] Comment on above: Performed By: #### B GLU #### [place] [address] [address] [place], [place] Anion gap [Moles/Vol] 7 mmol/L [place], [place] Calcium [Mass/Vol] 8.4 mg/dL 8.4 - 10. 4 mg/dL [place] Chloride [Moles/Vol] 93 mmol/L Low 98 - 10 7 mmol/L [place] CO2 [Moles/Vol] 26 mmol/L 22 - 30 mmol/L [place] Creatinine [Mass/Vol] 0.52 mg/dL 0.52 - 1.25 mg/dL [place] EGFR IF NonAfrican [place]ian >90.0 >60 mL/min [place], [place] Comment on above: KDIGO guidelines pro vide the following GFR categories: Stage GFR(ml/min/1.73 m2) Terms G1 >=90 Normal or high G2 60-89 Mildly decreased* G3a 45-59 Mildly to moderately decreased G3b 30-44 Moderately to severely decreased G4 15-29 Severely decreased G5 <15 Kidney failure *Relative to young adult level. In the absence of evidence of kidney damage, neither GFR category G1 nor G2 fulfill the criteria for CKD. The CKD-EPI equation is validated in individuals 18 years of age and older. Currently the best equation for estimating glomerular filtration rate (GFR) from serum creatinine in children is the Bedside Quevedo equation. It is less accurate in patients with extremes of muscle mass, restriction of dietary protein, ingestion of creatine, extra-renal metabolism of creatinine, or treatment with medications that affect renal tubular creatinine secretion. GFR/1.73 sq M predicted among blacks MDRD (S/P/Bld) [Vol rate/Area] mL/min/{1.73_m2} >60 mL/min [place] Glucose [Mass/Vol] 171 mg/dL High 70 - 100 mg/dL [place] Interpretation and review of laboratory results Abnormal [place], [place] Potassium [Moles/Vol] 5.0 mmol/L 3.5 - 5.1 mmol/L [place], [place] Comment on above: Slightly hemolysed, interpret with caution. Sodium [Moles/Vol] 126 mmol/L Low 135 - 145 mmol/L [place] Urea nitrogen [Mass/Vol] 16 mg/dL 7 - 20 mg/dL [place] Test Performed by [facility], [address] [place] [address] [place], [place] Anion gap [Moles/Vol] 10 Normal [facility] Comment on above: Performed By: #### P T/AP #### [facility] [address] [place] [address] Calcium [Mass/Vol] 8.7 mg/dL Normal 8.4-10.4 [facility] Comment on above: Performed By: #### P T/AP #### [facility] [address] [place] [address] CO2 [Moles/Vol] 26 mmol/L Normal 22-30 [facility] Comment on above: Performed By: #### P T/AP #### [facility] [address] [place] [address] Creatinine [Mass/Vol] 0.61 mg/dL Normal 0.52-1.25 [facility] Comment on above: Performed By: #### P T/AP #### [facility] [address] [place] [address] GFR/1.73 sq M predicted among blacks MDRD (S/P/Bld) [Vol rate/Area] mL/min/{1.73_m2} Normal >60 [facility] Comment on above: Performed By: #### P T/AP #### [facility] [address] [place] [address] GFR/1.73 sq M predicted among non-blacks MDRD (S/P/Bld) [Vol rate/Area] mL/min/{1.73_m2} Normal >60 [facility] Comment on above: Result Comment: KDIG O guidelines provide the following GFR categories: Stage GFR(ml/min/1.73 m2) Terms G1 >=90 Normal or high G2 60-89 Mildly decreased* G3a 45-59 Mildly to moderately decreased G3b 30-44 Moderately to severely decreased G4 15-29 Severely decreased G5 <15 Kidney failure *Relative to young adult level. In the absence of evidence of kidney damage, neither GFR category G1 nor G2 fulfill the criteria for CKD. The CKD-EPI equation is validated in individuals 18 years of age and older. Currently the best equation for estimating glomerular filtration rate (GFR) from serum creatinine in children is the Bedside Quevedo equation. It is less accurate in patients with extremes of muscle mass, restriction of dietary protein, ingestion of creatine, extra-renal metabolism of creatinine, or treatment with medications that affect renal tubular creatinine secretion. Performed By: #### P T/AP #### [facility] [address] [place], [place] Glucose [Mass/Vol] 212 mg/dL High 70-100 [facility] Comment on above: Performed By: #### P T/AP #### [facility] [address] [place], [place] Urea nitrogen [Mass/Vol] 17 mg/dL Normal 7-20 [facility] Comment on above: Performed By: #### P T/AP #### [facility] [address] [place], [place] Chloride [Moles/Vol] 91 mmol/L Low 98-107 [facility] Comment on above: Performed By: #### P T/AP #### [place] [address] [address] [place], [place] Potassium [Moles/Vol] 4.7 mmol/L Normal 3.5-5.1 [place], [place] Comment on above: Performed By: #### P T/AP #### [facility] [address] [place], [place] Sodium [Moles/Vol] 127 mmol/L Low 135-145 [place], [place] Comment on above: Performed By: #### P T/AP #### [place] [address] [address] [place], [place] Anion gap [Moles/Vol] 10 mmol/L [place], [place] Calcium [Mass/Vol] 8.7 mg/dL 8.4 - 10. 4 mg/dL [place] Chloride [Moles/Vol] 91 mmol/L Low 98 - 10 7 mmol/L [place] CO2 [Moles/Vol] 26 mmol/L 22 - 30 mmol/L [place] Creatinine [Mass/Vol] 0.61 mg/dL 0.52 - 1.25 mg/dL [place] EGFR IF NonAfrican [place]ian >90.0 >60 mL/min [place] Comment on above: KDIGO guidelines pro vide the following GFR categories: Stage GFR(ml/min/1.73 m2) Terms G1 >=90 Normal or high G2 60-89 Mildly decreased* G3a 45-59 Mildly to moderately decreased G3b 30-44 Moderately to severely decreased G4 15-29 Severely decreased G5 <15 Kidney failure *Relative to young adult level. In the absence of evidence of kidney damage, neither GFR category G1 nor G2 fulfill the criteria for CKD. The CKD-EPI equation is validated in individuals 18 years of age and older. Currently the best equation for estimating glomerular filtration rate (GFR) from serum creatinine in children is the Bedside Quevedo equation. It is less accurate in patients with extremes of muscle mass, restriction of dietary protein, ingestion of creatine, extra-renal metabolism of creatinine, or treatment with medications that affect renal tubular creatinine secretion. GFR/1.73 sq M predicted among blacks MDRD (S/P/Bld) [Vol rate/Area] mL/min/{1.73_m2} >60 mL/min [place] Glucose [Mass/Vol] 212 mg/dL High 70 - 100 mg/dL [place] Interpretation and review of laboratory results Abnormal [place] Urea nitrogen [Mass/Vol] 17 mg/dL 7 - 20 mg/dL [place] Test Performed by [address] [address] [place], [place] Anion gap [Moles/Vol] 7 Normal [facility] Comment on above: Performed By: #### H EMDF, BMP3M, HA1C2, CK3, LFT3 #### [address] [address] Calcium [Mass/Vol] 8.2 mg/dL Low 8.4-10.4 [facility] Comment on above: Performed By: #### H EMDF, BMP3M, HA1C2, CK3, LFT3 #### [address] [address] CO2 [Moles/Vol] 26 mmol/L Normal 22-30 [facility] Comment on above: Performed By: #### H EMDF, BMP3M, HA1C2, CK3, LFT3 #### [place] [address] [address] [place], [place] Glucose [Mass/Vol] 189 mg/dL High 70-100 [facility] Comment on above: Performed By: #### H EMDF, BMP3M, HA1C2, CK3, LFT3 #### [place] [address] [address] [place], [place] Urea nitrogen [Mass/Vol] 17 mg/dL Normal 7-20 [facility] Comment on above: Performed By: #### H EMDF, BMP3M, HA1C2, CK3, LFT3 #### [place] [address] [place], [place] Creatinine [Mass/Vol] 0.65 mg/dL Normal 0.52-1.25 [facility] Comment on above: Performed By: #### H EMDF, BMP3M, HA1C2, CK3, LFT3 #### [place] [address] [place], [place] GFR/1.73 sq M predicted among blacks MDRD (S/P/Bld) [Vol rate/Area] mL/min/{1.73_m2} Normal >60 [facility] Comment on above: Performed By: #### H EMDF, BMP3M, HA1C2, CK3, LFT3 #### [place] [address] [place] [address] GFR/1.73 sq M predicted among non-blacks MDRD (S/P/Bld) [Vol rate/Area] mL/min/{1.73_m2} Normal >60 [facility] Comment on above: Result Comment: KDIG O guidelines provide the following GFR categories: Stage GFR(ml/min/1.73 m2) Terms G1 >=90 Normal or high G2 60-89 Mildly decreased* G3a 45-59 Mildly to moderately decreased G3b 30-44 Moderately to severely decreased G4 15-29 Severely decreased G5 <15 Kidney failure *Relative to young adult level. In the absence of evidence of kidney damage, neither GFR category G1 nor G2 fulfill the criteria for CKD. The CKD-EPI equation is validated in individuals 18 years of age and older. Currently the best equation for estimating glomerular filtration rate (GFR) from serum creatinine in children is the Bedside Quevedo equation. It is less accurate in patients with extremes of muscle mass, restriction of dietary protein, ingestion of creatine, extra-renal metabolism of creatinine, or treatment with medications that affect renal tubular creatinine secretion. Performed By: #### H EMDF, BMP3M, HA1C2, CK3, LFT3 #### [place] [address] [address] [place], [place] Potassium [Moles/Vol] 4.4 mmol/L Normal 3.5-5.1 [facility] Comment on above: Performed By: #### H EMDF, BMP3M, HA1C2, CK3, LFT3 #### [place] [address] [address] [place], [place] Sodium [Moles/Vol] 125 mmol/L Low 135-145 [facility] Comment on above: Performed By: #### H EMDF, BMP3M, HA1C2, CK3, LFT3 #### [place] [address] [address] [place], [place] Chloride [Moles/Vol] 92 mmol/L Low 98-107 [facility] Comment on above: Performed By: #### H EMDF, BMP3M, HA1C2, CK3, LFT3 #### [place] [address] [address] [place], [place] Basic Metabolic Panel w/ Ref maranda to MGon 05-11-2020 Anion gap [Moles/Vol] 7 mmol/L [place], [place] Calcium [Mass/Vol] 8.2 mg/dL Low 8.4 - 10. 4 mg/dL [place], [place] Chloride [Moles/Vol] 92 mmol/L Low 98 - 10 7 mmol/L [place] CO2 [Moles/Vol] 26 mmol/L 22 - 30 mmol/L [place] Creatinine [Mass/Vol] 0.65 mg/dL 0.52 - 1.25 mg/dL [place], [place] EGFR IF NonAfrican Albanian >90.0 >60 mL/min [place], [place] Comment on above: KDIGO guidelines pro vide the following GFR categories: Stage GFR(ml/min/1.73 m2) Terms G1 >=90 Normal or high G2 60-89 Mildly decreased* G3a 45-59 Mildly to moderately decreased G3b 30-44 Moderately to severely decreased G4 15-29 Severely decreased G5 <15 Kidney failure *Relative to young adult level. In the absence of evidence of kidney damage, neither GFR category G1 nor G2 fulfill the criteria for CKD. The CKD-EPI equation is validated in individuals 18 years of age and older. Currently the best equation for estimating glomerular filtration rate (GFR) from serum creatinine in children is the Bedside Quevedo equation. It is less accurate in patients with extremes of muscle mass, restriction of dietary protein, ingestion of creatine, extra-renal metabolism of creatinine, or treatment with medications that affect renal tubular creatinine secretion. GFR/1.73 sq M predicted among blacks MDRD (S/P/Bld) [Vol rate/Area] mL/min/{1.73_m2} >60 mL/min [place], [place] Glucose [Mass/Vol] 189 mg/dL High 70 - 100 mg/dL [place] Interpretation and review of laboratory results Abnormal [place] Potassium [Moles/Vol] 4.4 mmol/L 3.5 - 5.1 mmol/L [place] Sodium [Moles/Vol] 125 mmol/L Low 135 - 145 mmol/L [place] Urea nitrogen [Mass/Vol] 17 mg/dL 7 - 20 mg/dL [place] Test Performed by [facility], [address] [place] [id number] [place] [address] CBC auto differentialon 05-02 Absolute Baso # 0.0 10*3/uL 0 - 0.2 10*3/uL [place], [place] Absolute Neut # 13.6 10*3/uL High 1.8 - 7 10*3/uL [place] Basophils/100 WBC (Bld) 0.3 % 0 - 2 % [place] Eosinophils (Bld) [#/Vol] 0.0 10*3/uL 0 - 0.5 10*3/uL [place] Eosinophils/100 WBC (Bld) 0.0 % Low 1 - 6 % [place] Erythrocyte distribution width (RBC) [Ratio] 13.9 % 11.5 - 14.5 % [place] Granulocytes/100 WBC (Bld) 92.4 % High 40 - 80 % [place] Hematocrit (Bld) [Volume fraction] 40.0 % 40 - 52 % [place] Hemoglobin (Bld) [Mass/Vol] 13.6 g/dL 13 - 18 g/dL [place] Interpretation and review of laboratory results Abnormal [place] Lymphocytes (Bld) [#/Vol] 0.4 10*3/uL Low 1 - 4.3 10*3/uL [place] Lymphocytes/100 WBC (Bld) 2.9 % Low 20 - 40 % [place] MCH (RBC) [Entitic mass] 30.7 pg 26 - 34 pg [place] MCHC (RBC) [Mass/Vol] 34.1 % 32 - 36 % [place], [place] MCV (RBC) [Entitic vol] 90.1 fL 80 - 98 fL [place], [place] Monocytes (Bld) [#/Vol] 0.7 10*3/uL 0 - 0.8 10*3/uL [place] Monocytes/100 WBC (Bld) 4.4 % 2 - 10 % [place], [place] Platelet mean volume (Bld) [Entitic vol] 8.0 fL 7.4 - 10.4 fL [place] Platelets (Bld) [#/Vol] 243 10*3/uL 140 - 440 10*3/uL [place] RBC (Bld) [#/Vol] 4.44 10*6/uL 4.4 - 5.9 10*6/uL [place] WBC (Bld) [#/Vol] 14.8 10*3/uL High 3.6 - 10.7 10*3/uL [place] Test Performed by [facility], [address] [place] [id number] [place], [place] CKon 05-11-2020 CK [Catalytic activity/Vol] 292 U/L High 30-170 [facility] Comment on above: Performed By: #### H EMDF, BMP3M, HA1C2, CK3, LFT3 #### [facility] [address] [place] [address] Total CK 292 U/L High 30 - 170 U/L [place], [place] EKG 12 Leadon 05-11-2020 Kory, [facility] Incoming Cardiology Results From Merge[employer] - 05/11/2020 5:12 PM EDT [facility] Test Date: 2020-05-10 Pat Name: Alex Jefferson Department: [facility] Room: 6120 Gender: M Client Professional: NICHOLE : 1965 Requested By: EDDIE BRENNAN Order Number: [id number] Reading MD: Tavia Rodriguez Measurements Intervals Faison Rate: 95 P: 67 DC: 153 QRS: 43 QRSD: 94 T: 62 QT: 334 QTc: 420 Interpretive Statements Sinus rhythm Probable left atrial enlargement Electronically Signed On 05-11-2020 17:11:33 EDT by [facility] [employer] [facility] Test Date: 2020-05-10 Pat Name: Alex Jefferson Department: [facility] Room: 6120 Gender: M Client Professional: NICHOLE : 1965 Requested By: EDDIE BRENNAN Order Number: [id number] Reading MD: Tavia Rodriguez Measurements Intervals Faison Rate: 95 P: 67 DC: 153 QRS: 43 QRSD: 94 T: 62 QT: 334 QTc: 420 Interpretive Statements Sinus rhythm Probable left atrial enlargement Electronically Signed On 05-11-2020 17:11:33 EDT by Tavia [employer] [facility] [employer] Glucose,Bedsideon 05-11-2020 Glucose [Mass/Vol] 180 mg/dL High 70-100 [facility] Comment on above: Result Comment: Test performed by glucose meter. Results may be 10%-15% lower than serum/plasma values. (CLIA ID [id number]) Performed By: #### B GLU #### [facility] [address] [place] [address] Glucose [Mass/Vol] 190 mg/dL High 70-100 [facility] Comment on above: Result Comment: Test performed by glucose meter. Results may be 10%-15% lower than serum/plasma values. (CLIA ID [id number]) Performed By: #### B GLU #### [facility] [address], [place] Glucose [Mass/Vol] 323 mg/dL High 70-100 [facility] Comment on above: Result Comment: Test performed by glucose meter. Results may be 10%-15% lower than serum/plasma values. (CLIA ID [id number]) Performed By: #### B GLU #### [place] [address] [address] [place], [place] Glucose [Mass/Vol] 186 mg/dL High 70-100 [facility] Comment on above: Result Comment: Test performed by glucose meter. Results may be 10%-15% lower than serum/plasma values. (CLIA ID [id number]) Performed By: #### P T/AP #### [place] [address] [address] [place], [place] Glucose [Mass/Vol] 189 mg/dL High 70-100 [facility] Comment on above: Result Comment: Test performed by glucose meter. Results may be 10%-15% lower than serum/plasma values. (CLIA ID [id number]) Performed By: #### B GLU #### [place] [address] [address] [place], [place] Hemoglobin A1Con 05-11-2020 HbA1c (Bld) [Mass fraction] 6.7 % High 4.0-6.0 [facility] Comment on above: Result Comment: --Hg bA1C levels may not be accurate in patients who have renal disease, received recent blood transfusions, are anemic, or who have dyshemoglobinemia. Performed By: #### H EMDF, BMP3M, HA1C2, CK3, LFT3 #### [place] [address] [address] [place], [place] HbA1c (Bld) [Mass fraction] 146 mg/dL Normal [facility] Comment on above: Performed By: #### H EMDF, BMP3M, HA1C2, CK3, LFT3 #### [address] eAG 146 mg/dL [place], [place] HbA1c (Bld) [Mass fraction] 6.7 % High 4 - 6 % [place] Comment on above: --HgbA1C levels may not be accurate in patients who have renal disease, received recent blood transfusions, are anemic, or who have dyshemoglobinemia. Interpretation and review of laboratory results Abnormal [place] Test Performed by [address] [address] [place] Hemogram w/ Autodiffon 05-11 Abs Baso Cnt 0.0 10*3/uL Normal 0.0-0.2 [facility] Comment on above: Performed By: #### H EMDF, BMP3M, HA1C2, CK3, LFT3 #### [address] Abs Neutrophile Cnt 13.6 10*3/uL High 1.8-7.0 [facility] Comment on above: Performed By: #### H EMDF, BMP3M, HA1C2, CK3, LFT3 #### [address] Basophils/100 WBC (Bld) 0.3 % Normal 0.0-2.0 [facility] Comment on above: Performed By: #### H EMDF, BMP3M, HA1C2, CK3, LFT3 #### [address] Eosinophils (Bld) [#/Vol] 0.0 10*3/uL Normal 0.0-0.5 [facility] Comment on above: Performed By: #### H EMDF, BMP3M, HA1C2, CK3, LFT3 #### [address] Eosinophils/100 WBC (Bld) 0.0 % Low 1.0-6.0 [facility] Comment on above: Performed By: #### H EMDF, BMP3M, HA1C2, CK3, LFT3 #### [address] Erythrocyte distribution width (RBC) [Ratio] 13.9 % Normal 11.5-14.5 [facility] Comment on above: Performed By: #### H EMDF, BMP3M, HA1C2, CK3, LFT3 #### [address] Granulocytes/100 WBC (Bld) 92.4 % High 40.0-80.0 [facility] Comment on above: Performed By: #### H EMDF, BMP3M, HA1C2, CK3, LFT3 #### [address] Hematocrit (Bld) [Volume fraction] 40.0 % Normal 40.0-52.0 [facility] Comment on above: Performed By: #### H EMDF, BMP3M, HA1C2, CK3, LFT3 #### [address] Hemoglobin (Bld) [Mass/Vol] 13.6 g/dL Normal 13.0-18.0 [facility] Comment on above: Performed By: #### H EMDF, BMP3M, HA1C2, CK3, LFT3 #### [address] Lymphocytes (Bld) [#/Vol] 0.4 10*3/uL Low 1.0-4.3 [facility] Comment on above: Performed By: #### H EMDF, BMP3M, HA1C2, CK3, LFT3 #### [address] Lymphocytes/100 WBC (Bld) 2.9 % Low 20.0-40.0 [facility] Comment on above: Performed By: #### H EMDF, BMP3M, HA1C2, CK3, LFT3 #### [address] MCH (RBC) [Entitic mass] 30.7 pg Normal 26.0-34.0 [facility] Comment on above: Performed By: #### H EMDF, BMP3M, HA1C2, CK3, LFT3 #### [address] MCHC (RBC) [Mass/Vol] 34.1 % Normal 32.0-36.0 [facility] Comment on above: Performed By: #### H EMDF, BMP3M, HA1C2, CK3, LFT3 #### [address] MCV (RBC) [Entitic vol] 90.1 fL Normal 80.0-98.0 [facility] Comment on above: Performed By: #### H EMDF, BMP3M, HA1C2, CK3, LFT3 #### [address] Monocytes (Bld) [#/Vol] 0.7 10*3/uL Normal 0.0-0.8 [facility] Comment on above: Performed By: #### H EMDF, BMP3M, HA1C2, CK3, LFT3 #### [address] Monocytes/100 WBC (Bld) 4.4 % Normal 2.0-10.0 [facility] Comment on above: Performed By: #### H EMDF, BMP3M, HA1C2, CK3, LFT3 #### [address] Platelet mean volume (Bld) [Entitic vol] 8.0 fL Normal 7.4-10.4 [facility] Comment on above: Performed By: #### H EMDF, BMP3M, HA1C2, CK3, LFT3 #### [address] Platelets (Bld) [#/Vol] 243 10*3/uL Normal 140-440 [facility] Comment on above: Performed By: #### H EMDF, BMP3M, HA1C2, CK3, LFT3 #### [facility] [address], [place] RBC (Bld) [#/Vol] 4.44 10*6/uL Normal 4.40-5.90 [facility] Comment on above: Performed By: #### H EMDF, BMP3M, HA1C2, CK3, LFT3 #### [place] [address] [address] [place], [place] WBC (Bld) [#/Vol] 14.8 10*3/uL High 3.6-10.7 [facility] Comment on above: Performed By: #### H EMDF, BMP3M, HA1C2, CK3, LFT3 #### [address] [place] [address] [place], [place] Hepatic Functionon 0 ALT [Catalytic activity/Vol] 24 U/L Normal 0-49 [facility] Comment on above: Result Comment: The ALT test is performed by an updated assay method. Please note that the reference intervals have been changed and are now sex specific. Performed By: #### H EMDF, BMP3M, HA1C2, CK3, LFT3 #### [address] [place] [address] [place], [place] ALP [Catalytic activity/Vol] 83 U/L Normal 38-126 [facility] Comment on above: Performed By: #### H EMDF, BMP3M, HA1C2, CK3, LFT3 #### [place] [address] [place], [place] AST [Catalytic activity/Vol] 37 U/L Normal 15-46 [facility] Comment on above: Performed By: #### H EMDF, BMP3M, HA1C2, CK3, LFT3 #### [place] [address] [address] [place], [place] Bilirubin [Mass/Vol] 0.5 mg/dL Normal 0.2-1.3 [facility] Comment on above: Performed By: #### H EMDF, BMP3M, HA1C2, CK3, LFT3 #### [place] [address] [place], [place] Bilirubin.direct [Mass/Vol] 0.0 mg/dL Normal 0.0-0.3 [facility] Comment on above: Performed By: #### H EMDF, BMP3M, HA1C2, CK3, LFT3 #### [facility] [address], [place] Protein [Mass/Vol] 6.1 g/dL Low 6.3-8.2 [facility] Comment on above: Performed By: #### H EMDF, BMP3M, HA1C2, CK3, LFT3 #### [facility] [address], [place] Albumin [Mass/Vol] 3.1 g/dL Low 3.5-5.0 [facility] Comment on above: Performed By: #### H EMDF, BMP3M, HA1C2, CK3, LFT3 #### [facility] [address], [place] Hepatic Function Panelon Albumin [Mass/Vol] 3.1 g/dL Low 3.5 - 5 g/dL [place], [place] ALP [Catalytic activity/Vol] 83 U/L 38 - 126 U/L [place] ALT [Catalytic activity/Vol] 24 U/L 0 - 49 U/L [place] Comment on above: The ALT test is perf ormed by an updated assay method. Please note that the reference intervals have been changed and are now sex specific. AST [Catalytic activity/Vol] 37 U/L 15 - 46 U/L [place] Bilirubin Ql (U) 0.5 mg/dL 0.2 - 1.3 mg/dL [place] Bilirubin.direct [Mass/Vol] 0.0 mg/dL 0 - 0.3 mg/dL [place] Protein [Mass/Vol] 6.1 g/dL Low 6.3 - 8.2 g/dL [place] Metabolic Panelon 05-11-2020 Sodium [Moles/Vol] Positive [place] Op Noteon 05-11-2020 Op Note PATIENT: ALEX JEFFERSON ADMISSION DATE: 05/10/2020 SURGERY DATE: 05/11/2020 DATE OF : 1965 AGE: 54 ADMITTING PHYSICIAN: Herrera Ornelas DO ATTENDING PHYSICIAN: Jeffry Serrano MD DICTATING PHYSICIAN: Jeffry Serrano MD OPERATIVE RECORD Procedure: 1. REPEAT DEBRIDEMENT OF RIGHT HAND WITH REPEAT WRIST ARTHROTOMY 2. REPEAT EXTENSOR SYNOVECTOMY. 3. REPEAT FLEXOR TENOSYNOVECTOMY. 4. PARTIAL WOUND CLOSURE WITH ADVANCEMENT FLAP 1 X 10 CM. 5. APPLICATION OF WOUND VAC. Preoperative Diagnoses: 1. Status post fasciotomy and carpal tunnel release, right hand. 2. Infection, right hand. Postoperative Diagnoses: 1. Status post fasciotomy and carpal tunnel release, right hand. 2. Infection, right hand. Anesthesia: General. Ham Clerk: Luke Neff D.O. Indications: This is a 54-year-old male who was operated approximately 24 hours ago for a compartment syndrome where he was found to have not only a compartment syndrome but an infection within his wrist and deep spaces of the hand. Clinically, his pain is markedly improved, but he is taken back at this time for repeat debridement, partial wound closure and application of a wound VAC if appropriate. He understands this still may need further surgery and that his infection still needs further treatment. General risks of surgery including anesthesia, reaction to medicine, including , unsightly skin incision, continued or chronic pain, inability to return to previous functional capacity either at home or at work, risk of chronic pain syndrome, neurovascular injury, and infection were reviewed. He stated he understood these risks and wished to proceed. No guarantees were stated or implied. Description of Procedure: The patient was identified in the preoperative area and the correct extremity identified and marked. He was taken to the operating room where he was prepped and draped in the usual sterile fashion with Betadine. A time-out was performed and agreed to by all operating room personnel present. The arm was Esmarched and the tourniquet inflated to 250 mmHg. We removed his few stay sutures and packing and inspected his wound. In the deep spaces of his hand,we re-debrided this down to including muscle. We saw no evidence of any pus or further infection. There was a significant amount of fibrinous type of material on the flexor tendons and a repeat flexor tenosynovectomy was performed of all flexor tendons in the forearm and carpal canal. We then freed up the median nerve of any traction neuropathy. On the extensor surface, we first explored the wrist joint, debrided and irrigated it and again we saw no evidence of pus. We then explored the intrinsic areas in the hand, specifically between the third and fourth rays where we had found pus previously and at this point, no further pockets of pus were Identified. We then irrigated his wounds in entirety with 4 L of antibiotic Saline. We then closed the volar incision with 4-0 nylon. We then partially closed his dorsal incisions. We were able to close essentially the longer incision with 3-0 nylon suture by undermining and using backcuts to create a flap to swing radially which allowed us to cover most of the extensor tendons. Th e length of the flap was 1 x 10 cm. The ulnar dorsal incision was left open exposing some extensor tendons. We then applied a wound VAC first covering over the exposed tendons and the open wound with Adaptic and then applying the black sponges and applying the wound VAC to not only that wound but the other dorsal wound and connecting them. When we tested it for any leaks, we had good suction. Dressing then consisted on the volar wound of Adaptic, bacitracin ointment, fluffy hand gauze and a resting hand splint. He was awakened and taken to the recovery area in satisfactory condition. [facility] Job ID: [id number] Jeffry Serrano MD DOD:05/11/2020 06:30 P IWONA/pio DOT:05/11/2020 07:23 P Job Number: [id number] Document Number: [id number] cc: Jeffry Serrano MD [facility] [address] Herrera Ornelas DO [facility] [employer] [address] [place] [id number] [facility] Op Note PATIENT: ALEX JEFFERSON ADMISSION DATE: 05/10/2020 SURGERY DATE: 05/10/2020 DATE OF : 1965 AGE: 54 ADMITTING PHYSICIAN: Herrera Ornelas DO ATTENDING PHYSICIAN: Jeffry Serrano MD DICTATING PHYSICIAN: Jeffry Serrano MD OPERATIVE RECORD Procedure: 1. RIGHT HAND FASCIOTOMY OF THENAR COMPARTMENT, HYPOTHENAR AND ALL INTRINSICS. 2. I AND D MULTIPLE DEEP WEB SPACES. 3. ARTHROTOMY, WRIST WITH DEBRIDEMENT OF INFECTED SYNOVIUM. 4. EXCISION NEUROMA, POSTERIOR INTEROSSEOUS NERVE AND BURIED IN MUSCLE. 5. RIGHT CARPAL TUNNEL RELEASE. 6. RIGHT WRIST FLEXOR TENOSYNOVECTOMY. 7. EXTENSOR SYNOVECTOMY, RIGHT WRIST. Preoperative Diagnosis: 1. Compartment Syndrome Right hand 2. Acute carpal tunnel syndrome Postoperative Diagnosis: 1. Compartment Syndrome Right hand 2. Acute carpal tunnel syndrome 3. Septic Right Wrist 4. Multiple Deep Space Infections right hand 5. Infected Intrinsic muscle with dorsal abcess Anesthesia: Plastics Engineering Teacher: Dr. Myles Blair. Indications: This is a 54-year-old male who presents today with increasing pain and swelling of his hand. Apparently, it has been bothering for a couple of weeks. He has no history of trauma, animal or bug bite, human bite and is not on any blood thinners. He said he had increasing pain, was using a splint and today he woke up, his hands just continued to swell and he was in excruciating pain. He was seen in the emergency room and the diagnosis of compartment syndrome was made and confirmed after compartmental pressure measurements taken. Treatment options have been explained to him and he is willing to proceed with a surgical decompression. He understands this. He may need further surgery. He could need prolonged antibiotics. He may never get all his hand function back and he may have permanent numbness, weakness, and loss of motion. General risks of surgery including anesthesia, reaction to medicine including , unsightly skin incision, continued chronic pain, inability to return to previous functional capacity at home or at work, risk of chronic pain syndrome, neurovascular injury, continued infection were reviewed. He stated he understood these risks and wished to proceed. No guarantees were stated or implied. Description of Procedure: After the patient was identified in the preoperative area and the correct extremity identified and marked, he was taken to the operating room where he was prepped and draped in the sterile fashion with Betadine. A time-out was performed and agreed to by all operating room personnel present. The arm was then Esmarched and the tourniquet inflated to 250 mmHg. We first outline 2 dorsal incisions, one between the second and third rays and one between the fourth and fifth rays. We opened the one between the second and third ray first and encountered a tremendous amount of edema fluid. The tendons had this fibrinous coating on them. Once we elevated the tendons, we then could see the fascia and we incised this and decompressed first the intrinsics between the index and long rays. We then next went over to the thenar muscles and decompressed these in a similar fashion. We then went between the third and fourth compartments and upon opening this, we did encounter pus. This was cultured and additionally we sent tissue with this as well. We then made a second incision between the fourth and fifth rays and decompressed the intrinsic muscles between the fourth and fifth digits and then ulnarly into the hypothenar area. We then did a very extensive extensor synovectomy removing all the fibrinous and scar-like tissue over the tendons to the index, long, ring and little fingers. Additionally, some of the fascia looked very grayish and we concerned about the possibility of necrotizing fasciitis and we further debrided and removed all abnormal looking fascia. We then extended the incision proximally well into the forearm. We opened the extensor retinaculum. We did a further extensor synovectomy up until the Level of the musculotendinous junction up in the forearm. The neuroma of the posterior interosseous nerve was excised and the proximal portion of the nerve buried in muscle. We then palpated the wrist joint and it felt boggy. We opened this transversely and there was a significant amount of synovitis and a lot of pus was then encountered. The synovium was excised and the joint debrided. This was cultured as well. Next, we made a very large extended carpal tunnel incision and carried the dissection down to the antebrachial fascia and then to the transverse carpal ligament, which we opened and left several millimeters on the ulnar side to prevent bowstring of the flexor tendons. The nerve was extremely compressed and had a very large area of erythema with an hourglass deformity.We then did an extensive flexor tenosynovectomy. Once we had completed a thorough synovectomy, we then dissected and inspected deeply and the intrinsic muscle had hematoma stained appearance and we then found a pocket of pus in the mid palmar space as well as the thenar space and we thoroughly decompressed this. We then irrigated all wounds with essentially 4 L of irrigation. We then closed the retinaculum with 4-0 PDS and then put the tourniquet down and achieved hemostasis. We then put packing into the wrist joint of iodoform gauze, as well as in between the third and fourth rays and down into the deep spaces of the hand and out through the carpal tunnel. The carpal tunnel incision was closed loosely as was the proximal portion of the incision over the forearm and wrist. Dressing then consisted of Adaptic, bacitracin ointment, fluffy hand gauze and a resting hand splint. He was awakened and taken to the recovery area in satisfactory condition. [employer] Job ID: [id number] Jeffry Serrano MD DOD:05/10/2020 11:29 P IWONA/pio DOT:05/11/2020 12:58 A Job Number: [id number] Document Number: [id number] cc: Jeffry Serrano MD [address] [facility] [address] Normal [facility] Osmolalityon 05-11-2020 Interpretation and review of laboratory results Abnormal [place], [place] Serum Osmolality 278 mosm/kg Low 280 - 300 mosm/kg [facility], [place] Test Performed by [facility] [address] [address] [facility], [place] Osmolality, Urineon 05-11-20 20 Osmolality (U) [Osmolality] 513 mosm/kg 300 - 1000 mosm/kg [facility], [place] Osmolality,Serumon 0 Osmolality,Serum 278 mosm/kg Low 280-300 [facility] Comment on above: Performed By: #### P T/AP #### [address] [address] Osmolality,Urineon 0 Osmolality,Urine 513 mosm/kg Normal 300-1000 [facility] H ealt System Comment on above: Performed By: #### P T/AP #### [address] [address] Otheron 05-11-2020 Test Performed by [address] [address] [facility], [place] Interpretation and review of laboratory results Abnormal [facility] Test Performed by [address] [place] [address] [facility] [place] Test Performed by [facility], [address] [place] [address] [facility], [place] POCT Glucoseon 05-11-2020 Glucose [Mass/Vol] 180 mg/dL High 70 - 100 mg/dL [facility] [place] Comment on above: Test performed by gl ucose meter. Results may be 10%-15% lower than serum/plasma values. (CLIA ID [id number]) Interpretation and review of laboratory results Abnormal [facility] [place], [place] Test Performed by [facility], [facility] [place] [address] [facility] [place], [place] Glucose [Mass/Vol] 190 mg/dL High 70 - 100 mg/dL [facility] [place] Comment on above: Test performed by gl ucose meter. Results may be 10%-15% lower than serum/plasma values. (CLIA ID [id number]) Interpretation and review of laboratory results Abnormal [facility] Test Performed by [facility], [facility] [place] [address] [facility], [place] Glucose [Mass/Vol] 323 mg/dL High 70 - 100 mg/dL [facility], [place] Comment on above: Test performed by gl ucose meter. Results may be 10%-15% lower than serum/plasma values. (CLIA ID [id number]) Interpretation and review of laboratory results Abnormal [facility] Test Performed by [employer] [facility], [facility] [place] [address] [facility] [place], [place] Glucose [Mass/Vol] 186 mg/dL High 70 - 100 mg/dL [facility] [place], [place] Comment on above: Test performed by gl ucose meter. Results may be 10%-15% lower than serum/plasma values. (CLIA ID [id number]) Interpretation and review of laboratory results Abnormal [facility] [place] Glucose [Mass/Vol] 189 mg/dL High 70 - 100 mg/dL [facility] Comment on above: Test performed by gl ucose meter. Results may be 10%-15% lower than serum/plasma values. (CLIA ID [id number]) Interpretation and review of laboratory results Abnormal [facility] [place], [place] Test Performed by [facility], [address] [place] [address] [facility], [place] Sodium, Ur Randomon 05-11-20 20 Sodium [Moles/Vol] mmol/L Low 30-90 [facility] Comment on above: Performed By: #### P T/AP #### [address] [address] Sodium, Urine, Randomon 05-02 Interpretation and review of laboratory results Abnormal [facility] [place], [place] Sodium (U) [Moles/Vol] mmol/L Low 30 - 90 mmol/L [facility] [place] Test Performed by [facility], [address] [place] [address] [facility], [place] Surgical Pathologyon 020 Surgical Pathology [id number] [facility] PATHOLOGY AND LABORATORY MEDICINE [address] [place] [id number] FINAL SURGICAL PATHOLOGY REPORT NAME: ALEX JEFFERSON : 1965 54 [address] [place] [facility] NO.: [id number] LOCATION: [facility] 6120 01 PROCEDURE 05/10/2020 DATE: SURGEON: JEFFRY SERRANO M.D. RECEIVED 05/11/2020 DATE: ATTENDING: HERRERA ORNELAS DO REPORT DATE: 05/12/2020 COPIES TO: DIAGNOSIS: A. THIRD AND FOURTH INTERSPACE COMPARTMENT MUSCLE, EXCISION - GANGRENOUS NECROSIS B. EXTENSORS SYNOVIAL, EXCISION - FIBROCONNECTIVE TISSUE WITH EXTENSIVE ACUTE AND CHRONIC INFLAMMATION JAW/JAW Signature> REN LANDON M.D. CLINICAL INFORMATION: Not provided SPECIMEN: (A) TISSUE NOS (B) SYNOVIUM GROSS DESCRIPTION: A. Received in formalin labeled third and four interspace compartment muscle is a small fragment of pink-blevins, soft tissue which measures 1.4 x 0.6 x 0.8 cm. The tissue appears consistent with fragments of skeletal muscle. No obvious defects are identified. The specimen is bisected and entirely submitted in a single cassette. B. Received in formalin labeled extensor synovial is a single portion of apparent blevins-pink, synovial tissue which measures 2.6 x 1.6 x 0.6 cm. Portions of the tissue have a glossy, white surface while other portions have a mottled, blevins-mireles surface. No obvious defects or masses are identified. The specimen is sectioned and entirely submitted into two cassettes. ALLEN/CHRIS Disclaimer: The following statement applies to all immunohistochemistry, in situ hybridization, molecular studies, and immunofluorescence testing. The use of one or more reagents in the above tests is regulated as an analyte specific reagent (ASR). These tests were developed and their performance characteristics determined by the clinical laboratories of [facility]. They have not been cleared by the US Food and Drug Administration (FDA). The FDA has determined that such clearance or approval is not necessary. All the above immunostains were performed on paraffin embedded tissue. Appropriate positive and negative controls (where applicable) were run in parallel with the patient's specimen; these controls showed expected staining pattern, with acceptable intensity of staining. Immunohistochemical assays have not been validated on decalcified tissues. Results should be interpreted with caution given the raised possibility of false negativity on decalcified specimens. Professional Performing Location: [facility] [address] [place] [address]. DEPARTMENT OF PATHOLOGY AND LABORATORY MEDICINE [place], [place] [address] Normal [facility] TS GELon 05-11-2020 TS GEL ABO Group: O Rh, Gel: POS Antibody Screen Gel: POS Normal [facility] Comment on above: Performed By: #### T SGL #### [facility] [address] [place] [address] [facility] #### ABID #### [facility] TYPE AND SCREENon 05-11-2020 Sodium [Moles/Vol] O [place], [place] Antibody Identificationon Antibody Identification Antibody Identification: NEG ANTIBODY SCREEN POSITIVE DUE TO ROULEAUX PRESENT IN SPECIMEN. NEGATIVE WITH SALINE REPLACEMENT. ROULEAUX IS NOT CLINICALLY SIGNIFICANT. Normal [facility] Comment on above: Performed By: #### T SGL #### [place] [address] [address] [place], [place] [id number] [place] [address] #### ABID #### [facility] Basic Metabolic Panelon Anion gap [Moles/Vol] 13 mmol/L [place], [place] Calcium [Mass/Vol] 8.7 mg/dL 8.4 - 10. 4 mg/dL [place], [place] Chloride [Moles/Vol] 92 mmol/L Low 98 - 10 7 mmol/L [place], [place] CO2 [Moles/Vol] 23 mmol/L 22 - 30 mmol/L [place], [place] Creatinine [Mass/Vol] 0.78 mg/dL 0.52 - 1.25 mg/dL [place], [place] EGFR IF NonAfrican Albanian >90.0 >60 mL/min [place], [place] Comment on above: KDIGO guidelines pro vide the following GFR categories: Stage GFR(ml/min/1.73 m2) Terms G1 >=90 Normal or high G2 60-89 Mildly decreased* G3a 45-59 Mildly to moderately decreased G3b 30-44 Moderately to severely decreased G4 15-29 Severely decreased G5 <15 Kidney failure *Relative to young adult level. In the absence of evidence of kidney damage, neither GFR category G1 nor G2 fulfill the criteria for CKD. The CKD-EPI equation is validated in individuals 18 years of age and older. Currently the best equation for estimating glomerular filtration rate (GFR) from serum creatinine in children is the Bedside Quevedo equation. It is less accurate in patients with extremes of muscle mass, restriction of dietary protein, ingestion of creatine, extra-renal metabolism of creatinine, or treatment with medications that affect renal tubular creatinine secretion. GFR/1.73 sq M predicted among blacks MDRD (S/P/Bld) [Vol rate/Area] mL/min/{1.73_m2} >60 mL/min [place], [place] Glucose [Mass/Vol] 122 mg/dL High 70 - 100 mg/dL [place] Potassium [Moles/Vol] 3.9 mmol/L 3.5 - 5.1 mmol/L [place] Sodium [Moles/Vol] 128 mmol/L Low 135 - 145 mmol/L [place] Urea nitrogen [Mass/Vol] 13 mg/dL 7 - 20 mg/dL [place] CKon 05-10-2020 Total CK 280 U/L High 30 - 170 U/L [place], [place] CR Chest Portableon 05-10-20 20 CR Chest Portable Patient Name: ALEX JEFFERSON Diagnostic Radiology Exam Date/Time 05/10/2020 20:48:28 EDT Exam CR Chest Portable Ordering Physician [id number] EDDIE YEUNG Accession Number [id number] CPT4 Codes 72627 () Reason For Exam pre-op Report SINGLE FRONTAL VIEW OF THE CHEST CLINICAL INDICATION: pre-op TECHNIQUE: Single frontal view of the chest COMPARISON: None FINDINGS: Lungs show no significant consolidation. No pleural effusion or pneumothorax. No vascular congestion. Heart size normal. IMPRESSION: 1. No acute finding. Report Dictated on Final Dictated: 05/10/2020 8:44 pm Dictating Physician: MD JIMENEZ JOHN R Signed Date and Time: 05/10/2020 8:44 pm Signed by: MD JIMENEZ JOHN R Transcribed Date and Time: 05/10/2020 8:44 Normal [facility] ED Provider Noteon 0 ED Provider Note Emergency Department Encounter Location: [facility] EMERGENCY DEPT Patient: Alex Jefferson : 1965 Date of evaluation: 05/10/2020 ED Provider: Herrera Ornelas, DO 6:45p.m. Alex Jefferson was checked out to me by Dr. Ray. Please see his/her initial documentation for details of the patient's initial ED presentation, physical exam and completed studies. In brief, Alex Jefferson is a 54 y.o. male that presented to the emergency department with increased right hand pain. Patient was transferred from [facility] emergency room with concerns for compartment syndrome. Patient states he had a splint placed at [facility] on April 24 however he is unsure why he had a splint placed. Patient states his hand has persistently been swelling and becoming more painful. Patient states he was unable to get his splint off today on his own due to the swelling so his brother cut the splint off and he presented to the emergency room. I have reviewed and interpreted all of the currently available lab results and diagnostics from this visit: Results for orders placed or performed during the hospital encounter of 05/10/20 Urinalysis Result Value Ref Range Glucose, Ur Normal Normal (<70) mg/dL Total Protein, Urine 200 (A) Negative mg/dL Bilirubin Urine Negative Negative mg/dL Urobilinogen, Urine 4 (A) Normal (0-1) mg/dL pH, Urine 6.0 5.0 - 8.0 NA Specific [place], Urine 1.017 1.005 - 1.030 NA Occult Blood,Urine 0.2 (A) Negative mg/dL Ketones, Urine 10 (A) Negative mg/dL Nitrite, Urine Negative Negative NA LEUKOCYTES, UA Negative Negative Mary/uL Appearance Turbid (A) Clear NA Color, Urine YELLOW Lt. Yellow NA Volume 8-12 ml NA RBC, UA 0-2 0 - 2 /[HPF] WBC, UA 6-10 (A) 0 - 5 /[HPF] Squam Epithel, UA 3-5 3 - 5 /[HPF] Bacteria, UA Moderate (6-50) (A) Negative /[HPF] Mucous Threads Few Negative /[LPF] Hemogram (CBC) w/Auto Diff Result Value Ref Range WBC 12.4 (H) 3.6 - 10.7 10*3/uL RBC 4.93 4.40 - 5.90 10*6/uL Hemoglobin 15.3 13.0 - 18.0 g/dL Hematocrit 43.9 40.0 - 52.0 % MCV 89.1 80.0 - 98.0 fL MCH 31.1 26.0 - 34.0 pg MCHC 34.9 32.0 - 36.0 % RDW 13.6 11.5 - 14.5 % Platelets 268 140 - 440 10*3/uL MPV 7.6 7.4 - 10.4 fL Granulocytes % 81.6 (H) 40.0 - 80.0 % Lymphocyte % 6.9 (L) 20.0 - 40.0 % Monocytes 10.8 (H) 2.0 - 10.0 % Eosinophils 0.1 (L) 1.0 - 6.0 % Basophils 0.6 0.0 - 2.0 % Absolute Neut # 10.2 (H) 1.8 - 7.0 10*3/uL Absolute Lymph # 0.9 (L) 1.0 - 4.3 10*3/uL Absolute Brown # 1.3 (H) 0.0 - 0.8 10*3/uL Absolute Eos # 0.0 0.0 - 0.5 10*3/uL Absolute Baso # 0.1 0.0 - 0.2 10*3/uL Lactic Acid, Plasma Result Value Ref Range Lactic Acid 1.1 0.7 - 2.0 mmol/L Basic Metabolic Panel Result Value Ref Range Sodium 128 (L) 135 - 145 mmol/L Potassium 3.9 3.5 - 5.1 mmol/L Chloride 92 (L) 98 - 107 mmol/L CO2 23 22 - 30 mmol/L Anion Gap 13 NA Glucose 122 (H) 70 - 100 mg/dL BUN 13 7 - 20 mg/dL CREATININE 0.78 0.52 - 1.25 mg/dL eGFR >90.0 >60 mL/min EGFR IF NonAfrican Albanian >90.0 >60 mL/min Calcium 8.7 8.4 - 10.4 mg/dL CK Result Value Ref Range Total CK 280 (H) 30 - 170 U/L Xr Radius Ulna Right (2 Views) Result Date: 05/10/2020 Patient Name: ALEX JEFFERSON ---Diagnostic Radiology--- Exam Date/Time 05/10/2020 15:21:02 EDT Exam CR Forearm 2 Views Right Ordering Physician JERZY BRIANOLAS Accession Number [id number] CPT4 Codes 12802 () Reason For Exam pain and swelling Report RIGHT FOREARM: CLINICAL INDICATION: Pain and swelling TECHNIQUE: AP and Lateral COMPARISON: None FINDINGS: There is no evidence for fracture or dislocation. No osseous erosions. No radiopaque foreign body. No subcutaneous emphysema. No bone lesion is identified. There is soft tissue swelling the dorsum of the right forearm. IMPRESSION: Soft tissue swelling. No fracture or dislocation. No osseous erosions or radiopaque foreign body. Report Dictated on Workstation: [employer] --- Final --- Dictating Physician: MD MARAVILLA KEVIN Signed Date and Time: 05/10/2020 4:15 pm Signed by: MD MARAVILLA KEVIN Transcribed Date and Time: 05/10/2020 4:16 Xr Hand Right (min 3 Views) Result Date: 05/10/2020 Patient Name: ALEX JEFFERSON ---Diagnostic Radiology--- Exam Date/Time 05/10/2020 15:21:02 EDT Exam CR Hand Complete 3+ Views Right Ordering Physician Brandee ChambersELIZAWILBERTLUCIEN Accession Number [id number] CPT4 Codes 66401 () Reason For Exam pain and swelling Report RIGHT HAND: CLINICAL INDICATION: Pain and swelling. TECHNIQUE: PA, Lat, and oblique. Suboptimal evaluation due to poor patient positioning and inability to extend fingers. COMPARISON: None. FINDINGS: There is no fracture or dislocation. No osseous erosions. No radiopaque foreign bodies. No subcutaneous emphysema. No bone lesion is identified. There is extensive soft tissue swelling about the dorsum of the right hand. IMPRESSION: Suboptimal evaluation due to poor patient positioning and inability to extend fingers. Extensive soft tissue swelling of the dorsum of the right hand. No overt fracture or dislocation. Report Dictated on --- Final --- Dictating Physician: MD MARAVILLA KEVIN Signed Date and Time: 05/10/2020 4:15 pm Signed by: MD MARAVILLA KEVIN Transcribed Date and Time: 05/10/2020 4:16 Final ED Course and MDM: In brief, Alex Jefferson is a 54 y.o. male whose care was signed out to me by the outgoing provider. In brief, patient presents with increased right hand and forearm pain and swelling. Transferred from outlying facility for concerns for compartment syndrome. Orthopedic surgery contacted immediately upon patient arrival and evaluated patient in the emergency room. Patient to operating room with orthopedic surgery for fixation of his right upper extremity compartment syndrome. ED Medication Orders (From admission, onward) Start Ordered Status Ordering Provider 05/10/20199905/10/201958 HYDROmorphone (DILAUDID) injection 1 mg ONCE Last MAR action: Given - by PETER BELLA on 05/10/20 at 2012 HERRERA ORNELAS 05/10/20 1732 05/10/20 1731 oxyCODONE-acetaminophe n (PERCOCET) 5-325 MG per tablet 1 tablet ONCE Last MAR action: Given - by MILI WILLIS on 05/10/20 at 1737 JOURLUCIEN ATKINS 05/10/20 1456 05/10/20 1455 0.9 % sodium chloride bolus ONCE Last MAR action: Stopped - by MILI WILLIS on 05/10/20 at 1726 LUCIEN RAY 05/10/20 1456 05/10/20 1455 HYDROmorphone (DILAUDID) injection 1 mg ONCE Last MAR action: Given - by MILI WILLIS on 05/10/20 at 1529 LUCIEN RAY Final Impression 1. Compartment syndrome of right hand, initial encounter (HCC) 2. Right hand pain DISPOSITION Decision To Admit 05/10/2020 08:33:03 PM (Please note that portions of this note may have been completed with a voice recognition program. Efforts were made to edit the dictations but occasionally words are mis-transcribed.) Herrera Ornelas DO [employer] Herrera Ornelas DO 05/10/202033 Normal [facility] Hemogram (CBC) w/Auto Diffon 05-10-2020 Absolute Baso # 0.1 10*3/uL 0 - 0.2 10*3/uL [place], [place] Absolute Neut # 10.2 10*3/uL High 1.8 - 7 10*3/uL [place] Basophils/100 WBC (Bld) 0.6 % 0 - 2 % [place], [place] Eosinophils (Bld) [#/Vol] 0.0 10*3/uL 0 - 0.5 10*3/uL [place] Eosinophils/100 WBC (Bld) 0.1 % Low 1 - 6 % [place] Erythrocyte distribution width (RBC) [Ratio] 13.6 % 11.5 - 14.5 % [place] Granulocytes/100 WBC (Bld) 81.6 % High 40 - 80 % [place] Hematocrit (Bld) [Volume fraction] 43.9 % 40 - 52 % [place] Hemoglobin (Bld) [Mass/Vol] 15.3 g/dL 13 - 18 g/dL [place], [place] Interpretation and review of laboratory results Abnormal [place], [place] Lymphocytes (Bld) [#/Vol] 0.9 10*3/uL Low 1 - 4.3 10*3/uL [place], [place] Lymphocytes/100 WBC (Bld) 6.9 % Low 20 - 40 % [place] MCH (RBC) [Entitic mass] 31.1 pg 26 - 34 pg [place] MCHC (RBC) [Mass/Vol] 34.9 % 32 - 36 % [place], [place] MCV (RBC) [Entitic vol] 89.1 fL 80 - 98 fL [place], [place] Monocytes (Bld) [#/Vol] 1.3 10*3/uL High 0 - 0.8 10*3/uL [place], [place] Monocytes/100 WBC (Bld) 10.8 % High 2 - 10 % [place], [place] Comment on above: reran/rechecked Platelet mean volume (Bld) [Entitic vol] 7.6 fL 7.4 - 10.4 fL [place], [place] Platelets (Bld) [#/Vol] 268 10*3/uL 140 - 440 10*3/uL [place], [place] RBC (Bld) [#/Vol] 4.93 10*6/uL 4.4 - 5.9 10*6/uL [place], [place] WBC (Bld) [#/Vol] 12.4 10*3/uL High 3.6 - 10.7 10*3/uL [place] Test Performed by [facility], [address] , [address] Lactic Acid, Plasmaon 2019 Lactate [Moles/Vol] 1.1 mmol/L 0.7 - 2 mmol/L [place], [place] Test Performed by [facility], [facility] Sushma Ingram , [address] Otheron 05-10-2020 Interpretation and review of laboratory results Abnormal [place], [place] Test Performed by [facility], [facility] Sushma Ingram [address] PROTIME/INR & PTTon 05-10-20 20 aPTT Coag (Bld) [Time] 29.5 s 20 - 30.5 s [place], [place] Comment on above: NOTE: The therapeuti c time for Heparin anticoagulation, based on Xa activity inhibition, is an APTT of 46-80 seconds. INR Coag (PPP) [Relative time] 1.1 {INR} [place], [place] Comment on above: Recommended Anticoag ulant Therapy: SEE BELOW ----- INR of 2.0 - 3.0 : - Prophylaxis of Venous Thrombosis (high-risk surgery) - Treatment of Venous Thrombosis - Treatment of Pulmonary Embolism (Includes tissue heart valves, Acute Myocardial Infarction to prevent systemic embolism, Valvular Heart Disease, and Atrial Fibrillation) ----- INR of 2.5 - 3.5 : - Mechanical Prosthetic Valves (high risk) - If oral anticoagulant therapy is used to prevent Myocardial Infarction Interpretation and review of laboratory results Abnormal [place], [place] PT Coag (PPP) [Time] 12.2 s High 9 - 12 s [place], [place] Comment on above: . Test Performed by [facility], [address] [place] [id number] [place] [address] Protime AND APTTon 0 aPTT Coag (Bld) [Time] 29.5 s Normal 20.0-30.5 [facility] Comment on above: Result Comment: NOTE : The therapeutic time for Heparin anticoagulation, based on Xa activity inhibition, is an APTT of 46-80 seconds. Performed By: #### P T/AP #### [address] INR Coag (PPP) [Relative time] 1.1 Normal 0.9-1.1 [facility] Comment on above: Result Comment: Jimy mmended Anticoagulant Therapy: SEE BELOW ----- INR of 2.0 - 3.0 : - Prophylaxis of Venous Thrombosis (high-risk surgery) - Treatment of Venous Thrombosis - Treatment of Pulmonary Embolism (Includes tissue heart valves, Acute Myocardial Infarction to prevent systemic embolism, Valvular Heart Disease, and Atrial Fibrillation) ----- INR of 2.5 - 3.5 : - Mechanical Prosthetic Valves (high risk) - If oral anticoagulant therapy is used to prevent Myocardial Infarction Performed By: #### P T/AP #### [address] PT Coag (PPP) [Time] 12.2 s High 9.0-12.0 [facility] Comment on above: Result Comment: . Performed By: #### P T/AP #### [address] Urinalysison 05-10-2020 Appearance (U) Turbid Abnormal Clear NA [place], [place] Comment on above: . Bacteria, UA Moderate (6-50) Abnormal Negative /[HPF] [place], [place] Comment on above: . Bilirubin Urine Negative Negative mg/dL [place], [place] Comment on above: . Color (U) YELLOW Lt. Yellow NA [place], [place] Comment on above: . Glucose, Ur Normal Normal (<70) mg/dL [place], [place] Comment on above: . Interpretation and review of laboratory results Abnormal [place], [place] Ketones Ql (U) 10 mg/dL Abnormal Negative [place], [place] Comment on above: . LEUKOCYTES, UA Negative Negative Mary/uL [place], [place] Comment on above: . Mucous Threads Few Negative /[LPF] [place], [place] Comment on above: . Nitrite, Urine Negative Negative NA [place], [place] Comment on above: . Occult Blood,Urine 0.2 mg/dL Abnormal Negative [place], [place] Comment on above: . pH (U) 6.0 [pH] [place], [place] Comment on above: . Protein (U) [Mass/Vol] 200 mg/dL Abnormal Negative [place], [place] Comment on above: . RBC (U) [#/Vol] 0-2 0 - 2 /[HPF] [place], [place] Comment on above: . Specific [place], Urine 1.017 M [place], [place] Comment on above: . Squam Epithel, UA 3-5 3 - 5 /[HPF] [place], [place] Comment on above: . Urobilinogen, Urine 4 mg/dL Abnormal Normal (0-1) [place], [place] Comment on above: . Volume 8-12 ml [place], [place] Comment on above: . WBC, UA 6-10 Abnormal 0 - 5 /[HPF] [place], [place] Comment on above: . Test Performed by [facility], [address] [place] [address] Rd. , [address] XR CHEST PORTABLEon 05-10-20 20 Patient Name: ALEX JEFFERSON ---Diagnostic Radiology--- Exam Date/Time 05/10/2020 20:48:28 EDT Exam CR Chest Portable Ordering Physician [id number] EDDIE YEUNG Accession Number [id number] CPT4 Codes 84307 () Reason For Exam pre-op Report SINGLE FRONTAL VIEW OF THE CHEST CLINICAL INDICATION: pre-op TECHNIQUE: Single frontal view of the chest COMPARISON: None FINDINGS: Lungs show no significant consolidation. No pleural effusion or pneumothorax. No vascular congestion. Heart size normal. IMPRESSION: 1. No acute finding. Report Dictated on --- Final --- Dictated: 05/10/2020 8:44 pm Dictating Physician: MD JIMENEZ JOHN R Signed Date and Time: 05/10/2020 8:44 pm Signed by: MD JIMENEZ JOHN R Transcribed Date and Time: 05/10/2020 8:44 [place], [place] Incoming Radiology Results From [facility] - 05/10/2020 8:48 PM EDT Patient Name: ALEX JEFFERSON ---Diagnostic Radiology--- Exam Date/Time 05/10/2020 20:48:28 EDT Exam CR Chest Portable Ordering Physician [id number] WILSON Accession Number [id number] CPT4 Codes 38263 () Reason For Exam pre-op Report SINGLE FRONTAL VIEW OF THE CHEST CLINICAL INDICATION: pre-op TECHNIQUE: Single frontal view of the chest COMPARISON: None FINDINGS: Lungs show no significant consolidation. No pleural effusion or pneumothorax. No vascular congestion. Heart size normal. IMPRESSION: 1. No acute finding. Report Dictated on --- Final --- Dictated: 05/10/2020 8:44 pm Dictating Physician: MD JIMENEZ JOHN R Signed Date and Time: 05/10/2020 8:44 pm Signed by: MD JIMENEZ JOHN R Transcribed Date and Time: 05/10/2020 8:44 [place], [place] XR HAND RIGHT (MIN 3 VIEWS)o n 05-10-2020 [facility] Results From [facility] - 05/10/2020 4:16 PM EDT Patient Name: ALEX JEFFERSON ---Diagnostic Radiology--- Exam Date/Time 05/10/2020 15:21:02 EDT Exam CR Hand Complete 3+ Views Right Ordering Physician LUCIEN BRIAN Accession Number [id number] CPT4 Codes 22503 () Reason For Exam pain and swelling Report RIGHT HAND: CLINICAL INDICATION: Pain and swelling. TECHNIQUE: PA, Lat, and oblique. Suboptimal evaluation due to poor patient positioning and inability to extend fingers. COMPARISON: None. FINDINGS: There is no fracture or dislocation. No osseous erosions. No radiopaque foreign bodies. No subcutaneous emphysema. No bone lesion is identified. There is extensive soft tissue swelling about the dorsum of the right hand. IMPRESSION: Suboptimal evaluation due to poor patient positioning and inability to extend fingers. Extensive soft tissue swelling of the dorsum of the right hand. No overt fracture or dislocation. Report Dictated on --- Final --- Dictating Physician: MD MARAVILLA KEVIN Signed Date and Time: 05/10/2020 4:15 pm Signed by: MD MARAVILLA KEVIN Transcribed Date and Time: 05/10/2020 4:16 [place], [place] Patient Name: ALEX JEFFERSON ---Diagnostic Radiology--- Exam Date/Time 05/10/2020 15:21:02 EDT Exam CR Hand Complete 3+ Views Right Ordering Physician LUCIEN BRIAN Accession Number [id number] CPT4 Codes 96895 () Reason For Exam pain and swelling Report RIGHT HAND: CLINICAL INDICATION: Pain and swelling. TECHNIQUE: PA, Lat, and oblique. Suboptimal evaluation due to poor patient positioning and inability to extend fingers. COMPARISON: None. FINDINGS: There is no fracture or dislocation. No osseous erosions. No radiopaque foreign bodies. No subcutaneous emphysema. No bone lesion is identified. There is extensive soft tissue swelling about the dorsum of the right hand. IMPRESSION: Suboptimal evaluation due to poor patient positioning and inability to extend fingers. Extensive soft tissue swelling of the dorsum of the right hand. No overt fracture or dislocation. Report Dictated on --- Final --- Dictating Physician: MD MARAVILLA KEVIN Signed Date and Time: 05/10/2020 4:15 pm Signed by: MD MARAVILLA KEVIN Transcribed Date and Time: 05/10/2020 4:16 [place] XR RADIUS ULNA RIGHT (2 VIEW S)on 05-10-2020 Patient Name: ALEX JEFFERSON ---Diagnostic Radiology--- Exam Date/Time 05/10/2020 15:21:02 EDT Exam CR Forearm 2 Views Right Ordering Physician LUCIEN BRIAN Accession Number [id number] CPT4 Codes 77452 () Reason For Exam pain and swelling Report RIGHT FOREARM: CLINICAL INDICATION: Pain and swelling TECHNIQUE: AP and Lateral COMPARISON: None FINDINGS: There is no evidence for fracture or dislocation. No osseous erosions. No radiopaque foreign body. No subcutaneous emphysema. No bone lesion is identified. There is soft tissue swelling the dorsum of the right forearm. IMPRESSION: Soft tissue swelling. No fracture or dislocation. No osseous erosions or radiopaque foreign body. Report Dictated on --- Final --- Dictating Physician: MD MARAVILLA KEVIN Signed Date and Time: 05/10/2020 4:15 pm Signed by: MD MARAVILLA KEVIN Transcribed Date and Time: 05/10/2020 4:16 [place], [place] [facility], [facility] Incoming Radiology Results From [facility] - 05/10/2020 4:17 PM EDT Patient Name: ALEX JEFFERSON ---Diagnostic Radiology--- Exam Date/Time 05/10/2020 15:21:02 EDT Exam CR Forearm 2 Views Right Ordering Physician LUCIEN BRIAN Accession Number [id number] CPT4 Codes 41751 () Reason For Exam pain and swelling Report RIGHT FOREARM: CLINICAL INDICATION: Pain and swelling TECHNIQUE: AP and Lateral COMPARISON: None FINDINGS: There is no evidence for fracture or dislocation. No osseous erosions. No radiopaque foreign body. No subcutaneous emphysema. No bone lesion is identified. There is soft tissue swelling the dorsum of the right forearm. IMPRESSION: Soft tissue swelling. No fracture or dislocation. No osseous erosions or radiopaque foreign body. Report Dictated on --- Final --- Dictating Physician: MD MARAVILLA KEVIN Signed Date and Time: 05/10/2020 4:15 pm Signed by: MD MARAVILLA KEVIN Transcribed Date and Time: 05/10/2020 4:16 [place], [place] Vital Signs Date Time Vital Sign Value Performing Clinician Facility 02-06-2024 12:54-0400 Body temperature 97.8 [degF] [facility] 02-06-2024 12:54-0400 Diastolic blood pressure 78 mm[Hg] [facility] 02-06-2024 12:54-0400 Heart rate 78 /min [facility] 02-06-2024 12:54-0400 Respiratory rate 16 /min [facility] 02-06-2024 12:54-0400 SaO2% (BldA) [Mass fraction] 99 % [facility] 02-06-2024 12:54-0400 Systolic blood pressure 134 mm[Hg] [facility] 02-06-2024 09:38-0400 Body height 213.36 cm [facility] 12-25-2023 14:44-0400 Body temperature 97.4 [degF] [facility] 12-25-2023 14:44-0400 Diastolic blood pressure 78 mm[Hg] [facility] 12-25-2023 14:44-0400 Heart rate 84 /min [facility] 12-25-2023 14:44-0400 Respiratory rate 16 /min [facility] 12-25-2023 14:44-0400 SaO2% (BldA) [Mass fraction] 98 % [facility] 12-25-2023 14:44-0400 Systolic blood pressure 121 mm[Hg] [facility] 12-25-2023 11:32-0400 Body height 213.36 cm [facility] 12-25-2023 11:32-0400 Body mass index (BMI) [Ratio] 29.2 kg/m2 [facility] 12-25-2023 11:32-0400 Body weight 133.1 kg [facility] 04-05-2023 12:42-0400 Body temperature 98.71 [degF] Susy Leiva MD Work Phone: [facility] 04-05-2023 12:42-0400 Diastolic blood pressure 99 mm[Hg] Susy Leiva MD Work Phone: [facility] 04-05-2023 12:42-0400 Heart rate 82 /min Susy Leiva MD Work Phone: [facility] 04-05-2023 12:42-0400 Respiratory rate 20 /min Susy Leiva MD Work Phone: [employer] 04-05-2023 12:42-0400 SaO2% (BldA) [Mass fraction] 98 % Susy Leiva MD Work Phone: [employer] 04-05-2023 12:42-0400 Systolic blood pressure 113 mm[Hg] Susy Leiva MD Work Phone: [employer] 12-08-2020 17:53-0500 BMI (Body Mass Index) 24.91 kg/m2 [employer] Work Phone: 12-08-2020 17:53-0500 Body Temperature 97.2 [degF] [facility]rick [employer] Work Phone: 12-08-2020 17:53-0500 Body weight 113.4 kg [facility]rick [employer] Work Phone: 12-08-2020 17:53-0500 BP Diastolic 102 mm[Hg] [facility] [employer] Work Phone: 12-08-2020 17:53-0500 BP Systolic 132 mm[Hg] [facility]rick [employer] Work Phone: 12-08-2020 17:53-0500 Pulse (Heart Rate) 100 /min Darrick [employer] Work Phone: 12-08-2020 17:53-0500 Pulse Oximetry 100 % [facility] [employer] Work Phone: 12-08-2020 17:53-0500 Respiratory Rate 16 /min [employer] Work Phone: 05-15-2020 17:10-0400 Body Temperature 96.49 [degF] [place] 05-15-2020 17:10-0400 BP Diastolic 81 mm[Hg] [place] 05-15-2020 17:10-0400 BP Systolic 160 mm[Hg] [place] 05-15-2020 17:10-0400 Pulse (Heart Rate) 64 /min Lucien Chery [facility]- [place], [place] 05-15-2020 17:10-0400 Pulse Oximetry 99 % Lucien Chery [facility] [place], [place] 05-15-2020 17:10-0400 Respiratory Rate 17 /min [facility] 05-13-2020 07:48-0400 Height 213.4 cm Lucien Cher[facility], [place] 05-11-2020 01:30-0400 BMI (Body Mass Index) 25.01 kg/m2 Lucien Chery [facility], [place] 05-11-2020 01:30-0400 Body weight 113.85 kg Lucien Chery [facility] [place] Encounters Encounter Date Encounter Type Care Provider Facility Start: 06-01-2024 End: 06-01-2024 Emergency department patient visit Rashad Guillermojay Facility:[facility] Start: 02-06-2024 End: 02-06-2024 Emergency department patient visit [facility] Work Phone: Start: 12-25-2023 End: 12-25-2023 Emergency department patient visit [facility] Work Phone: Start: 04-05-2023 End: 04-06-2023 Emergency department patient visit SUSY LEIVA [facility] Start: 04-05-2023 End: 04-05-2023 Subsequent hospital visit by physician [facility] Xr Portable [facility] Radiology Comment on above: Arrived Start: 04-05-2023 End: 04-05-2023 Emergency department patient visit Susy Leiva MD Work Phone: [facility] ED Comment on above: Cellulitis of left h and (Primary Dx) Start: 07-18-2022 End: 07-18-2022 Emergency department patient visit UNKNOWN PROVIDER [facility] Start: 12-08-2020 End: 12-08-2020 Emergency department patient visit Darrick Souza Work Phone: [facility] ED Comment on above: Rash and other nonsp ecific skin eruption (Primary Dx) Start: 09-29-2020 End: 09-29-2020 Patient encounter procedure External Provider [facility] Start: 09-29-2020 Results Only External Provider Exter nal[facility] Start: 05-10-2020 End: 05-15-2020 Evaluation and management of inpatient Lucien Winifred Flor Work Phone: [facility] [employer] Comment on above: Compartment syndrome of right hand, initial encounter (HCC) (Primary Dx); Right hand pain Procedures Date Procedure Procedure Detail Performing Clinician Start: 12-25-2023 CT of abdomen and pe lvis without contrast Start: 04-05-2023 Radex hand minimum 3 views Susy Leiva MD Work Phone: Start: 12-08-2020 Blood count complete auto&auto difrntl wbc Og Youssef Work Phone: Start: 12-08-2020 Comprehensive metabo lic panel Og Youssef Work Phone: Start: 09-29-2020 EXTERNAL IMAGING Internet Developer al Provider Start: 05-15-2020 Gluc bld gluc mntr d ev cleared fda spec home use Lucien J Flor Work Phone: Start: 05-15-2020 Gluc bld gluc mntr d ev cleared fda spec home use Herrera A [employer] Work Phone: Start: 05-15-2020 Basic metabolic pane l calcium total Jocelyne L Gavin Work Phone: Start: 05-15-2020 Gluc bld gluc mntr d ev cleared fda spec home use Herrera A [employer] Work Phone: Start: 05-15-2020 Basic metabolic pane l calcium total Jocelyne L Gavin Work Phone: Start: 05-14-2020 Gluc bld gluc mntr d ev cleared fda spec home use Herrera A [employer] Work Phone: Start: 05-14-2020 Gluc bld gluc mntr d ev cleared fda spec home use Lucien Winifred Flor Work Phone: Start: 05-14-2020 Radiologic exam ches t single view Kim Schilling Work Phone: Start: 05-14-2020 Gluc bld gluc mntr d ev cleared fda spec home use Lucien [facility] Work Phone: Start: 05-14-2020 COVID-19 Eddie mancilla Work Phone: Start: 05-14-2020 Gluc bld gluc mntr d ev cleared fda spec home use Herrera A [employer] Work Phone: Start: 05-14-2020 Basic metabolic pane l calcium total Jocelyne L Gavin Work Phone: Start: 05-13-2020 Basic metabolic pane l calcium total Jocelyne L Gavin Work Phone: Start: 05-13-2020 Gluc bld gluc mntr d ev cleared fda spec home use Herrera A [employer] Work Phone: Start: 05-13-2020 Gluc bld gluc mntr d ev cleared fda spec home use Herrera A [employer] Work Phone: Start: 05-13-2020 Gluc bld gluc mntr d ev cleared fda spec home use Herrera A [employer] Work Phone: Start: 05-13-2020 Gluc bld gluc mntr d ev cleared fda spec home use Herrera A [employer] Work Phone: Start: 05-13-2020 Basic metabolic pane l calcium total Jocelyne L Gavin Work Phone: Start: 05-12-2020 Basic metabolic pane l calcium total Jocelyne L Gavin Work Phone: Start: 05-12-2020 Gluc bld gluc mntr d ev cleared fda spec home use Herrera A [employer] Work Phone: Start: 05-12-2020 Gluc bld gluc mntr d ev cleared fda spec home use [employer] Work Phone: Start: 05-12-2020 Basic metabolic pane l calcium total Jocelyne L Gavin Work Phone: Start: 05-12-2020 Gluc bld gluc mntr d ev cleared fda spec home use Lucien Vitale [employer] Work Phone: Start: 05-12-2020 Gluc bld gluc mntr d ev cleared fda spec home use [employer] Work Phone: Start: 05-12-2020 Gluc bld gluc mntr d ev cleared fda spec home use Herrera A [employer] Work Phone: Start: 05-12-2020 Basic metabolic pane l calcium total Jocelyne L Gavin Work Phone: Start: 05-12-2020 Hemoglobin glycosylated a1c Merlin Leslie Work Phone: Start: 05-12-2020 Basic metabolic pane l calcium total Jocelyne L Gavin Work Phone: Start: 05-11-2020 Gluc bld gluc mntr d ev cleared fda spec home use [employer] Work Phone: Start: 05-11-2020 OPERATIVE REPORT 3m Sca nning Start: 05-11-2020 Basic metabolic pane l calcium total Jocelyne L Gavin Work Phone: Start: 05-11-2020 End: 05-11-2020 Gluc bld gluc mntr dev cleared fda spec home use Herrera A [employer] Work Phone: Start: 05-11-2020 Gluc bld gluc mntr d ev cleared fda spec home use [employer] Work Phone: Start: 05-11-2020 Assay of osmolality blood [employer] Work Phone: Start: 05-11-2020 Basic metabolic pane l calcium total Jocelyne L Gavin Work Phone: Start: 05-11-2020 Culture bacterial quanttative colony count urine [employer] Work Phone: Start: 05-11-2020 Assay of osmolality urine [employer] Work Phone: Start: 05-11-2020 Assay of urine sodium D eep Latif Work Phone: Start: 05-11-2020 End: 05-11-2020 ADD ON LAB TEST [employer] Work Phone: Start: 05-11-2020 BASIC METABOLIC PANE L W/ REFLEX TO MG FOR LOW K Myles Blair Work Phone: Start: 05-11-2020 Blood count complete auto&auto difrntl wbc Myles Blair Work Phone: Start: 05-11-2020 Creatine kinase total A maranda Blair Work Phone: Start: 05-11-2020 Hemoglobin glycosylated a1c Myles Blair Work Phone: Start: 05-11-2020 Hepatic function panel Myles Blair Work Phone: Start: 05-11-2020 Gluc bld gluc mntr d ev cleared fda spec home use Lucien J [employer] Work Phone: Start: 05-10-2020 Level iv surg pathol ogy gross&microscopic exam Jeffry Ross Ramiro Work Phone: Start: 05-10-2020 Radiologic exam ches t single view Eddie Brennan Work Phone: Start: 05-10-2020 Antibody id rbc anti bodies ea panel ea serum tq Jocelyne Alonso Work Phone: Start: 05-10-2020 Blood typing serologic abo Jocelyne Alonso Work Phone: Start: 05-10-2020 PROTIME/INR & PTT Shaila Alonso Work Phone: Start: 05-10-2020 Ecg routine ecg w/le ast 12 lds w/i&r Eddie Brennan Work Phone: Start: 05-10-2020 Urnls dip stick/tabl et rgnt auto w/o microscopy Lucien Vitale [employer] Work Phone: Start: 05-10-2020 Assay of lactate Rabia Vitale [employer] Work Phone: Start: 05-10-2020 Basic metabolic pane l calcium total Lucien Vitale [employer] Work Phone: Start: 05-10-2020 Blood count complete auto&auto difrntl wbc Lucien Vitale [employer] Work Phone: Start: 05-10-2020 Creatine kinase total N leatha Ray Work Phone: Start: 05-10-2020 Radex forearm 2 views N leatha Ray Work Phone: Start: 05-10-2020 Radex hand minimum 3 views Lucien Ray Work Phone: Plan of Treatment Date Care Activity Detail Author Start: 02-06-2024 [facility] Start: 12-25-2023 [facility] Start: 06-02-2023 Influenza vaccination Influenza Vacc ine (#1) [facility] Start: 05-12-2021 HbA1c (Bld) [Mass fraction] A1C test (Diabetic or Prediabetic) [place], [place] Start: 05-12-2021 Hemoglobin A1c measurement Diabetes: Hemoglobin A1C [facility] Start: 06-09-2020 End: 06-09-2020 Virtual Visit 06/09/2020 Virtual Visit Infectious Diseases Geovanny Cai MD [address] [place] [address] [address] [place] [address] [phone] Infect Disease - [facility] Start: 06-02-2020 Influenza vaccination [place], [place] Start: 12-23-2015 Screening for malign ant neoplasm of colon [place], [place] Start: 12-23-2015 Shingles Vaccine (1 of 2) Shingles V accine (1 of 2) [place] Start: 12-23-2015 SHINGRIX VACCINE (1 of 2) SHINGRIX V ACCINE (1 of 2) [facility] Start: 12-23-2015 Zoster Vaccines (1 of 2) Zoster Vacc joanna (1 of 2) [facility] Start: 2010 DIABETES SCREEN DIABETES SCREEN [facility] Start: 2000 LIPID SCREEN LIPID SCREEN [facility] Start: 1984 DTaP/Tdap/Td vaccine (1 - Tdap) DTaP/Tdap/Td vaccine (1 - Tdap) [place], [place] Start: 1984 DTaP/Tdap/Td Vaccine s (1 - Tdap) DTaP/Tdap/Td Vaccines (1 - Tdap) [facility] Start: 1984 Hepatitis B vaccine (1 of 3 - Risk 3-dose series) Hepatitis B vaccine (1 of 3 - Risk 3-dose series) [place], [place] Start: 1984 Urine microalbumin profile DTAP,TDAP,TD (1 - Tdap) [facility] Start: 12-23-1983 Diabetic microalbumi sierra test Diabetic microalbuminuria test [place], [place] Start: 12-23-1983 HEPATITIS C SCREENING HEPATITIS C SC REENING [facility] Start: 12-23-1983 Hepatitis C screening Hepatitis C Sc reening [facility] Start: 12-23-1983 HIV SCREENING HIV SCREENING [facility] Start: 1980 HIV screening HIV screen [place], [place] Start: 1977 Depression Screening Depression Scre ening [facility] Start: 12-23-1975 Diabetic foot examination [facility] Start: 12-23-1975 Diabetic retinal exam Diabetic retin al exam [place], [place] Start: 12-23-1975 Glaucoma screening Diabetes: R etinopathy Screening [facility] Start: 12-23-1975 Lipid panel Lipid screen [place], [place] Start: 12-23-1975 Preventive dental service Diabetes: Dental Exam [facility] Start: 12-23-1971 Pneumococcal 0-64 ye ars Vaccine (1 of 1 - PPSV23) Pneumococcal 0-64 years Vaccine (1 of 1 - PPSV23) [place], [place] Start: 12-23-1971 Pneumococcal Vaccine : Pediatrics (0 to 5 Years) and At-Risk Patients (6 to 64 Years) (1 - PCV) Pneumococcal Vaccine: Pediatrics (0 to 5 Years) and At-Risk Patients (6 to 64 Years) (1 - PCV) [facility] Start: 1966 MMR Vaccines (1 of 1 - Standard series) MMR Vaccines (1 of 1 - Standard series) [facility] Start: 06-24-1966 COVID-19 Vaccine (#1) COVID-19 Vacci ne (#1) [facility] Start: 1965 Hepatitis B Vaccines (1 of 3 - 3-dose series) Hepatitis B Vaccines (1 of 3 - 3-dose series) [facility] Start: 1965 Hepatitis C screening Hepatitis C sc reen [facility] Work Phone: Start: 1965 HIV screening HIV Screening [facility] Start: 1965 Lipid [facility] Start: 1965 Screening for malign ant neoplasm of colon [facility] Basic metabolic 2000 panel [place], [place] Comment on above: Now Then Every 6hr u ntil discontinued starting 05/11/2020, 11 completed Culture, Anaerobic a nd Aerobic Culture, Anaerobic and Aerobic Microbiology Routine 05/10/2020 11:00 PM EDT [place], [place] Oxygen therapy [[facility] Data Set] Initiate Oxygen Therapy Protocol Respiratory Care Routine Daily until discontinued starting 05/11/2020 [place] Comment on above: Daily until disconti nued starting 05/11/2020 [facility] Phone: Patient referral [facility] Work Phone: POCT Glucose [facility] [place] Comment on above: As Needed until disc ontinued starting 05/11/2020 Now Then Every 4hr u ntil discontinued starting 05/11/2020 4X Daily (AC & HS) u ntil discontinued starting 05/11/2020 Payers Date Payer Category Payer Self-pay [id number] 2022 Medicaid [facility] MEDICAID [facility] MEDICAID OD [id number] 2022-Present [phone] [address] [place] [address] Medicaid HMO [id number] 2022 Medicaid [id number] [address] [facility] [employer] MEDICAID [id number] 2020-Present Medicaid [id number] 2020 Private Health Insurance [id number] 2014 Unknown [employer] D *DONOT USE* [id number] 1965 Unknown [id number] Private Health Insurance Unknown [id number] Unknown [id number] Unknown [id number] Social History Date Type Detail Facility Start: 05-11-2020 End: 12-08-2020 Tobacco smoking status NHIS Current every day smoker [place], [place] History of tobacco use Cigarette Smoker [place] Start: 05-11-2020 End: 12-08-2020 Cigarettes smoked current (pack per day) - Reported [place], [place] Start: 05-11-2020 End: 12-08-2020 Tobacco use and exposure Never used [place] Start: 05-11-2020 End: 04-05-2023 Alcohol intake Ex-drinker (finding) [facility] Start: 1965 Sex Assigned At Not on file [place], [place] Start: 03-26-2023 End: 04-05-2023 Exposure to SARS-CoV-2 (event) Not sure [place], [place] Gender identity Not on file [facility] Start: 12-25-2023 End: 02-06-2024 Tobacco smoking status NHIS Unknown if ever smoked [facility] Start: 1965 Sex Assigned At Male [facility] Discharge summary 02-06-2024 Note Date & Type Note Facility 02-06-2024 Discharge summary Note Date/Time February 06, 2024 10:18a m [facility] Medical Records Department [address] [place] [address] Emergency Department Summary 02/06/24 MR#: [id number] Acct: [id number] Name: HANNAH JEFFERSON Rep #:[id number] : 1965 58 From: Christopher Conti MD PCP: Care Physician,No Primary Status :REG ER Location: ED HPI History of Present Illness Chief Complaint: Eye Problem Detail of Chief Complaint: Left eye swelling and discomfort. Informant: patient Onset/Context/Timing Location: Left Eye Onset: Today Context: Gradual Onset Timing: Continuous Current Severity: Mild Maximum Severity: Mild Associated Symptoms Associated Symptoms - Eyes: Burning and Photophobia History of injury: No Visual correction: Glasses (Reading glasses. No contacts.) Narrative Narrative: 58-year-old male uses reading glasses but does not wear contacts never had eye surgery. 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 Said he wears a large shield so he does not think there is any way got a foreign body in his left eye. Today he awoke with left eye pain and swelling with his eye closed. Does not believe there is any chemicals in the eye. Said this is never happened before. Denies any direct trauma. Prior similar symptoms: No Recent Illness/Hospitalization: No PFSH PFSH Medical History no medical history Home Medications cephalexin 500 mg capsule 500 mg PO Q6H 10 days #40 caps 02/06/24 [Rx Last Taken Unknown] Allergy/AdvReac Type Severity Reaction Status Date / Time No Known Allergies Allergy Verified 02/06/24 09:38 Social History Smoking Status: Current every day smoker tobacco type: cigarettes ROS ROS ED ROS Narrative Denies recent illness Review of Systems ROS Unobtainable: Denies due to encephalopathy Constitutional Constitutional ED: Denies chills or fever(s) Eyes Eyes: Denies blurry vision ENT ENT ED: Denies ear pain or rhinorrhea Cardiovascular Cardiovascular: Denies chest pain Respiratory/Chest Respiratory/Chest: Denies cough or dyspnea Gastrointestinal Gastrointestinal: Denies abdominal pain, diarrhea, nausea or vomiting Genitourinary Genitourinary ED: Denies dysuria or hematuria Musculoskeletal Musculoskeletal: Denies arthralgias or back pain Integumentary Denies abscess or Abrasions Neurologic Neurologic: Denies headache(s) Psychiatric Psychiatric: Denies anxiety Endocrine Endocrinology: Denies polydipsia Hematologic/Lymphatic Hematologic/Lymphatic: Denies easy bleeding, easy bruising or lymphadenopathy Allergic/Immunologic Allergic/Immunologic ED: Denies mouth swelling, tongue swelling or urticaria EXAM Physical Exam Narrative Exam Narrative: 58-year-old male vital signs stable afebrile. HEENT exam pupils round react to light his motions are intact. His left eye is closed but unable to open it. There is no discharge. I will do a more formal eye exam once I get his eye locally anesthetized with tetracaine. No facial droop. Lungs clear to auscultation bilaterally. Heart regular rhythm. No murmur. Abdomen soft nontender. Moving all 4 extremities. He has weakness which is chronic and Lakiuse of the right hand from a prior infection and surgery. Neurologically is awake alert. Answering questions following commands. Repeat exam I placed tetracaine in his left eye and headache slit-lamp exam withfluorescein. I saw no foreign body. No corneal abrasion. Upper and lower lidswere everted were okay. On his right upper medial eyebrow appears to be an early skin subcu abscess. It is not fluctuant it is hard. I did not think I would get anything out of I drained it and patient did not want me to attempt todrain it if we integrating anything out of it. He will be started on Keflex 4 times a day. Return if it comes to ahead or gets larger to be drained. Warm compresses. Follow-up with the eye doctor if his eyes not improving. He did have visual acuity done. It was 0 in the affected left eye 20/25 in the right eye. And he said he could not do both eyes. Const Vital Signs: 02/06/24 09:38 Temperature 98 F Temperature Source Temporal Pulse Rate 96 Respiratory Rate 18 Blood Pressure 170/94 H Blood Pressure Mean 119 Pulse Ox 100 Oxygen Delivery Method Room Air Positive well nourished and well developed; Negative for obese, cachectic, contractures or unkempt General Appearance ED: well developed and NAD; Negative for unkempt, cachectic or contractures Nutritional Appearance: Negative for cachectic or obese HEENT Denies other atraumatic; Negative for trauma, tenderness or other Eyes Eyes Narrative: Pupils are reactive light. Left eye closed. They are open. He is photophobic. There is no orbital or periorbital cellulitis. No preauricular lymphadenopathy. No proptosis. Neck no lymphadenopathy, supple and no JVD General: Negative for tenderness Resp normal respiratory effort, no retractions, no use of accessory muscles and clearto auscultation bilaterally Cardio regular rate, regular rhythm, S1 normal heart sound, S2 normal heart sound and no murmurs GI non-tender, non-distended and no masses Inspection: Negative for other Auscultation: normoactive bowel sounds Palpation: soft Back/Spine no CVA tenderness General Back: Negative for CVA tenderness Extremity Negative for normal to inspection Extremity Narrative: Chronic weakness right hand due to prior infection surgery. Neuro oriented x3 Sensorium / Orientation: alert, oriented to person, oriented to place and oriented to time Motor Exam: strength 5/5 throughout Psych Appearance: Negative for unkempt Attitude: No agitated Mood & Affect: Negative for depressed, anxious or tearful Skin no wounds Lesions: no lesions Rashes: no rashes Trauma: Negative for abrasion Image ED - Eye Diagram: 1. Abscess medial aspect of the left upper eyebrow. The left eye exam itself there is no corneal abrasion or foreign body. No signs of infection. MDM MDM MDM Narrative Medical decision making narrative: Patient has discomfort in his left eye with swelling. Infection versus foreign body. Slit-lamp examination be performed after he received tetracaine to his left eye and fluorescein. Visual acuity be obtained. Along patient also has a abscess on his left medial forehead just above his eyebrow. It is firm nothing to drain at this time. There is no signs of shingles. Patient be discharged home. Keflex 4 times a day. First dose given here. Nothing to I&D at this time. Outpatient follow-up with ophthalmology if not improving. Return if the abscess gets bigger to be drained. History & Record Review Discussion w/independent historian: Patient Discharge Plan Triage Chief Complaint: Eye Problem ED Provider: Christopher Conti Dx/Rx/DC Orders Clinical Impression: Abscess Instructions: ED Abscess Antibiotic Treatment Only Prescriptions: New cephalexin 500 mg capsule 500 mg PO Q6H 10 Days Qty: 40 0RF Primary Care Provider: Care Physician,No Primary Referrals: Deedee Ray MD [Med Staff - Active Staff] - 3-5 Days if not improving Care Physician,No Primary [Primary Care Provider] - Activity Restrictions/Additional Instructions: Your eye exam does not show foreign body, infection or scratch to your eye. There appears to be an abscess on your left forehead that we will treat with antibiotics.. There is nothing to drain at this time. If the abscess gets larger on her left forehead then we will need to drain it. Warm compresses. The antibiotic Keflex1 pill 4 times a day till gone. The should progressively improve if it is not follow-up with the eye doctor. Disposition Disposition: Home, Self Care What to do if you have Problems For any increased pain, shortness of breath, bleeding, nausea or vomiting, chestpain, or any unexpected problems, contact your Primary Care Provider. Call [facility] ([phone]) or report to the closest Emergency Room. Call 911 if necessary. 02/06/24 1230 <Electronically signed by Christopher Conti MD> Ambrocioigner Signature (if applicable): CC: No Primary Care Physician ~ Signed [facility] Work Phone: Discharge summary 12-25-2023 Note Date & Type Note Facility 12-25-2023 Discharge summary Note Date/Time December 25, 2023 12:10pm [facility] Medical Records Department [address] [place] [address] Emergency Department Summary 12/25/23 MR#: [id number] Acct: [id number] Name: HANNAH JEFFERSON Rep #:[id number] : 1965 58 From: Myles Rivera MD PCP: Care Physician,No Primary Status :REG ER Location: ED HPI HPI - GI History of Present Illness Chief Complaint: Abd Pain Narrative Narrative: 58-year-old male states 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 He did think that he may have lifted something incorrectly and had a twinge of pain in his left low back, but it worsened today. He states it took him about an hour to get out of bed. When he had a bowel movement, he felt a tearing sensation in his left flank. It radiates from his low back towards the front. He had a normal bowel movement today. He denies any fevers or chills, no saddle anesthesia, no loss of bowel or bladder. He does state that when he pressed on his low back it doesnot hurt and it feels like there is pain that is sharp and stabbing more on theinside. No exacerbating or alleviating factors. He does relate history that remotely he had a kidney stone. [facility] Medical History no medical history Home Medications cyclobenzaprine 10 mg tablet 10 mg PO TID PRN Muscle Spasm #20 TABLETS 12/25/23 [Rx Last Taken Unknown] naproxen 500 mg tablet (Naprosyn) 500 mg PO BID PRN pain #20 tabs 12/25/23 [Rx Last Taken Unknown] Allergy/AdvReac Type Severity Reaction Status Date / Time No Known Allergies Allergy Verified 12/25/23 11:33 Social History Smoking Status: Current every day smoker tobacco type: cigarettes ROS ROS ED ROS Narrative Constitutional: No fever, no chills. HEENT: No sore throat. No neck pain. No loss of vision. No rhinorrhea. Cardiovascular: No chest pain. No palpitations. No pedal edema. Respiratory: No cough, no shortness of breath. Abdominal: Left lower quadrant abdominal pain. No nausea. No vomiting. Genitourinary: No dysuria. No hematuria. Positive left low back to left flank pain. Musculoskeletal: No myalgias. No arthralgias. Neurologic: No headaches. No dizziness. No lightheadedness. Skin: No rash. No change in color. Psychiatric: No depression. No anxiety. EXAM Physical Exam Narrative Exam Narrative: Afebrile. Vital signs noted. HEENT: Normocephalic. Atraumatic. PERRL, EOMI. Neck soft and supple. No pointtenderness or step off. Cardiovascular: Regular rate and rhythm. No murmurs, rubs, or gallops appreciated. Respiratory: No tachypnea. Lungs clear to auscultation bilaterally. Gastrointestinal: Abdomen soft, nontender, with normoactive bowel sounds. No rebound or guarding. Neurological: Awake. Alert. Nonfocal, nonlateralizing. Skin: No rash. Normal color. No pallor. Musculoskeletal: No pedal edema. Full range of motion extremities. Const Vital Signs: 12/25/23 11:32 12/25/23 13:32 Temperature 98 F Temperature Source Temporal Pulse Rate 97 89 Respiratory Rate 16 16 Blood Pressure 131/89 H 117/78 Blood Pressure Mean 103 91 Pulse Ox 100 97 Oxygen Delivery Method Room Air Room Air MDM MDM MDM Narrative Medical decision making narrative: In the differential diagnosis is ureterolithiasis versus diverticulitis versus bowel obstruction. History and physical does not certainly support a bowel obstruction. He may be having more of a lumbar radiculopathy and musculoskeletal low back pain as well, he was administered Toradol and a bolus of IV fluids for analgesia. Comprehensive workup was pursued. I do feel that CT flank is indicated to look for ureteral stone and it could also diagnose diverticulitis as well. I reviewed his laboratory work and he has normal white count of 7.1, hemoglobin normal at 16.2, hematocrit 48.0, platelet count normal at 248. Electrolyte panel shows sodium slightly low at 135 which I think is nonspecific, normal potassium of 4.1, BUN normal at 9, creatinine 0.94. AST is normal at 17 with ALT 25 and alk phos normal at 91. Urinalysis was obtained and reviewed and there is no evidence of infection or blood. I do not feel that antibiotics are indicated have lower suspicion for ureterolithiasis at this time. I reviewed the radiology report of the CT of the abdomen and pelvis without contrast which does not show any evidence of ureteral stone, no acute process. The appendix isvisualized and is noninflamed. Additionally, his flank pain is on the left side. He does have an aortic aneurysm and dilation of the right proximal iliac. Smoking cessation was discussed with the patient. At this point in time, I am unsure as to the cause of his left flank pain but think it may be more musculoskeletal back pain. After he had received Toradol, upon repeat examination at approximately 1430, he feels improved. I do not feel he requiresobservation or admission at this time. He is able to transfer from the bed. Hewas written prescriptions for Flexeril and naproxen and was referred to a primary care provider. Return instructions to the emergency department were reviewed. Disposition is discharged home in stable condition. History & Record Review Discussion w/independent historian: Patient Additional record(s) reviewed:: Prior ED visit Lab Data Attestation: I reviewed the patient's lab results. Labs: Laboratory Results - last 24 hr 12/25/23 12/25/23 12:05 12:30 WBC 7.1 RBC 5.40 Hgb 16.2 Hct 48.0 MCV 88.9 MCH 30.0 MCHC 33.8 RDW Std Deviation 42.1 RDW Coeff of Cherri 12.9 Plt Count 248 MPV 9.7 Immature Gran % (Auto) 0.100 Neut % (Auto) 65.7 Lymph % (Auto) 23.7 Brown % (Auto) 7.4 Eos % (Auto) 1.8 Baso % (Auto) 1.3 H Absolute Neuts (auto) 4.7 Absolute Lymphs (auto) 1.69 Nucleated RBC % 0 Sodium 135 L Potassium 4.1 Chloride 104 Carbon Dioxide 27.0 Anion Gap 4 L BUN 9 Creatinine 0.94 Estim Creat Clear Calc 140.98 Est GFR (MDRD) Af Amer 107 Est GFR (MDRD) Non-Af 88 BUN/Creatinine Ratio 9.6 L Glucose 145 H Calcium 8.9 Total Bilirubin 0.40 AST 17 ALT 25 Alkaline Phosphatase 91 Total Protein 7.2 Albumin 3.8 Globulin 3.4 Albumin/Globulin Ratio 1.1 Urine Color Yellow Urine Clarity Clear Urine pH 7.0 Ur Specific [place] 1.010 Urine Protein 30 H Urine Glucose (UA) Normal Urine Ketones 5 H Urine Occult Blood 10 H Urine Nitrite Negative Urine Bilirubin Negative Urine Urobilinogen 4 H Ur Leukocyte Esterase 100 H Urine RBC 0 SEEN Urine WBC 0-5 SEEN Ur Squamous Epith Cells 0-5 SEEN Ur Renal Epithelial Cell 0-5 SEEN Urine Bacteria 0 SEEN Urine Mucus 0 SEEN Radiography Diagnostic Testing: Clinical Impression(s) from Imaging Studies Abdomen/Pelvis CT 12/25/23 13:02 IMPRESSION: Atrophic changes of the abdominal aorta with minimal aneurysmal dilatation of the distal abdominal aorta with a transverse dimension of 2.9 cm. Dilatation of the proximal portion of the right common iliac artery. Mild prostatic enlargement. Interval increase in size of the previously seen cyst in the dome of the right lobe of the liver. Correlation with ultrasound is recommended. Electronically Signed: Nathaniel Feng MD at 13:41 EDT , Discharge Plan Triage Chief Complaint: Abd Pain ED Provider: Myles Rivera Dx/Rx/DC Orders Clinical Impression: Low back pain, Left flank pain Instructions: ED Back Pain (Acute or Chronic), ED Flank Pain, Uncertain Cause Prescriptions: New cyclobenzaprine 10 mg tablet 10 mg PO TID PRN (Reason: Muscle Spasm) Qty: 20 0RF naproxen [Naprosyn] 500 mg tablet 500 mg PO BID PRN (Reason: pain) Qty: 20 0RF Primary Care Provider: Care Physician,No Primary Referrals: Tommie Burr MD [Med Staff - Active Staff] - 1 Week if not improving Care Physician,No Primary [Primary Care Provider] - Disposition Disposition: Home, Self Care What to do if you have Problems For any increased pain, shortness of breath, bleeding, nausea or vomiting, chestpain, or any unexpected problems, contact your Primary Care Provider. Call [facility] ([phone]) or report to the closest Emergency Room. Call 911 if necessary. 12/25/23 1433 <Electronically signed by Myles Rivera MD> Cosigner Signature (if applicable): CC: No Primary Care Physician ~ Signed [facility] Work Phone: Emergency department Note 04-05-2023 Susy Leiva MD - 04/05/2023 12:28 PM EDTKizelalem Becerra LPN - 04/05/2023 12:28 PM EDT Note Date & Type Note Facility 04-05-2023 Emergency departm ent Note Emergency Department Encounter Pt Name: Alex Jefferson Birthdate 1965 Date of evaluation: 04/05/2023 Provider: SUSY LEIVA MD CHIEF COMPLAINT No chief complaint on file. HISTORY OF PRESENT ILLNESS HPI Alex Jefferson is a 57 y.o. male with history that includes infection and compartment syndrome of the right hand presents to the emergency department for evaluation of redness and swelling and pain over the left fourth and fifth MCP joints that he first noticed this morning when he was reaching into his left chest pocket to pull out a pack of cigarettes. No fever or chills. Does not recall any trauma. Given his history with the right hand, he wanted to be sure this was not an infection now improving in the left hand. Nursing Notes were reviewed. History reviewed. No pertinent past medical history. REVIEW OF SYSTEMS Review of Systems Several elements of the ROS reviewed and otherwise acutely negative except as in the HPI. PHYSICAL EXAM ED Triage Vitals [04/05/23 1242] Temp Heart Rate Resp BP 37.1 C (98.7 F) 82 20 (!) 113/99 SpO2 Temp Source Heart Rate Source Patient Position 98 % Oral Monitor Sitting BP Location FiO2 (%) Right arm -- Physical Exam Constitutional: General: He is not in acute distress. Appearance: He is not ill-appearing. Cardiovascular: Rate and Rhythm: Normal rate and regular rhythm. Comments: 2+ left radial pulse Musculoskeletal: Comments: Full range of motion of the left fourth and fifth MCP joints with some discomfort. Normal range of motion of the other joints of the left hand and wrist. Mild tenderness at the left fourth and fifth MCP joints to palpation. Skin: General: Skin is warm and dry. Capillary Refill: Capillary refill takes less than 2 seconds. Comments: Mild erythema and swelling without fluctuance or new skin lesions over the left dorsal 4th and 5th MCP joints. Neurological: Mental Status: He is alert. Psychiatric: Mood and Affect: Mood normal. EMERGENCY DEPARTMENT COURSE and DIFFERENTIAL DIAGNOSIS/MDM: Vitals: Vitals: 04/05/23 1242 BP: (!) 113/99 BP Location: Right arm Patient Position: Sitting Pulse: 82 Resp: 20 Temp: 37.1 C (98.7 F) TempSrc: Oral SpO2: 98% The patient presented with a chief complaint of redness and swelling of the left hand. There is no evidence of abscess, but we will obtain an x-ray to assess for evidence of fracture. Otherwise, this appears most consistent with gout. Cannot exclude early cellulitis and given his history, I will prescribe some antibiotics to cover for strep and MSSA. Plan to follow-up with Ortho hand or return to the ED if symptoms progress or worsen. I reviewed the chart noting that he grew MSSA in the right hand. ED Course as of 04/05/23 1830 Wed Apr 05, 2023 1340 XR hand 3+ views left 1. 2-3 mm linear radiopaque foreign body projecting within the volar soft tissues overlying the proximal 1/3 of the fifth metacarpal. 2. 2-3 mm radiopaque foreign body projecting within the soft tissues of the first webspace. 3. No additional radiopaque foreign body. No soft tissue gas by radiograph. [AK] ED Course User Index [AK] Susy Leiva MD Diagnoses as of 04/05/231829 Cellulitis of left hand CONSULTS: None PROCEDURES: Unless otherwise noted below, none Procedures DISPOSITION/PLAN Discharge 04/05/2023 01:40:25 PM PATIENT REFERRED TO: [facility] [address] [place] [id number] Schedule an appointment as soon as possible for a visit in 2 days DISCHARGE MEDICATIONS: ED Prescriptions Medication Sig Dispense Start Date End Date Auth. Provider cephalexin (Keflex) 500 MG capsule Take 1 capsule (500 mg) by mouth in the morning and 1 capsule (500 mg) at noon and 1 capsule (500 mg) in the evening and 1 capsule (500 mg) before bedtime. Do all this for 10 days. 40 capsule 04/05/2023 04/15/2023 Susy Leiva MD Discharge Medication List as of 04/05/2023 1:48 PM START taking these medications Details cephalexin (Keflex) 500 MG capsule Take 1 capsule (500 mg) by mouth in the morning and 1 capsule (500 mg) at noon and 1 capsule (500 mg) in the evening and 1 capsule (500 mg) before bedtime. Do all this for 10 days., Starting 04/05/2023, Until 04/15/2023, Normal Susy Leiva MD Emergency Medicine Susy Leiva MD 04/05/231829 Pt presents to the ED with acute left hand swelling. Pt states he woke up with slight discomfort and was doing yard work. When he noticed swelling. Pt states he had similar sx with his right hand. Pt was able to walk back to the unit without any difficulty. Pt is alert and oriented x's 4. Pt call light is within reach documented in this encounter [facility] Emergency department Triage note 04-05-2023 Codi Becerra LPN - 04/05/2023 12:28 PM EDT Note Date & Type Note Facility 04-05-2023 Emergency departm ent Triage note Pt presents to the ED with acute left hand swelling. Pt states he woke up with slight discomfort and was doing yard work. When he noticed swelling. Pt states he had similar sx with his right hand. Pt was able to walk back to the unit without any difficulty. Pt is alert and oriented x's 4. Pt call light is within reach [facility] Physician Emergency department Note 04-05-2023 Susy Leiva MD - 04/05/2023 12:28 PM EDT Note Date & Type Note Facility 04-05-2023 Physician Emergen cy department Note Emergency Department Encounter Pt Name: Alex Jefferson Birthdate 1965 Date of evaluation: 04/05/2023 Provider: SUSY LEIVA MD CHIEF COMPLAINT No chief complaint on file. HISTORY OF PRESENT ILLNESS HPI Alex Jefferson is a 57 y.o. male with history that includes infection and compartment syndrome of the right hand presents to the emergency department for evaluation of redness and swelling and pain over the left fourth and fifth MCP joints that he first noticed this morning when he was reaching into his left chest pocket to pull out a pack of cigarettes. No fever or chills. Does not recall any trauma. Given his history with the right hand, he wanted to be sure this was not an infection now improving in the left hand. Nursing Notes were reviewed. History reviewed. No pertinent past medical history. REVIEW OF SYSTEMS Review of Systems Several elements of the ROS reviewed and otherwise acutely negative except as in the HPI. PHYSICAL EXAM ED Triage Vitals [04/05/23 1242] Temp Heart Rate Resp BP 37.1 C (98.7 F) 82 20 (!) 113/99 SpO2 Temp Source Heart Rate Source Patient Position 98 % Oral Monitor Sitting BP Location FiO2 (%) Right arm -- Physical Exam Constitutional: General: He is not in acute distress. Appearance: He is not ill-appearing. Cardiovascular: Rate and Rhythm: Normal rate and regular rhythm. Comments: 2+ left radial pulse Musculoskeletal: Comments: Full range of motion of the left fourth and fifth MCP joints with some discomfort. Normal range of motion of the other joints of the left hand and wrist. Mild tenderness at the left fourth and fifth MCP joints to palpation. Skin: General: Skin is warm and dry. Capillary Refill: Capillary refill takes less than 2 seconds. Comments: Mild erythema and swelling without fluctuance or new skin lesions over the left dorsal 4th and 5th MCP joints. Neurological: Mental Status: He is alert. Psychiatric: Mood and Affect: Mood normal. EMERGENCY DEPARTMENT COURSE and DIFFERENTIAL DIAGNOSIS/MDM: Vitals: Vitals: 04/05/23 1242 BP: (!) 113/99 BP Location: Right arm Patient Position: Sitting Pulse: 82 Resp: 20 Temp: 37.1 C (98.7 F) TempSrc: Oral SpO2: 98% The patient presented with a chief complaint of redness and swelling of the left hand. There is no evidence of abscess, but we will obtain an x-ray to assess for evidence of fracture. Otherwise, this appears most consistent with gout. Cannot exclude early cellulitis and given his history, I will prescribe some antibiotics to cover for strep and MSSA. Plan to follow-up with Ortho hand or return to the ED if symptoms progress or worsen. I reviewed the chart noting that he grew MSSA in the right hand. ED Course as of 04/05/231829 Wed Apr 05, 2023 1340 XR hand 3+ views left 1. 2-3 mm linear radiopaque foreign body projecting within the volar soft tissues overlying the proximal 1/3 of the fifth metacarpal. 2. 2-3 mm radiopaque foreign body projecting within the soft tissues of the first webspace. 3. No additional radiopaque foreign body. No soft tissue gas by radiograph. [AK] ED Course User Index [AK] uSsy Leiva MD Diagnoses as of 04/05/231829 Cellulitis of left hand CONSULTS: None PROCEDURES: Unless otherwise noted below, none Procedures DISPOSITION/PLAN Discharge 04/05/2023 01:40:25 PM PATIENT REFERRED TO: [facility] [address] [place] [id number] Schedule an appointment as soon as possible for a visit in 2 days DISCHARGE MEDICATIONS: ED Prescriptions Medication Sig Dispense Start Date End Date Auth. Provider cephalexin (Keflex) 500 MG capsule Take 1 capsule (500 mg) by mouth in the morning and 1 capsule (500 mg) at noon and 1 capsule (500 mg) in the evening and 1 capsule (500 mg) before bedtime. Do all this for 10 days. 40 capsule 04/05/2023 04/15/2023 Susy Leiva MD Discharge Medication List as of 04/05/2023 1:48 PM START taking these medications Details cephalexin (Keflex) 500 MG capsule Take 1 capsule (500 mg) by mouth in the morning and 1 capsule (500 mg) at noon and 1 capsule (500 mg) in the evening and 1 capsule (500 mg) before bedtime. Do all this for 10 days., Starting 04/05/2023, Until 04/15/2023, Normal Susy Leiva MD Emergency Medicine Susy Leiva MD 04/05/23 1830 [facility] Evaluation note Note Date & Type Note Facility Evaluation note Diagnosis Cellulitis of left hand- Primary documented in this encounter [facility] Evaluation note Note Date & Type Note Facility Evaluation note No assessment information availa [facility] Work Phone: Hospital Discharge instructions Attachments Note Date & Type Note Facility Hospital Discharge instructions The following attachments cannot be sent through Care Everywhere.Cellulitis (Skin Infection) Discharge Instructions, Adult (Australian)documented in this encounter [facility] Discharge instructions Note Date & Type Note Facility Hospital Discharge instructions Additional Instructions Your eye exam does not show foreign body, infection or scratch to your eye. There appears to be an abscess on your left forehead that we will treat with antibiotics.. There is nothing to drain at this time. If the abscess gets larger on her left forehead then we will need to drain it. Warm compresses. The antibiotic Keflex 1 pill 4 times a day till gone. The should progressively improve if it is not follow-up with the eye doctor. [facility] Work Phone: Reason for referral (narrative) Consultation (Urgent) - Pending Review Note Date & Type Note Facility Reason for referral (narrati ve) Specialty Diagnoses / Procedures Referred By Massiel howard Referred To Contact Hand Surgery / Orthopedic Surgery Diagnoses Cellulitis of left hand Procedures DC OFFICE/OUTPATIENT NEW HIGH MDM 60-74 MINUTES Susy Leiva MD [address] [place] [address] [facility] [address] [place] [address] Referral ID Status Reason Start Date Expiration Date Visits Requested Visits Authorized [id number] Pending Review Specialty Services Required 04/05/2023 04/04/2024 1 1 [facility] Discharge Instructions * Discharge Instr - MY* Justine Ramos RN - 05/15/2020 2:59 PM EDT Continuity of Care Form Patient Name: Alex Jefferson : 1965 Admit date: 05/10/2020 Discharge date: 05/15/2020 Code Status Order: Full Code Advance Directives: Admitting Physician: Herrera Ornelas DO PCP: No primary care provider on file. Discharging Nurse: ADELINA Discharging Hospital Unit/Room#: [id number] Discharging Unit Emergency Contact: Extended Emergency Contact Information Primary Emergency Contact: erick trimble Relation: Brother/Sister Preferred language: [place] Line Controller needed? No Past Surgical History: Past Surgical History: Procedure Laterality Date APPENDECTOMY OTHER SURGICAL HISTORY 05/10/2020 fasciotomy OTHER SURGICAL HISTORY Right 05/11/2020 repeat i and d of right hand Immunization History: There is no immunization history on file for this patient. 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 Type 2 diabetes mellitus with hyperglycemia, without long-term current use of insulin (HCC) E11.65 Elevated CK R74.8 Hyponatremia E87.1 Pyuria- asymptomatic R82.81 Necrotizing fasciitis (HCC) M72.6 Abscess of right hand L02.511 Septic arthritis of right wrist (HCC) M00.9 Right hand pain M79.641 MSSA (methicillin susceptible Staphylococcus aureus) A49.01 Isolation/Infection: Isolation No Isolation Patient Infection Status Infection Onset Added Last Indicated Last Indicated By Review Planned Expiration Resolved Resolved By None active Resolved COVID-19 Rule Out 05/14/20 05/14/20 05/14/20 COVID-19 (Ordered) 05/14/20 Sharon Calle RN 05/14/2020 COVID not detected Nurse Assessment: Last Vital Signs: BP (!) 152/88 Pulse 64 Temp 95.9 F (35.5 C) (Temporal) Resp 17 Ht 7' (2.134 m) Wt 251 lb (113.9 kg) SpO2 98% BMI 25.01 kg/m Last documented pain score (0-10 scale): Pain Level: 9 Last Weight: Wt Readings from Last 1 Encounters: 05/11/20 251 lb (113.9 kg) Mental Status: oriented, alert, coherent and thought processes intact IV Access: - PICC - site L Basilic, insertion date: 05/14/2020 Nursing Mobility/ADLs: Walking Assisted Transfer Assisted Bathing Independent Dressing Independent Toileting Independent Feeding Independent Learning Officer Assisted Med Delivery whole Wound Care Documentation and Therapy: Negative Pressure Wound Therapy Hand Anterior;Right (Active) $ Standard NPWT <=50 sq cm PER TX $ Yes 05/15/20 1200 $ Standard NPWT >50 sq cm PER TX $ Yes 05/13/20 1025 Wound Type Surgical 05/15/20 1200 Unit Type MILLER 05/14/20 0105 Dressing Type Other (Comment) 05/14/20 0830 Cycle Continuous 05/14/201944 Target Pressure (mmHg) 125 05/14/20 194 Irrigation Solution Sodium chloride 0.9% 05/11/20 1825 Dressing Status Clean;Dry;Intact 05/14/201944 Dressing Changed Changed/New 05/15/20 1200 Drainage Amount None 05/14/20 194 Output (ml) 0 ml 05/15/20 0608 Wound Assessment Other (Comment) 05/14/201944 Carolyn-wound Assessment Dry;Intact 05/14/201944 Number of days: 4 Elimination: Continence: Bowel: Yes Bladder: Yes Urinary Catheter: None Colostomy/Ileostomy/Ileal Conduit: No Date of Last BM: 05/14/2020 Intake/Output Summary (Last 24 hours) at 05/15/2020 1455 Last data filed at 05/15/2020 0608 Gross per 24 hour Intake 2200 ml Output 0 ml Net 2200 ml I/O last 3 completed shifts: In: 2200 [P.O.:1200; I.V.:1000] Out: 0 Safety Concerns: At Risk for Falls Impairments/Disabilities: None Nutrition Therapy: Current Nutrition Therapy: - Oral Diet: Carb Control 5 carbs/meal (2000kcals/day) Routes of Feeding: Oral Liquids: Thin Liquids Daily Fluid Restriction: no Last Modified Barium Swallow with Video (Video Swallowing Test): not done Treatments at the Time of Hospital Discharge: Respiratory Treatments: Oxygen Therapy: is not on home oxygen therapy. Ventilator: - No ventilator support Rehab Therapies: Physical Therapy, Occupational Therapy and antibiotics Weight Bearing Status/Restrictions: NWB RUE Other Medical Equipment (for information only, NOT a DME order): hospital bed Other Treatments: Patient's personal belongings (please select all that are sent with patient): None RN SIGNATURE: CASE MANAGEMENT/SOCIAL WORK SECTION Inpatient Status Date: 05/10/20 Readmission Risk Assessment Score: Readmission Risk Risk of Unplanned Readmission: 8 Discharging to Facility/ Agency Name: [facility] Address:[address] [place] [address] [place] [address] Dialysis Facility (if applicable) Name: Address: Dialysis Schedule: Phone: Fax: [employer]/Auto Hauler signature: {Esignature:[id number]}. ICIAN SECTION Prognosis: Good Condition at Discharge: Stable Rehab Potential (if transferring to Rehab): Good Recommended Labs or Other Treatments After Discharge: PT/OT, antibiotics Physician Certification: I certify the above information and transfer of Alex Jefferson is necessaryfor the continuing treatment of the diagnosis listed and that he requires Assisted Facility for less 30 days. Update Admission H&P: No change in H&P PHYSICIAN SIGNATURE: * Additional Instructions* Komal Flores, [employer]KH[employer]ED[employer] - [facility] MECHANIC - 05/10/2020 General Orthopedic Discharge Instructions The following instructions have been prepared to help you when you leave the hospital. These guidelines are for the post-surgery period. Activity: Ease into normal activity as tolerated. Weightbearing status: non weight bearing right hand Medications: see medication instructions. Please be sure to read and understand the information provided by your pharmacy. Ask your Pharmacist if any questions. Wound Care and Hygiene: -Wash hands before touching or changing dressings -Do Not touch incision -Keep wound vac in place Call Your Doctor for: -Excessive bleeding/swelling of incision -Fever with temperature above 101 F Anesthesia Precautions: -Do Not operate any vehicle (automobile, bicycle, motorcycle) or power tools for 24 hours -Do Not drink alcoholic beverages for 24 hours -As precaution to prevent post-operative nausea and vomiting, start your diet with liquids, then progress to light foods. If tolerated, resume normal diet. Additional Instructions: Please take all of your antibiotics as prescribed. Contact your surgeon's office (Dr. Serrano) to set up an appointment in 1 weeks, or if you have any problems or questions. DIABETIC INSTRUCTIONS Consume no more than 45-60 grams of Carbohydrates per meal. Hypoglycemia (Low Blood Glucose) Hypoglycemia is a condition characterized by abnormally low blood glucose (blood sugar) levels, usually less than 70 mg/dlX. However, it is important to talk to your health care provider about your individual blood glucose targets, and what level is too low for you. Hypoglycemia may also be referred to as an insulin reaction, or insulin shock. Hypoglycemic symptoms are important clues that you have low blood glucose. Each person's reaction to hypoglycemiaX is different, so it's important that you learn your own signs and symptoms when yourblood glucose is low. The only sure way to know whether you are experiencing hypoglycemia is to check your blood glucose,if possible. If you are experiencing symptoms and you are unable to check your blood glucose for any reason, treat the hypoglycemia. Severe hypoglycemia has the potential to cause accidents, injuries, coma, and . Signs and Symptoms of Hypoglycemia (happen quickly) ? Shakiness ? Nervousness or anxiety ? Sweating, chills and clamminess ? Irritability or impatience ? Confusion, including delirium ? Rapid/fast heartbeat ? Lightheadedness or dizziness ? Hunger and nausea ? Sleepiness ? Blurred/impaired vision ? Tingling or numbness in the lips or tongue ? Headaches ? Weakness or fatigue ? Anger, stubbornness, or sadness ? Lack of coordination ? Nightmares or crying out during sleep ? Seizures ? Unconsciousness Treatment 1. Consume 15-20 grams of glucose or simple carbohydrates 2. Recheck your blood glucose after 15 minutes 3. If hypoglycemia continues, repeat. 4. Once blood glucose returns to normal, eat a small snack if your next planned meal or snack is more than an hour or two away. 15 grams of simple carbohydrates commonly used: ? glucose tablets (follow package instructions) ? gel tube (follow package instructions) ? 2 tablespoons of raisins ? 4 ounces (1/2 cup) of juice or regular soda (not diet) ? 1 tablespoon sugar, honey, or corn syrup ? 8 ounces of nonfat or 1% milk ? hard candies, jellybeans, or gumdrops (see package to determine how many to consume) Hyperglycemia (High Blood Glucose) Hyperglycemia is the technical term for high blood glucose (blood sugar). High blood glucose happens when the body has too little insulin or when the body can't use insulin properly. What Causes Hyperglycemia? A number of things can cause hyperglycemiaX: ? If you have type 1, you may not have given yourself enough insulin. ? If you have type 2, your body may have enough insulin, but it is not as effective as it should be. ? You ate more than planned or exercised less than planned. ? You have stress from an illness, such as a cold or flu. ? You have other stress, such as family conflicts or school or dating problems. ? You may have experienced the delonte phenomenon (a surge of hormones that the body produces daily around 4:00 a.m. to 5:00 a.m.). What are the Symptoms of Hyperglycemia? The signs and symptoms include the following: ? High blood glucose ? High levels of sugar in the urine ? Frequent urination ? Increased thirst Part of managing your diabetes is checking your blood glucose often. Ask your doctor how often you should check and what your blood glucose levels should be. Checking your blood and then treating high blood glucose early will help you avoid problems associated with hyperglycemia. How Do I Treat Hyperglycemia? You can often lower your blood glucose levelX by exercising. However, if your blood glucose is above 240 mg/dl, check your urine for ketones. If you have ketones, do not exercise. Exercising when ketones are present may make your blood glucose level go even higher. You'll need to work with your doctor to find the safest way for you to lower your blood glucose level. Cutting down on the amount of food you eat might also help. Work with your dietitian to make changes in your meal plan. If exercise and changes in your diet don't work, your doctor may change the amount of your medication or insulin or possibly the timing of when you take it. What if it Goes Untreated? Hyperglycemia can be a serious problem if you don't treat it, so it's important to treat as soon asyou detect it. If you fail to treat hyperglycemia, a condition called ketoacidosis (diabetic coma) could occur. Ketoacidosis develops when your body doesn't have enough insulin. Without insulin, yourbody can't use glucose for fuel, so your body breaks down fats to use for energy. When your body breaks down fats, waste products called ketones are produced. Your body cannot tolerate large amounts of ketones and will try to get rid of them through the urine. Unfortunately, the body cannot release all the ketones and they build up in your blood, which can lead to ketoacidosis. Ketoacidosis is life-threatening and needs immediate treatment. Symptoms include: ? Shortness of breath ? Breath that smells fruity ? Nausea and vomiting ? Very dry mouth Talk to your doctor about how to handle this condition. Make Your Carbs Count The most popular comfort foods seem to contain lots of carbohydrate and fat (think macaroni and cheese) leaving one to wonder how to include them into a diabetes meal plan. You can include starchy foods, but make it count. What do we mean? When you reach for comfort foods, make your carbohydrate servings count by selecting the most nutrient dense choices and keeping your portions small. Here are some tips to get the most from your carb foods: Avoid sugary drinks. This includes regular soda, sweet tea, fruit punch and sports drinks. Instead,drink water or diet drinks like diet soda, sugarX-free lemonade. Eat whole fruit instead of drinking juice. Choose sweet potatoes instead of white potatoes. Try whole grain breads and whole wheat pasta instead of white bread and regular pasta. Eat whole grain oatmeal instead of processed cereals. Try brown rice or barley in soups, stews, and salads instead of white rice. Have a favorite ktpgn-gqwtn-ajgii recipe like zucchini bread or pancakes? Get creative with your own recipes and try substituting from 1/4 up to 1/2 the white flour with whole wheat flour to make your favorite comfort foods more wholesome. For healthier recipes, go to diabetes.org/recipes. To gauge your portion size, use the plate method to guide you: Keep only about 1/4 of your plate for starchy foods including starchy vegetables or grains like rice. Fill half of your plate with non-starchy vegetables. The last quarter is for your protein foods like fish or chicken. To keep portions smaller, keep the food to a depth of about the thickness of your palm. Types of Carbohydrates Did you know there are three main types of carbohydrate in food? There are ? Starches (also known as complex carbohydrates) ? Sugars ? Fiber You'll also hear terms like naturally occurring sugar, added sugar, low-calorie sweeteners, sugar alcohols, reduced-calorieX sweeteners, processed grains, enriched grains, complex carbohydrate, sweets, refined grains and whole grains. No wonder knowing what kind and how much carbohydrate to eat can be confusing! On the nutrition label, the term total carbohydrate includes all three types of carbohydrates. This is the number you should pay attention to if you are carbohydrate counting. Starch Foods high in starch include: ? Starchy vegetables like peas, corn, carlson beans and potatoes ? Dried beans, lentils and peas such as yanes beans, kidney beans, black eyed peas and split peas ? Grains like oats, barley and rice. (The majority of grain products in the [place] are made from wheat flour. These include pasta, bread and crackers but the variety is expanding to include other grains as well.) The grain group can be broken down even further into whole grain or refined grain. A grain contains three parts: ? bran ? germ ? endosperm The bran is the outer hard shell of the grain. It is the part of the grain that provides the most fiber and most of the B vitamins and minerals. The germ is the next layer and is packed with nutrients including essential fatty acids and vitaminE. The endosperm is the soft part in the center of the grain. It contains the starch. Whole grain means that the entire grain kernel is in the food. If you eat a whole grain food, it contains the bran, germ, and endosperm so you get all of the nutrients that whole grains have to offer. If you eat a refined grain food, it contains only the endosperm or the starchy part so you miss out on a lot of vitamins and minerals. Because whole grains contain the entire grain, they are much more nutritious than refined grains. Sugar Sugar is another type of carbohydrate. You may also hear sugar referred to as simple or fast-actingcarbohydrate. There are two main types of sugar: ? naturally occurring sugars such as those in milk or fruit ? added sugars such as those added during processing such as fruit canned in heavy syrup or sugar added to make a cookie On the nutrition facts label, the number of sugar grams includes both added and natural sugars. There are many different names for sugar. Examples of common names are table sugar, brown sugar, molasses, honey, beet sugar, cane sugar, confectioner's sugar, powdered sugar, raw sugar, turbinado, maple syrup, high-fructoseX corn syrup, agave nectar and sugar cane syrup. You may also see table sugar listed by its chemical name, sucrose. Fruit sugar is also known as fructose and the sugar in milk is called lactose. You can recognize other sugars on labels because their chemical names also end in - ose. For example glucoseX (also called dextrose), fructose (also called levulose), lactose and maltose. Fiber Fiber comes from plant foods so there is no fiber in animal products such as milk, eggs, meat, poultry, and fish. Fiber is the indigestible part of plant foods, including fruits, vegetables, whole grains, nuts andlegumes. When you consume dietary fiber, most of it passes through the intestines and is not digested. For good health, adults need to try to eat 25 to 30 grams of fiber each day. Most Americans do not consume nearly enough fiber in their diet, so while it is cohn to aim for this goal, any increase infiber in your diet can be beneficial. Most of us only get about half of what is recommended. Fiber contributes to digestive health, helps to keep you regular, and helps to make you feel full and satisfied after eating. Additional health benefits, of a diet high in fiber such as a reduction in cholesterol levels have been suggested by some so may be an additional benefit. Good sources of dietary fiber include: ? Beans and legumes. Think black beans, kidney beans, pintos, chick peas (garbanzos), white beans, and lentils. ? Fruits and vegetables, especially those with edible skin (for example, apples, corn and beans) and those with edible seeds (for example, berries). ? Whole grains such as: o Whole wheat pasta o Whole grain cereals (Look for those with three grams of dietary fiber or more per serving, including those made from whole wheat, wheat bran, and oats.) o Whole grain breads (To be a good source of fiber, one slice of bread should have at least three grams of fiber. Another good indication: look for breads where the first ingredient is a whole grain.For example, whole whe+at or oats.) Many grain products now have double fiber with extra fiber added. ? Nuts try different kinds. Peanuts, walnuts and almonds are a good source of fiber and healthy fat, but watch portion sizes, because they also contain a lot of calories in a small amount. In general, an excellent source of fiber contains five grams or more per serving, while a good source of fiber contains 2.5 - 4.9 grams per serving. It is best to get your fiber from food rather than taking a supplement. In addition to the fiber, these foods have a wealth of nutrition, containing many important vitamins and minerals. In fact, they may contain nutrients that haven't even been discovered yet! It is also important that you increase your fiber intake gradually, to prevent stomach irritation, and that you increase your intake of water and other liquids, to prevent constipation. Low-Calorie Sweeteners Are you struggling to control your sweet tooth? When you have diabetes, including sweets in your diet requires careful planning. However, it can behard to just save sweets for special occasions. Curb Your Cravings Foods and drinks that use artificial sweeteners are another option that may help curb your cravingsfor something sweet. Sometimes low-calorie sweeteners are also called artificial sweeteners, sugar substitutes or non-nutritive sweeteners. They can be used to mike food and drinks for less calories and carbohydrate when they replace sugar. The sweetening power of most low-calorie sweeteners is at least 100 times more intense than regularsugar, so only a small amount is needed when you use these sugar substitutes. Also, with the exception of aspartame, all of the sweeteners listed below cannot be broken down by the body. They pass through our systems without being digested so they provide no extra calories. Still, many foods containing low-calorie sweeteners will provide some calories and carbohydrate from other ingredients. That means foods that carry claims like sugar-free, reduced sugar or no sugar added are not necessarily carbohdyrate-free or lower in carbohydrate than the original version of the food. Always check the nutrition facts panel, even for foods that carry these claims. FDA Approved There are six artificial sweeteners that have been tested and approved by the U.S. Food and Drug Administration (FDA): ? acesulfame potassium (also called acesulfame K) ? aspartame ? saccharin ? sucralose ? neotame ? advantame These sweeteners are used by [employer] to make diet drinks, baked goods, frozen desserts, candy, light yogurt and chewing gum. You can buy them to use as table top sweeteners. Add them to coffee, tea, or sprinkle them on top of fruit. Some are also available in granular versions which can beused in cooking and baking. What's The Deal With Stevia? Stevia is also referred to as Rebaudioside A, Anneliese-A, or rebiana. Technically, Anneliese-A is a highly purified product that comes from the stevia plant and is several hundred times sweeter than sugar. According to the U.S. Food and Drug Administration (FDA), Anneliese-A is generally recognized as safe (GRAS) as a food additive and table top sweetener. When something is generally recognized as safe by the FDA, it means that experts have agreed that it is safe for use by the public in appropriate amounts. For more information, visit the Food and Drug Administration website at www.fda.gov. Snacks with Less Than 5 Grams of Carbohydrate 15 almonds 3 celery sticks + 1 Tablespoon of peanut butter 5 baby carrots 5 manuel tomatoes + 1 Tablespoon ranch dressing 1 hard-boiled egg 1 cup cucumber slices + 1 Tablespoon ranch dressing cup of fresh blueberries 1 cup of salad greens + 1/2 cup of diced cucumber + drizzle of vinegar and oil 1 frozen sugar-free popsicle 1 cup of light popcorn 2 saltine crackers 10 gold-fish crackers cup sugar-free gelatin 1 piece of string cheese stick 8 green olives 2 Tablespoons pumpkin or sesame seeds of a whole avocado (~4 g.) Look at diabetes.org the [place] [employer] website. * Attachments The following attachments cannot be sent through Care Everywhere. * Hand Pain (Australian) documented in this encounter* Instructions* Og Youssef PA-C - 12/08/2020 Follow-up with dermatology as soon as possible. Return to the ED if symptoms worsen or do not improve. * Attachments The following attachments cannot be sent through Care Everywhere. * Rash (Australian) documented in this encounter History of Present Illness * Eddie Brennan MD - 05/15/2020 2:09 PM EDT Wound care paged ortho to bedside to look at patients incisions and wound. Wound looked good with no erythema, swelling, or drainage. Wound vac was replaced and patient is prepared to go home once placement is established. Eddie Brennan MD PGY-1 Orthopedic Surgery Pager [phone] * Ren Osei DO - 05/15/2020 2:07 PM EDT [facility] Progress Note Alex Jefferson : 1965(54 y.o.) Date: 05/15/2020 Subjective: HPI The patient complains of hand pain Patient seen and examined. Chart reviewed. Denies fever, chills, CP, dyspnea, abd pain, N/V. +constipation +occassional right hand pain that is moderate in nature. Denies dysuria. Scheduled Meds: ceFAZolin 2 g Intravenous Q8H sodium chloride flush 10 mL Intracatheter Q12H heparin flush 250 Units Intracatheter Q12H Venelex Topical Daily metFORMIN 500 mg Oral BID WC lidocaine 1 % injection 5 mL Intradermal Once sodium chloride flush 10 mL Intravenous 2 times per day sodium chloride flush 10 mL Intravenous 2 times per day heparin flush 250 Units Intravenous 2 times per day sodium chloride flush 10 mL Intravenous 2 times per day acetaminophen 650 mg Oral Q6H insulin lispro 0-6 Units Subcutaneous TID WC insulin lispro 0-3 Units Subcutaneous Nightly Continuous Infusions: lactated ringers 100 mL/hr at 05/15/20 1311 dextrose PRN Meds:sodium chloride flush, heparin flush, polyethylene glycol, promethazine OR ondansetron, HYDROmorphone OR HYDROmorphone, oxyCODONE OR oxyCODONE, glucose, dextrose, glucagon (rDNA), dextrose Review of Systems - see HPI; all other ROS negative Interval Pertinent History: Social History Tobacco Use Smoking status: Current Every Day Smoker Packs/day: 1.50 Types: Cigarettes Smokeless tobacco: Never Used Substance Use Topics Alcohol use: Not Currently Objective: Patient Vitals for the past 24 hrs: BP Temp Temp src Pulse Resp SpO2 05/15/20 1348 (!) 152/88 95.9 F (35.5 C) Temporal 64 17 98 % 05/15/20 1234 (!) 150/85 97.1 F (36.2 C) Temporal 53 16 98 % 05/15/20 0859 (!) 161/113 95.1 F (35.1 C) Temporal 92 17 98 % 05/15/20 0414 (!) 175/99 96.3 F (35.7 C) Temporal 83 18 98 % 05/14/20 1716 131/61 98.4 F (36.9 C) Temporal 82 18 96 % Average, Min, and Max for last 24 hours Vitals: TEMPERATURE: Temp Av.6 F (35.9 C) Min: 95.1 F (35.1 C) Max: 98.4 F (36.9 C) RESPIRATIONS RANGE: Resp Av.2 Min: 16 Max: 18 PULSE RANGE: Pulse Av.8 Min: 53 Max: 92 BLOOD PRESSURE RANGE: Systolic (24hrs), Av , Min:131 , Max:175 ; Diastolic (24hrs), Av, Min:61, Max:113 PULSE OXIMETRY RANGE: SpO2 Av.6 % Min: 96 % Max: 98 % I/O last 3 completed shifts: In: 2200 [P.O.:1200; I.V.:1000] Out: 0 Physical Exam Constitutional: Appearance: Normal appearance. He is well-developed. HENT: Head: Normocephalic and atraumatic. Nose: Nose normal. Eyes: Conjunctiva/sclera: Conjunctivae normal. Pupils: Pupils are equal, round, and reactive to light. Neck: Musculoskeletal: Neck supple. Thyroid: No thyromegaly. Cardiovascular: Rate and Rhythm: Normal rate and regular rhythm. Heart sounds: Normal heart sounds. Pulmonary: Effort: Pulmonary effort is normal. Breath sounds: Normal breath sounds. Abdominal: General: Bowel sounds are normal. Palpations: Abdomen is soft. Comments: No hepatosplenomegaly. Musculoskeletal: Comments: Right hand wrapped and not examined. Skin: General: Skin is warm and dry. Neurological: Mental Status: He is alert and oriented to person, place, and time. Deep Tendon Reflexes: Reflexes are normal and symmetric. Psychiatric: Judgment: Judgment normal. Lab Results Component Value Date WBC 14.8 (H) 05/11/2020 HGB 13.6 05/11/2020 HCT 40.0 05/11/2020 MCV 90.1 05/11/2020 PLT 243 05/11/2020 Lab Results Component Value Date NA 131 05/15/2020 K 4.2 05/15/2020 CL 98 05/15/2020 CO2 23 05/15/2020 BUN 8 05/15/2020 CREATININE 0.53 05/15/2020 GLUCOSE 135 05/15/2020 CALCIUM 8.5 05/15/2020 Lab Results Component Value Date LABA1C 6.7 (H) 05/12/2020 Additional results of the last 24 hours have been reviewed. Assessment and Plan: Principal Problem: Compartment syndrome of right hand (HCC) Active Problems: Type 2 diabetes mellitus with hyperglycemia, without long-term current use of insulin (HCC) Elevated CK Hyponatremia Pyuria- asymptomatic Necrotizing fasciitis (HCC) Abscess of right hand Septic arthritis of right wrist (HCC) Right hand pain MSSA (methicillin susceptible Staphylococcus aureus) Resolved Problems: * No resolved hospital problems. * #Compartment syndrome/?nec fas/hand pain - due to pathology less likely necrotizing fasciitis; s/p I and D x 2 with wound vac placement; ID following for IV antibiotic (MSSA susceptible to nafcillin); pain control per ortho #DM II - new diagnosis; started metformin and BS's under better control #Elevated BP - per patient BP taken on PICC arm and occasional flareup of his sciatica; likely bothare playing a role; treating underlying pain and monitor BP #Hyponatremia - mild; suspect SIADH due to pain/surgery and low intake; recommend stopping LR; use NS if IV fluids needed although patient taking; when no IV fluid needed recommend 2 L fluid restriction #?UTI - doubt; urine cx negative and patient denies urinary complaints Disposition: ok to dc from medicine perspective; f/u in IMC and number placed in DC follow-up section; will follow peripherally I spent over 51% of total time providing counseling or incoordination of care: > 35 minutes I personally examined the patient and I personally reviewed chart, data, labs radiology reports 6AM-6PM please page: 6PM-6AM please page: [facility] Internal Medicine * Kasandra Crespo RN - 05/15/2020 11:00 AM EDT Wound Care follow up visit: Pt premedicated for pain with IV pain mediaction per director of midwifery/staff midwife prior to wound VAC dressing change. Pt reports his sciatica pain is a little better today. Ortho notified of Wound care arrival to pt's room. Old dressing soaked with saline and removed without difficulties from right hand. Dr Brennan arrived to pt's room for evaluation of right hand and photos. Right dorsal hand to wrist with incision w ith sutures intact, small amount of serous drainage noted weeping from mid portion of incision while dressing was off. (see photo below). Dr Brennan aware. Periwound with small amount of maceration. No erythema. No purulence noted. Right lateral dorsal hand with full thickness surgical wound with red tissues and exposed tendon (see photo below) Periwound macerated. No erythema. Moderate amount of light serosang drainage noted weeping from wound while dressing off. No purulence.Incision and woundcleansed with saline, patted dry and cavilon no sting applied to periwound. Mepitel one (nonadherent silicone) applied over incision and wound. Topped with black foam and bridged together with total of 3 pieces of black foam. Trac pad buttoned. Secured with kerlix with 4x4's placed to pad VAC tubing. Splint reapplied and secured with brijesh wrap. Wound VAC well sealed at 125 mmHg continuous suction.Pt tolerated the dressing well today, sleeping/resting throughout entire dressing change. Right palm incision with suture intact. Small area of separation noted, 0.3 x 0.2cm with pink tissues. Scant amount of serous drainage noted on old dressing. No purulence. Periwound clear, no erythema. (see photo below) Cleansed with saline, patted dry and covered with dry gauze 4x4, secured with kerlix. Right elbow with partial thickness open area with pink tissues and 50% thin yellow. Periwound clear, no erythema. Small amount of serous drainage noted on old foam dressing. No purulence. Cleansed with saline, patted dry and covered with Mepilex 4x4 foam dressing, secured with net bandage. Palpable right radial pulse. Right hand/fingers edematous. Pt denies any other skin breakdown. Instructed director of midwifery/staff midwife to clamp VAC tubing, discontinue from hospital VAC and cover the end of the tubing, if pt is discharged to SNF over the weekend. Verbalized understanding Will continue to follow pt for wound VAC dressing changes M/W/F. * Jocelyne Alonso MD - 05/15/2020 6:16 AM EDT [facility] [address] [facility] [address] [place] [id number] Dept: [phone] Loc: [phone] Orthopedic Progress Note Name: Alex Jefferson Date:05/15/2020 Attending:Herrera Ornelas, Subjective Patient resting comfortably. Reports his hand pain continues to improve but it still significantly painful. Reports his numbness in his index finger is improving. Objective Vitals: Vitals: 05/14/20 0802 05/14/20 1242 05/14/20 1716 05/15/20 0414 BP: 134/84 132/76 131/61 (!) 175/99 Pulse: 86 79 82 83 Resp: 18 18 18 18 Temp: 96.3 F (35.7 C) 97.2 F (36.2 C) 98.4 F (36.9 C) 96.3 F (35.7 C) TempSrc: Temporal Temporal Temporal Temporal SpO2: 98% 97% 96% 98% Weight: Height: Physical Exam: General: NAD RUE Dressing: Clean/Dry/Intact, WV in place with good seal and suction. Volar incision appears well-healing without surrounding erythema, expressible drainage. TTP throughout the hand, reports pain is improving SILT: grossly diminished in all fingers due to callosity and dried skin, but grossly all finger sensation is intact. -right index finger has less sensation than the other digits, continues to improve Motor: +finger wiggle, Minimal pain with passive stretch of all fingers, but pain is appropriate and not excessive. Pulses: BCR to all digits <2 secs LABS: No results for input(s): WBC, HGB, HCT, PLT in the last 72 hours. Recent Labs 05/13/20 2259 05/14/20 0651 05/15/20 0301 NA 130* 132* 131* K 3.9 4.2 4.0 CL 98 97* 100 CO2 26 28 25 BUN 14 12 10 CREATININE 0.65 0.65 0.57 CALCIUM 8.3* 8.5 8.2* No results for input(s): INR in the last 72 hours. No results for input(s): SEDRATE, CRP in the last 72 hours. No results for input(s): HCG in the last 72 hours. Assessment Alex is a 54 y.o.male w/ R hand abscess/compartment syndrome s/p I&D/fasciotomies/carpal tunnel release 05/10 and repeat I&D with partial closure and application of wound vac 05/11 Plan NWB RUE Ice Elevate aggressively from IV pole Keep splint C/D/I, ok to remove and reapply for WV changes No plan to return to OR Ok for diet from ortho standpoint Wound vac in place Wound care consult for WV changes while in house Vac at discharge - please call ortho so that we can be present to take pics and evaluate wounds at time of vac change today 05/15 ([phone]) Wound vac form signature on chart ID following Continue antibiotics per ID, plan for treatment with 4 wk nafcillin Skin/NV checks Ortho is primary service Medicine following for medical management Awaiting placement, patient ok for DC from orthopaedic standpoint once placement obtained, antibiotics arranged, medically cleared * Butch Harris MD - 05/14/2020 11:40 AM EDT [facility] - Infectious Diseases Progress Note Reason for follow up: R septic wrist and deep hand abscess Subjective: Patient states cast weight is bothersome to R hand but no acute pain. Has some positional discomfort, ambulating around room. Denies fevers, SOB, urinary issues, CP, skin changes. Antimicrobials: nafcillin Prior: Clindamycin, vancomycin, zosyn Objective: Vitals: Patient Vitals for the past 24 hrs: BP Temp Temp src Pulse Resp SpO2 05/14/20 0802 134/84 96.3 F (35.7 C) Temporal 86 18 98 % 05/14/20 0521 (!) 138/96 97.3 F (36.3 C) Temporal 99 18 98 % 05/14/20 0113 (!) 140/85 98.6 F (37 C) Temporal 77 18 96 % 05/13/20 2207 135/79 97.5 F (36.4 C) Temporal 90 19 94 % 05/13/20 1734 (!) 153/93 99.5 F (37.5 C) Temporal 89 16 96 % Physical Exam Constitutional: Appearance: Normal appearance. HENT: Head: Normocephalic and atraumatic. Right Ear: External ear normal. Left Ear: External ear normal. Nose: Nose normal. Mouth/Throat: Mouth: Mucous membranes are moist. Pharynx: Oropharynx is clear. Eyes: Extraocular Movements: Extraocular movements intact. Conjunctiva/sclera: Conjunctivae normal. Pupils: Pupils are equal, round, and reactive to light. Neck: Musculoskeletal: Normal range of motion and neck supple. Cardiovascular: Rate and Rhythm: Normal rate and regular rhythm. Heart sounds: Normal heart sounds. Pulmonary: Effort: Pulmonary effort is normal. Breath sounds: Normal breath sounds. Abdominal: General: Abdomen is flat. Bowel sounds are normal. Palpations: Abdomen is soft. Tenderness: There is no abdominal tenderness. Musculoskeletal: Normal range of motion. Right lower leg: No edema. Left lower leg: No edema. Comments: R hand wrapped Skin: General: Skin is warm and dry. Neurological: General: No focal deficit present. Mental Status: He is alert. Psychiatric: Mood and Affect: Mood normal. Behavior: Behavior normal. Labs: Component Value Date/Time NA 132 (L) 05/14/2020 0651 K 4.2 05/14/2020 0651 CL 97 (L) 05/14/2020 0651 CO2 28 05/14/2020 0651 BUN 12 05/14/2020 0651 CREATININE 0.65 05/14/2020 0651 GLUCOSE 102 (H) 05/14/2020 0651 CALCIUM 8.5 05/14/2020 0651 PROT 6.1 (L) 05/11/2020 0300 LABALBU 3.1 (L) 05/11/2020 0300 BILITOT 0.5 05/11/2020 0300 ALKPHOS 83 05/11/2020 0300 AST 37 05/11/2020 0300 ALT 24 05/11/2020 0300 Component Value Date/Time WBC 14.8 (H) 05/11/2020 0300 HGB 13.6 05/11/2020 0300 HCT 40.0 05/11/2020 0300 PLT 243 05/11/2020 0300 GRANULOCYTES 92.4 (H) 05/11/2020 0300 LYMPHOPCT 2.9 (L) 05/11/2020 0300 MONOPCT 4.4 05/11/2020 0300 LABEOS 0.0 (L) 05/11/2020 0300 BASOPCT 0.3 05/11/2020 0300 NEUTROABS 13.6 (H) 05/11/2020 0300 Micro: 05/10 surgical path - DIAGNOSIS: A. THIRD AND FOURTH INTERSPACE COMPARTMENT MUSCLE, EXCISION - GANGRENOUS NECROSIS B. EXTENSORS SYNOVIAL, EXCISION - FIBROCONNECTIVE TISSUE WITH EXTENSIVE ACUTE AND CHRONIC INFLAMMATION 05/10 Wound culture - staph aureus (nafcillin sensitive) 05/11 urine culture - NG Imaging: Lines: PIV Problem List: Wrist abscess / septic arthritis -s/p repeat I&D, partial closure + wound vac placement, no further intervention planned -wound cx growing staph aureus (nafcillin sensitive) -On nafcillin, will likely need pump for up to 4 weeks duration of antibiotic treatment. PICC line today. Will likely switch to cefazolin on discharge. Hyponatremia - IV fluids, CTM T2DM - SSI Asymptomatic bacturia - no need for antibiotics Associated attestation - Geovanny Cai MD - 05/14/2020 8:01 PM EDT I performed a physical exam of the patient and discussed his management with the ID team. I reviewed [facility] intern's note and agree with the documented findings and plan of care. Arm pain tolerable, now c/o chronic sciatica to L side. Tolerating IV antibiotic well. Switched to IV Cefazolin for q8 dosing, and hopefully will be accepted to ECF to complete his antibiotic regimen. PICC in place. * Jocelyne Alonso MD - 05/14/2020 6:11 AM EDT [facility] [address] [address] [place], [place] [id number] Dept: [phone] Loc: [phone] Orthopedic Progress Note Name: Alex Jefferson Date:05/14/2020 Attending:Herrera Ornelas, Subjective Patient resting comfortably. Reports his hand pain is improved. Reports his numbness in his index finger is unchanged. Objective Vitals: Vitals: 05/13/20 1734 05/13/20 2207 05/14/20 0113 05/14/20 0521 BP: (!) 153/93 135/79 (!) 140/85 (!) 138/96 Pulse: 89 90 77 99 Resp: 16 19 18 18 Temp: 99.5 F (37.5 C) 97.5 F (36.4 C) 98.6 F (37 C) 97.3 F (36.3 C) TempSrc: Temporal Temporal Temporal Temporal SpO2: 96% 94% 96% 98% Weight: Height: Physical Exam: General: NAD RUE Dressing: Clean/Dry/Intact, WV in place with good seal and suction. SILT: grossly diminished in all fingers due to callosity and dried skin, but grossly all finger sensation is intact. -right index finger has less sensation than the other digits. Motor: +finger wiggle, Minimal pain with passive stretch of all fingers, but pain is appropriate and not excessive. Pulses: BCR to all digits <2 secs LABS: No results for input(s): WBC, HGB, HCT, PLT in the last 72 hours. Recent Labs 05/12/20 2208 05/13/20 0303 05/13/20 2259 NA 132* 132* 130* K 3.9 4.1 3.9 CL 93* 94* 98 CO2 30 30 26 BUN 17 16 14 CREATININE 0.65 0.70 0.65 CALCIUM 8.5 8.7 8.3* No results for input(s): INR in the last 72 hours. No results for input(s): SEDRATE, CRP in the last 72 hours. No results for input(s): HCG in the last 72 hours. Assessment Alex is a 54 y.o.male w/ R hand abscess/compartment syndrome s/p I&D/fasciotomies/carpal tunnel release 05/10 and repeat I&D with partial closure and application of wound vac 05/11 Plan NWB RUE Ice Elevate aggressively from IV pole Keep splint C/D/I, ok to remove and reapply for WV changes No plan to return to OR Ok for diet from ortho standpoint Vera flow wound vac applied (Settings: 10cc flush over 1 min every 3.5 hours) Wound care consult for WV changes while in house Vac at discharge - please call ortho so that we can be present to take pics and evaluate before vac placement and discharge. Wound vac form signature on chart ID consult Continue antibiotics per ID, plan for treatment with 4 wk nafcillin Skin/NV checks Ortho is primary service Medicine following for medical management Awaiting placement, patient ok for DC from orthopaedic standpoint once placement obtained, antibiotics arranged, medically cleared * Ren Osei DO - 05/13/2020 4:20 PM EDT [facility] Progress Note Alex Jefferson : 1965(54 y.o.) Date: 05/13/2020 Subjective: HPI The patient complains of hand pain Patient seen and examined. Chart reviewed. Denies fever, chills, CP, dyspnea, abd pain, N/V. +constipation +occassional right hand pain that is moderate in nature. Denies dysuria. Scheduled Meds: Venelex Topical Daily metFORMIN 500 mg Oral BID WC nafcillin 2 g Intravenous Q4H sodium chloride flush 10 mL Intravenous 2 times per day acetaminophen 650 mg Oral Q6H insulin lispro 0-6 Units Subcutaneous TID WC insulin lispro 0-3 Units Subcutaneous Nightly Continuous Infusions: lactated ringers 100 mL/hr at 05/11/20 0812 dextrose PRN Meds:sodium chloride flush, polyethylene glycol, promethazine OR ondansetron, HYDROmorphoneOR HYDROmorphone, oxyCODONE OR oxyCODONE, glucose, dextrose, glucagon (rDNA), dextrose Review of Systems - see HPI; all other ROS negative Interval Pertinent History: Social History Tobacco Use Smoking status: Current Every Day Smoker Packs/day: 1.50 Types: Cigarettes Smokeless tobacco: Never Used Substance Use Topics Alcohol use: Not Currently Objective: Patient Vitals for the past 24 hrs: BP Temp Temp src Pulse Resp SpO2 Height 05/13/20 1008 128/78 97.3 F (36.3 C) Temporal 87 18 94 % 05/13/20 0748 7' (2.134 m) 05/13/20 0542 114/78 97.8 F (36.6 C) Temporal 75 18 99 % 05/13/20 0128 (!) 148/82 97.2 F (36.2 C) Temporal 71 18 97 % 05/12/20 2046 115/74 97.2 F (36.2 C) Temporal 72 19 95 % 05/12/20 1627 122/75 97.3 F (36.3 C) Temporal 68 16 93 % Average, Min, and Max for last 24 hours Vitals: TEMPERATURE: Temp Av.4 F (36.3 C) Min: 97.2 F (36.2 C) Max: 97.8 F (36.6 C) RESPIRATIONS RANGE: Resp Av.8 Min: 16 Max: 19 PULSE RANGE: Pulse Av.6 Min: 68 Max: 87 BLOOD PRESSURE RANGE: Systolic (24hrs), Av , Min:114 , Max:148 ; Diastolic (24hrs), Av, Min:74, Max:82 PULSE OXIMETRY RANGE: SpO2 Av.6 % Min: 93 % Max: 99 % No intake/output data recorded. Physical Exam Constitutional: Appearance: Normal appearance. He is well-developed. HENT: Head: Normocephalic and atraumatic. Nose: Nose normal. Eyes: Conjunctiva/sclera: Conjunctivae normal. Pupils: Pupils are equal, round, and reactive to light. Neck: Musculoskeletal: Neck supple. Thyroid: No thyromegaly. Cardiovascular: Rate and Rhythm: Normal rate and regular rhythm. Heart sounds: Normal heart sounds. Pulmonary: Effort: Pulmonary effort is normal. Breath sounds: Normal breath sounds. Abdominal: General: Bowel sounds are normal. Palpations: Abdomen is soft. Comments: No hepatosplenomegaly. Musculoskeletal: Comments: Right hand wrapped and not examined. Skin: General: Skin is warm and dry. Neurological: Mental Status: He is alert and oriented to person, place, and time. Deep Tendon Reflexes: Reflexes are normal and symmetric. Psychiatric: Judgment: Judgment normal. Lab Results Component Value Date WBC 14.8 (H) 05/11/2020 HGB 13.6 05/11/2020 HCT 40.0 05/11/2020 MCV 90.1 05/11/2020 PLT 243 05/11/2020 Lab Results Component Value Date NA 132 05/13/2020 K 4.1 05/13/2020 CL 94 05/13/2020 CO2 30 05/13/2020 BUN 16 05/13/2020 CREATININE 0.70 05/13/2020 GLUCOSE 132 05/13/2020 CALCIUM 8.7 05/13/2020 Lab Results Component Value Date LABA1C 6.7 (H) 05/12/2020 Additional results of the last 24 hours have been reviewed. Assessment and Plan: Principal Problem: Compartment syndrome of right hand (HCC) Active Problems: Type 2 diabetes mellitus with hyperglycemia, without long-term current use of insulin (HCC) Elevated CK Hyponatremia Pyuria- asymptomatic Necrotizing fasciitis (HCC) Abscess of right hand Septic arthritis of right wrist (HCC) Right hand pain MSSA (methicillin susceptible Staphylococcus aureus) Resolved Problems: * No resolved hospital problems. * #Compartment syndrome/?nec fas/hand pain - due to pathology less likely necrotizing fasciitis; s/p I and D x 2 with wound vac placement; ID following for IV antibiotic (MSSA susceptible to nafcillin); pain control per ortho #DM II - new diagnosis; started metformin; discussed with patient long-term macro- and micro- vascular complications of diabetes; today he is willing to talk with elementary educator #Hyponatremia - mild; suspect SIADH due to pain/surgery and low intake; recommend stopping LR when able #?UTI - doubt; urine cx negative and patient denies urinary complaints Disposition: ok to dc from medicine perspective; f/u in IMC and number placed in DC follow-up section; will follow peripherally I spent over 51% of total time providing counseling or incoordination of care: > 35 minutes I personally examined the patient and I personally reviewed chart, data, labs radiology reports 6AM-6PM please page: 6PM-6AM please page: [facility] Internal Medicine * Eddie Brennan MD - 05/13/2020 10:53 AM EDT Ortho to bedside for wound vac change. Wound looked clean, dry and intact with no evidence of new drainage or increased erythema as shown in images below. Wound care in room to place new wound vac for eventual discharge. Ortho to follow, please page [phone] or occupational medicine physician resident with any questions or concerns. Eddie Brennan MD PGY-1 Orthopedic Surgery Pager [phone] * Rachelle Cota, RD, LD - 05/13/2020 10:27 AM EDT Comprehensive Nutrition Assessment Type and Reason for Visit: Initial, Consult Nutrition Recommendations/Plan: 1. Patient ordered a CHO Controlled (75 gm carbs/meal) diet. Patient would benefit from CHO Controlled (92 gm carbs/meal) to better meet his estimated nutritional needs. 2. Per MNT protocol will provide wound healing supplement: Manny BID (1 pkt provides 90-95 kcals, 14 gm amino acids, 2.5 gm protein). 3. No record of recent oral intake in flow sheets. Please record % of meals and oral nutrition supplement consumed daily. 4. Consult for diabetic diet education. A1C 6.7%. Newly diagnosed DM II. Provided and reviewed information from Nutrition Care Manual on Carbohydrate Counting for People with Diabetes. Reviewed rationale/diet principles. Discussed foods that contain carbohydrates and serving sizes. Encouraged 3 meals per day and portion control. Discouraged foods/beverages with added sugars. Multiple barriers with diet education included pain- c/o sciatica, watching TV although volume was off, his glasses left at home unable to see information/menu, and limited movement due to arm elevation. Patient without questions at this time. Will continue to reinforce while inpatient. RD provided contact information for him and his brother at discharge. 5. Recommend MVI and Vitamin C daily to assist with healing. 6. Monitor weight, labs, fluid, and nutritional status. RD will follow up. Nutrition Assessment: Pt wtih R hand abscess/compartment syndrome s/p I&D/fasciotomies/carpal tunnel release 05/10 and repeat I&D with partial closure and application of wound vac 05/11. Patientreports that he does not eat alot at home. He eats 2 meals per day and snacks on something like a banana. Patient consumes black coffee. He does not drink pop, ice tea, or lemonade, but he reports that he drinks juice at home. Patient eats wheat bread. Likes to make a pineapple upside down cake with alot of sugar. NKFA. He denies difficulties chewing or swallowing. Malnutrition Assessment: Malnutrition Status: At risk for malnutrition (Comment) Context: Acute Illness Findings of the 6 clinical characteristics of malnutrition: Energy Intake: Mild decrease in energy intake (Comment) Weight Loss: No significant weight loss Body Fat Loss: No significant body fat loss Muscle Mass Loss: No significant muscle mass loss Fluid Accumulation: No significant fluid accumulation (+ 2 non pitting RUE edema (wound vac on right anterior hand)) Provider Engagement Executive Strength: Not Performed Estimated Daily Nutrient Needs: Energy (kcal): 25 kcals per kg = 2853 kcals per day; Weight Used for Energy Requirements: Downs Protein (g): 1.2-1.4 gm per kg = 137-160 gm per day; Weight Used for Protein Requirements: Downs Fluid (ml/day): Per MD; Nutrition Related Findings: Abdomen WDL, + 2 non-pitting RUE edema. Labs: Na+ 132, BG 126, 132, 115, A1C 6.7%. Meds: Insulin, Nafcillin, Lactated Ringer Infusion. Wounds: Surgical Wound(Leobardo = 18; wound vac right anterior hand) Current Nutrition Therapies: DIET CARB CONTROL; Anthropometric Measures: Height: 7' (213.4 cm) Current Body Weight: 251 lb (113.9 kg)(no method listed) Usual Body Weight: (250-260 lbs stated- pt reports that he may gain weight during winter time) Downs Body Weight: 250 lbs; % Downs Body Weight 100.4 % BMI: 25 Adjusted Body Weight: ; No Adjustment BMI Categories: Overweight (BMI 25.0-29.9) Nutrition Diagnosis: Food & Nutrition-related knowledge deficit related to renal dysfunction(newly diagnosed DM) as evidenced by lab values(A1C 6.7%) Nutrition Interventions: Food and/or Nutrient Delivery: Modify Current Diet, Start Oral Nutrition Supplement Nutrition Education/Counseling: Education completed Coordination of Nutrition Care: No recommendation at this time Goals: Patient verbalize understanding of carbohydrate control diet for discharge. Nutrition Monitoring and Evaluation: Behavioral-Environmental Outcomes: Knowledge or Skill, Readiness for Change Food/Nutrient Intake Outcomes: Food and Nutrient Intake, Supplement Intake, Vitamin/Mineral Intake,IVF Intake Physical Signs/Symptoms Outcomes: Biochemical Data, GI Status, Fluid Status or Edema, Meal Time Behavior, Nutrition Focused Physical Findings, Skin, Weight Discharge Planning: Recommend pursue outpatient diabetes education Contact: [phone] * Kasandra Crespo RN - 05/13/2020 10:15 AM EDT Wound Care consulted for wound VAC dressing changes to right hand. Pt's current and PMH reviewed and includes: + tobacco use, Right hand abscess/compartment syndrome s/p I&D/fasciotomies/carpal tunnel release 05/10 and repeat I&D with partial closure and application of wound vac 05/11. D/W Dr Alonso 05/12 regarding use of standard wound VAC for home use (see progress note) Pt premedicated for pain with IV pain mediaction per director of midwifery/staff midwife prior to wound VAC dressing change. Pt with complaints of sciatica pain in LE's prior to dressing, during the dressing and after dressing completed. Wound VAC dressing change procedure and frequency explained to pt. Pt verbalized understanding. Ortho notified of Wound care arrival to pt's room. Old dressing soaked with saline and removed without difficulties from right hand. Dr Brennan arrived to pt's room for evaluation of right hand and instructed Wound care to discontinue use of VeraFlo VAC and use appropriate wound VAC on pt for home going purposes. Right dorsal hand to wrist with incision measuring 12.5cm with sutures in place. Small amount of light serosang drainage noted weeping from incision as dressing was off. (see photo below) Periwound with small amount of maceration. No erythema. No purulence noted. Right lateral dorsal hand with full thickness surgical wound measuring 5 x 1.3 x 0.5cm deep. Wound Bed with red tissues and exposed tendon (see photo below) Periwound macerated. No erythema. Moderate amount of light serosang drainage noted weeping from wound while dressing off. No purulence.Incision and wound cleansed with saline, patted dry and cavilon no sting applied to periwound. Mepitel one (nonadherent silicone)applied over incision and wound. Topped with black foam and bridged together with total of 3 piecesof black foam. Trac pad buttoned. Secured with kerlix with 4x4's placed to pad VAC tubing. Splint reapplied and secured with brijesh wrap. Wound VAC well sealed at 125 mmHg continuous suction. Pt tolerated the dressing ok but complained of worsening sciatica pain. Right palm incision measures 8cm long with sutures intact. Well approximated. Small amount of driedserous drainage noted on old dressing. No purulence. Periwound clear, no erythema. (see photo below) Cleansed with saline, patted dry and covered with dry gauze 4x4, secured with kerlix. Right elbow with partial thickness open area that pt reports started from rubbing and pushing up inbed with his elbow. Measures 3 x 1.5 x 0.1cm. Wound bed with pink tissues and thin coating of yellow tissues. (see photo below) Periwound clear, no erythema. Small amount of serous drainage noted on old foam dressing. No purulence. Cleansed with saline, patted dry and covered with Mepilex 4x4 foam dressing, secured with net bandage. Palpable right radial pulse. D/W Samia HAYWOOD regarding home wound VAC. Recommend use of regular home wound VAC (ActiVAC). Samia waiting for signature and setting up home care. Would recommend: Venelex ointment to right elbow Daily, cover with Mepilex 4x4 foam and secure with net bandage Wound VAC to right dorsal hand wound and incision with use of mepitel one (or similar nonadherent) topped with black foam at 125 mmhg continuous suction, change M/W/F. Consult to Medical Front Desk Coordinator Will continue to follow pt for wound VAC dressing changes M/W/F. * Manolo Nina MD - 05/13/2020 6:01 AM EDT [facility] [address] [facility] [address] [place] [address] Dept: [phone] Loc: [phone] Orthopedic Progress Note Name: Alex Jefferson Date:05/13/2020 Attending:Herrera Ornelas, DO Subjective Patient resting comfortably. Reports his hand pain is improved. Denies numbness or tingling. Objective Vitals: Vitals: 05/12/20 1627 05/12/20 2046 05/13/20 0128 05/13/20 0542 BP: 122/75 115/74 (!) 148/82 114/78 Pulse: 68 72 71 75 Resp: 16 19 18 18 Temp: 97.3 F (36.3 C) 97.2 F (36.2 C) 97.2 F (36.2 C) 97.8 F (36.6 C) TempSrc: Temporal Temporal Temporal Temporal SpO2: 93% 95% 97% 99% Weight: Height: Physical Exam: General: NAD RUE Dressing: Clean/Dry/Intact, WV in place with good seal and suction. SILT: grossly diminished in all fingers due to callosity and dried skin, but grossly all finger sensation is intact. -right index finger has less sensation than the other digits. Motor: +finger wiggle, Pain with passive stretch of all fingers, but pain is appropriate and not excessive. Pulses: BCR to all digits <2 secs LABS: Recent Labs 05/10/20 1526 05/11/20 0300 WBC 12.4* 14.8* HGB 15.3 13.6 HCT 43.9 40.0 PLT 268 243 Recent Labs 05/12/20 1546 05/12/20 2208 05/13/20 0303 NA 130* 132* 132* K 4.2 3.9 4.1 CL 92* 93* 94* CO2 31* 30 30 BUN 19 17 16 CREATININE 0.64 0.65 0.70 CALCIUM 8.8 8.5 8.7 Recent Labs 05/10/201 INR 1.1 No results for input(s): SEDRATE, CRP in the last 72 hours. No results for input(s): HCG in the last 72 hours. Assessment Alex is a 54 y.o.male w/ R hand abscess/compartment syndrome s/p I&D/fasciotomies/carpal tunnel release 05/10 and repeat I&D with partial closure and application of wound vac 05/11 Plan NWB RUE Ice Elevate aggressively from IV pole Keep splint C/D/I, ok to remove and reapply for WV changes No plan to return to OR Ok for diet from ortho standpoint Vera flow wound vac applied (Settings: 10cc flush over 1 min every 3.5 hours) Wound care consult for WV changes while in house Switch to Prevena upon discharge, to go home with Prevena in place - please call ortho so that we can be present to take pics and evaluate before vac placement and discharge. Wound vac form signature on chart ID consult Continue antibiotics per ID Skin/NV checks Ortho is primary service--> will work for transfer of services to medical team due to co-morbidities. Will discuss with medical team in AM * Ren Osei DO - 05/12/2020 12:31 PM EDT [facility] Progress Note Alex Jefferson : 1965(54 y.o.) Date: 05/12/20 Subjective: HPI The patient complains of hand pain Patient seen and examined. Chart reviewed. Denies fever, chills, CP, dyspnea, abd pain, N/V. +constipation +occassional right hand pain that is moderate in nature. Denies dysuria. Scheduled Meds: nafcillin 2 g Intravenous Q4H sodium chloride flush 10 mL Intravenous 2 times per day acetaminophen 650 mg Oral Q6H insulin lispro 0-6 Units Subcutaneous TID WC insulin lispro 0-3 Units Subcutaneous Nightly Continuous Infusions: lactated ringers 100 mL/hr at 05/11/20 0812 dextrose PRN Meds:sodium chloride flush, polyethylene glycol, promethazine OR ondansetron, HYDROmorphoneOR HYDROmorphone, oxyCODONE OR oxyCODONE, glucose, dextrose, glucagon (rDNA), dextrose Review of Systems - see HPI; all other ROS negative Interval Pertinent History: Social History Tobacco Use Smoking status: Current Every Day Smoker Packs/day: 1.50 Types: Cigarettes Smokeless tobacco: Never Used Substance Use Topics Alcohol use: Not Currently Objective: Patient Vitals for the past 24 hrs: BP Temp Temp src Pulse Resp SpO2 05/12/20 1627 122/75 97.3 F (36.3 C) Temporal 68 16 93 % 05/12/20 1204 116/74 96.2 F (35.7 C) Temporal 66 15 97 % 05/12/20 0836 104/72 96.9 F (36.1 C) Temporal 66 15 94 % 05/12/20 0433 128/69 98 F (36.7 C) Temporal 52 18 97 % 05/11/20 2040 112/73 95.5 F (35.3 C) Temporal 76 18 94 % 05/11/20 1900 (!) 140/85 81 16 94 % 05/11/20 1845 138/82 98.8 F (37.1 C) 89 17 97 % 05/11/20 1830 (!) 142/92 99 18 96 % 05/11/20 1825 (!) 140/86 99 F (37.2 C) Temporal 100 19 97 % Average, Min, and Max for last 24 hours Vitals: TEMPERATURE: Temp Av.4 F (36.3 C) Min: 95.5 F (35.3 C) Max: 99 F (37.2 C) RESPIRATIONS RANGE: Resp Av.9 Min: 15 Max: 19 PULSE RANGE: Pulse Av.4 Min: 52 Max: 100 BLOOD PRESSURE RANGE: Systolic (24hrs), Av , Min:104 , Max:142 ; Diastolic (24hrs), Av, Min:69, Max:92 PULSE OXIMETRY RANGE: SpO2 Av.4 % Min: 93 % Max: 97 % I/O last 3 completed shifts: In: 300 [I.V.:300] Out: 10 [Blood:10] Physical Exam Constitutional: Appearance: Normal appearance. He is well-developed. HENT: Head: Normocephalic and atraumatic. Nose: Nose normal. Eyes: Conjunctiva/sclera: Conjunctivae normal. Pupils: Pupils are equal, round, and reactive to light. Neck: Musculoskeletal: Neck supple. Thyroid: No thyromegaly. Cardiovascular: Rate and Rhythm: Normal rate and regular rhythm. Heart sounds: Normal heart sounds. Pulmonary: Effort: Pulmonary effort is normal. Breath sounds: Normal breath sounds. Abdominal: General: Bowel sounds are normal. Palpations: Abdomen is soft. Comments: No hepatosplenomegaly. Musculoskeletal: Comments: Right hand wrapped and not examined. Skin: General: Skin is warm and dry. Neurological: Mental Status: He is alert and oriented to person, place, and time. Deep Tendon Reflexes: Reflexes are normal and symmetric. Psychiatric: Judgment: Judgment normal. Comments: +irritable at times Lab Results Component Value Date WBC 14.8 (H) 05/11/2020 HGB 13.6 05/11/2020 HCT 40.0 05/11/2020 MCV 90.1 05/11/2020 PLT 243 05/11/2020 Lab Results Component Value Date NA 130 05/12/2020 K 4.2 05/12/2020 CL 92 05/12/2020 CO2 31 05/12/2020 BUN 19 05/12/2020 CREATININE 0.64 05/12/2020 GLUCOSE 203 05/12/2020 CALCIUM 8.8 05/12/2020 Lab Results Component Value Date LABA1C 6.7 (H) 05/12/2020 Additional results of the last 24 hours have been reviewed. Assessment and Plan: Principal Problem: Compartment syndrome of right hand (HCC) Active Problems: Type 2 diabetes mellitus with hyperglycemia, without long-term current use of insulin (HCC) Elevated CK Hyponatremia Pyuria- asymptomatic Necrotizing fasciitis (HCC) Abscess of right hand Septic arthritis of right wrist (HCC) Right hand pain MSSA (methicillin susceptible Staphylococcus aureus) Resolved Problems: * No resolved hospital problems. * #Compartment syndrome/?nec fas/hand pain - due to pathology less likely necrotizing fasciitis; s/p I and D x 2 with wound vac placement; ID following for IV antibiotic (MSSA susceptible to nafcillin); pain control per ortho #DM II - new diagnosis; recommend metformin upon discharge #Hyponatremia - improving, mild; suspect SIADH due to pain/surgery; recommend stopping LR when able #?UTI - doubt; patient denies urinary complaints Disposition:await test results and await clinical improvement I spent over 51% of total time providing counseling or incoordination of care: > 35 minutes I personally examined the patient and I personally reviewed chart, data, labs radiology reports 6AM-6PM please page: 6PM-6AM please page: [facility] Internal Medicine * Butch Harris MD - 05/12/2020 9:49 AM EDT [facility] - Infectious Diseases Attending Progress Note Reason for follow up: R septic wrist and deep hand abscess, concern for necrotizing fasciitis Subjective: Had some RUE pain postop repeat I&D, partial closure + wound vac placement last night. Pain is now improved and 6/10 currently. Patient has not yet had a BM but denies fevers, SOB, urinary issues, CP, skin changes. Antimicrobials: Clindamycin, vancomycin, zosyn Prior: none Objective: Vitals: Patient Vitals for the past 24 hrs: BP Temp Temp src Pulse Resp SpO2 05/12/20 0836 104/72 96.9 F (36.1 C) Temporal 66 15 94 % 05/12/20 0433 128/69 98 F (36.7 C) Temporal 52 18 97 % 05/11/20 2040 112/73 95.5 F (35.3 C) Temporal 76 18 94 % 05/11/20 1900 (!) 140/85 81 16 94 % 05/11/20 1845 138/82 98.8 F (37.1 C) 89 17 97 % 05/11/20 1830 (!) 142/92 99 18 96 % 05/11/20 1825 (!) 140/86 99 F (37.2 C) Temporal 100 19 97 % Physical Exam Constitutional: Appearance: Normal appearance. HENT: Head: Normocephalic and atraumatic. Right Ear: External ear normal. Left Ear: External ear normal. Nose: Nose normal. Mouth/Throat: Mouth: Mucous membranes are moist. Pharynx: Oropharynx is clear. Eyes: Extraocular Movements: Extraocular movements intact. Conjunctiva/sclera: Conjunctivae normal. Pupils: Pupils are equal, round, and reactive to light. Neck: Musculoskeletal: Normal range of motion and neck supple. Cardiovascular: Rate and Rhythm: Normal rate and regular rhythm. Heart sounds: Normal heart sounds. Pulmonary: Effort: Pulmonary effort is normal. Breath sounds: Wheezing present. Comments: Minor wheezing upper lobes Abdominal: General: Abdomen is flat. Bowel sounds are normal. Palpations: Abdomen is soft. Tenderness: There is no abdominal tenderness. Musculoskeletal: Normal range of motion. Right lower leg: No edema. Left lower leg: No edema. Comments: Hand wrapped and elevated, attached to pole Skin: General: Skin is warm and dry. Neurological: General: No focal deficit present. Mental Status: He is alert. Psychiatric: Mood and Affect: Mood normal. Behavior: Behavior normal. Labs: Component Value Date/Time NA 129 (L) 05/12/2020 0416 K 4.4 05/12/2020 0416 CL 92 (L) 05/12/2020 0416 CO2 27 05/12/2020 0416 BUN 20 05/12/2020 0416 CREATININE 0.63 05/12/2020 0416 GLUCOSE 253 (H) 05/12/2020 0416 CALCIUM 8.6 05/12/2020 0416 PROT 6.1 (L) 05/11/2020 0300 LABALBU 3.1 (L) 05/11/2020 0300 BILITOT 0.5 05/11/2020 0300 ALKPHOS 83 05/11/2020 0300 AST 37 05/11/2020 0300 ALT 24 05/11/2020 0300 Component Value Date/Time WBC 14.8 (H) 05/11/2020 0300 HGB 13.6 05/11/2020 0300 HCT 40.0 05/11/2020 0300 PLT 243 05/11/2020 0300 GRANULOCYTES 92.4 (H) 05/11/2020 0300 LYMPHOPCT 2.9 (L) 05/11/2020 0300 MONOPCT 4.4 05/11/2020 0300 LABEOS 0.0 (L) 05/11/2020 0300 BASOPCT 0.3 05/11/2020 0300 NEUTROABS 13.6 (H) 05/11/2020 0300 Micro: 05/10 Wound culture - few gram + cocci 05/11 urine culture - NG Imaging: Lines: PIV Problem List: Wrist abscess / septic arthritis with concern for necrotizing fasciitis -s/p repeat I&D, partial closure + wound vac placement, no further intervention planned -decreased concern for necrotizing fasciitis given minimal necrotic tissue seen on repeat I&D -no gas on XR -wound cx growing staph aureus (nafcillin sensitive) -Will discontinue vancomycin, zosyn, and clindamycin. Will start nafcillin Hyponatremia - IV fluids, CTM T2DM - SSI Asymptomatic bacturia - no need for antibiotics Associated attestation - Geovanny Cai MD - 05/12/2020 5:12 PM EDT I performed a physical exam of the patient and discussed his management with the ID team. I reviewed ID note and agree with [facility]ba intern's documented findings and plan of care. Overall feels better, arm isin a sling, wrapped and elevated. Anticipate patient to go home trent pump for this antibiotic, duration up to 4 weeks planned. VAC dressing per ORS. * Tayler Nguyen DTR - 05/12/2020 9:33 AM EDT Nutrition rescreen completed. Chart reviewed. Patient to be monitored and followed by the diet control valve technician. Dietitian available upon request. * Kasandra Crespo RN - 05/12/2020 9:30 AM EDT Wound Care D/W Dr Alonso (ortho regarding VeraFlo order set needs placed. Also discussed discharge plan currently written for Prevena wound VAC for home. Instructed Dr Alonso if pt has open draining wound the Prevena would not be the recommended VAC to discharge pt home with. Dr Alonso stated to arrange for the appropriate home wound VAC for pt. Notified TCCSamia. Will follow pt and plan for dressing change Wed 05/13. * Jocelyne Alonso MD - 05/12/2020 5:52 AM EDT [facility] [address] [address] [address] [place] [address] Dept: [phone] Loc: [phone] Orthopedic Progress Note Name: Alex Jefferson Date:05/12/2020 Attending:Herrera Ornelas, Subjective Patient resting comfortably. Reports his hand pain is improved. Denies numbness or tingling. Objective Vitals: Vitals: 05/11/20 1845 05/11/20 1900 05/11/20 2040 05/12/20 0433 BP: 138/82 (!) 140/85 112/73 128/69 Pulse: 89 81 76 52 Resp: 17 16 18 18 Temp: 98.8 F (37.1 C) 95.5 F (35.3 C) 98 F (36.7 C) TempSrc: Temporal Temporal SpO2: 97% 94% 94% 97% Weight: Height: Physical Exam: General: NAD RUE Dressing: Clean/Dry/Intact, WV in place with good seal and suction. SILT: Radial/Ulnar/Median distributions Motor: +finger wiggle, Pain with LF passive stretch. No pain with passive stretch of the thumb, IF,RF, SF. Pulses: BCR to all digits <2 secs LABS: Recent Labs 05/10/20 1526 05/11/20 0300 WBC 12.4* 14.8* HGB 15.3 13.6 HCT 43.9 40.0 PLT 268 243 Recent Labs 05/11/20 1552 05/12/20 0143 05/12/20 0416 NA 126* 129* 129* K 5.0 5.1 4.4 CL 93* 92* 92* CO2 26 27 27 BUN 16 18 20 CREATININE 0.52 0.63 0.63 CALCIUM 8.4 8.7 8.6 Recent Labs 05/10/202030 INR 1.1 No results for input(s): SEDRATE, CRP in the last 72 hours. No results for input(s): HCG in the last 72 hours. Assessment Alex is a 54 y.o.male w/ R hand abscess/compartment syndrome s/p I&D/fasciotomies/carpal tunnel release 05/10 and repeat I&D with partial closure and application of wound vac 05/11 Plan NWB RUE Ice Elevate aggressively from IV pole Keep splint C/D/I, ok to remove and reapply for WV changes No plan to return to OR Ok for diet from ortho standpoint Vera flow wound vac applied (Settings: 10cc flush over 1 min every 3.5 hours) Wound care consult for WV changes while in house Switch to Prevena upon discharge, to go home with Prevena in place ID consult Continue antibiotics per ID Skin/NV checks Ortho to follow Jocelyne Alonso MD Orthopaedic Surgery, PGY-2 [phone] * Jocelyne Alonso MD - 05/12/2020 12:26 AM EDT [facility] [address] [address] [address] [place] [address] Dept: [phone] Loc: [phone] Orthopedic Progress Note Name: Alex Jefferson Date:05/12/2020 Attending:Herrera Ornelas DO Subjective Ortho paged to bedside due to obvious patient pain and discomfort. Patient complaining of pain to his RUE. States this has been ongoing since surgery. Has not changed significantly over the past few hours. Denies numbness or tingling. Objective Vitals: Vitals: 05/11/20 1830 05/11/20 1845 05/11/20 1900 05/11/20 2040 BP: (!) 142/92 138/82 (!) 140/85 112/73 Pulse: 99 89 81 76 Resp: 18 17 16 18 Temp: 98.8 F (37.1 C) 95.5 F (35.3 C) TempSrc: Temporal SpO2: 96% 97% 94% 94% Weight: Height: Physical Exam: General: In obvious discomfort RUE Dressing: Clean/Dry/Intact, WV in place with good seal and suction. TTP about dorsal and volar hand. Compartments soft. SILT: Radial/Ulnar/Median distributions Motor: +finger wiggle, Pain with LF passive stretch. No pain with passive stretch of the thumb, IF,RF, SF. Pulses: Palpable Radial, BCR to all digits <2 secs LABS: Recent Labs 05/10/20 1526 05/11/20 0300 WBC 12.4* 14.8* HGB 15.3 13.6 HCT 43.9 40.0 PLT 268 243 Recent Labs 05/11/20 0300 05/11/20 0832 05/11/20 1552 NA 125* 127* 126* K 4.4 4.7 5.0 CL 92* 91* 93* CO2 26 26 26 BUN 17 17 16 CREATININE 0.65 0.61 0.52 CALCIUM 8.2* 8.7 8.4 Recent Labs 05/10/20 2031 INR 1.1 No results for input(s): SEDRATE, CRP in the last 72 hours. No results for input(s): HCG in the last 72 hours. Assessment Alex is a 54 y.o.male w/ R hand abscess/compartment syndrome s/p I&D/fasciotomies/carpal tunnel release 05/10 and repeat I&D with partial closure and application of wound vac 05/11 Plan NWB RUE Ice Elevate aggressively from IV pole Keep splint C/D/I, ok to remove and reapply for WV changes No plan to return to OR Ok for diet from ortho standpoint Vera flow wound vac applied (Settings: 10cc flush over 1 min every 3.5 hours) Wound care consult for WV changes while in house Switch to Prevena upon discharge ID consult Continue antibiotics per ID Skin/NV checks Ortho to follow Jocelyne Alonso MD Orthopaedic Surgery, PGY-2 [phone] * Chloe Mcconnell RN - 05/11/2020 6:25 PM EDT Pt arrived to PACU from OR. Pt ID verified. Monitors applied with alarms on. Vital signs stable. * Brian Galvin MD - 05/11/2020 5:55 AM EDT [facility] [address] [place], [place] [id number] Dept: [phone] Loc: [phone] Orthopedic Progress Note Name: Alex Jefferson Date:05/11/2020 Attending:Herrera Ornelas, Subjective R hand continues to be painful. No fevers. Understands plan for repeat I&D today. Objective Vitals: Vitals: 05/11/20 0114 05/11/20 0130 05/11/20 0346 05/11/20 0503 BP: (!) 95/59 110/70 115/70 Pulse: 69 56 65 Resp: 16 Temp: 97.6 F (36.4 C) TempSrc: Temporal Temporal Oral SpO2: 93% 97% Weight: 251 lb (113.9 kg) Height: 7' (2.134 m) Physical Exam: General: NAD RUE Splint/dressing: Clean/Dry/Intact SILT: +R/U/M Motor: +finger wiggle Pulses: BCR <2seconds to all fingers LABS: Recent Labs 05/10/20 1526 05/11/20 0300 WBC 12.4* 14.8* HGB 15.3 13.6 HCT 43.9 40.0 PLT 268 243 Recent Labs 05/10/20 1526 05/11/20 0300 NA 128* 125* K 3.9 4.4 CL 92* 92* CO2 23 26 BUN 13 17 CREATININE 0.78 0.65 CALCIUM 8.7 8.2* Recent Labs 05/10/20 2031 INR 1.1 No results for input(s): SEDRATE, CRP in the last 72 hours. No results for input(s): HCG in the last 72 hours. Assessment Alex is a 54 y.o.male w/ R hand abscess/compartment syndrome s/p I&D/fasciotomies/carpal tunnel release 05/10/20 Plan -Plan for repeat I&D today at 1600 -Keep NPO -Consented, in chart -Ice & elevate -NWB RUE -Neurochecks -Splint: keep on do not remove, skin checks -Abx: vanc/cefepime -DVT: hold anticoagulation, SCDs -Medical consult/transfer of care for UTI, hyponatremia, and medical management Brian Galvin M.D. Orthopaedic Surgery PGY-2 [phone] * Haleigh Tsai RN - 05/11/2020 12:23 AM EDT Report called to CHIN Mensah documented in this encounter Assessments Diagnosis Right hand pain Pain in limb Compartment syndrome of right hand, initial encounter (HCC) Type 2 diabetes mellitus with hyperglycemia, without long-term current use of insulin (HCC) Elevated CK Other nonspecific abnormal serum enzyme levels Hyponatremia Hyposmolality and/or hyponatremia Pyuria- asymptomatic Other nonspecific finding on examination of urine Necrotizing fasciitis (HCC) Necrotizing fasciitis Abscess of right hand Cellulitis and abscess of hand, except fingers and thumb Septic arthritis of right wrist (HCC) Pyogenic arthritis, forearm MSSA (methicillin susceptible Staphylococcus aureus) Methicillin susceptible Staphylococcus aureus in conditions classified elsewhere and of unspecified site Diagnosis Rash and other nonspecific skin eruption- Primary Advance Directives No Advanced Directives Records FoundDocuments on File Type Date Recorded Patient Accountant Controller Expl anation Advance Directives and Living Will Power of [employer]anner Latest Code Status on File Code Status Date Activated Date Inactivated Comments Full Code 05/11/2020 12:52 AM Documents on File Type Date Recorded Patient Accountant Controller Expl anation ACP-Advance Directive ACP-Power of [employer]anner Latest Code Status on File Code Status Date Activated Date Inactivated Comments Full Code 05/11/2020 12:52 AM 05/15/2020 8:40 PM Advance Directive Response Recorded Date/ Time Living Will No December 25, 2023 12:10pm Power of [employer] And [employer] Planner No December 24 12:10pm Advance Directive Response Recorded Date/ Time Living Will No February 06, 2024 10 :12am Power of [employer] And [employer] Planner No February 06, 2024 10:12am Summary Purpose Family History No Family History Records FoundNo Family History Records FoundNo Family History Records FoundNo Family History Records Found Hospital Course Note Orthopedic Discharge Summary Name: Alex Jefferson ; 1965 Age: 54 y.o. Gender: male Weight: Weight: 251 lb (113.9 kg) Attending Physician: Herrera Ornelas DO Admit Date:05/10/2020 Discharge Diagnosis: Right Hand Compartment Syndrome, Deep space infection of Hand, and Septic Wrist Discharge Date: 05/15/2020 Brief history of injury/present illness: Alex is a 54 y.o. male with right hand compartment syndrome, deep space infection of hand, and septic wrist who presented for operative treatment. Risks, benefits, alternatives to surgery were discussed with the family who elected to proceed. Pertinent physical findings: 1) Significant swelling dorsally and volarly 2) Blistering on dorsum of the hand 3) Tenderness to palpation through the index finger, palm and dorsum of the hand 4) Pain with passive stretch of the fingers Surgeries/Procedures: 05/10/2020: Fasciotomy of the right hand including CTR, wrist arthrotomy, drainage of deep space hand abscess and extensor synovecto (more content not included)... Reason for Referral Status Reason Specialty Diagnoses / Procedures Referred By Contact Referred To Contact [facility] Required Dermatology Diagnoses Rash and other nonspecific skin eruption Og Youssef, PA-C [address] [place] [address] A[address] Spi Derm [address] [facility] [address] [place] [address] Scheduling Instructions [facility] D[facility] - [facility] [place] [address] [facility] [address] [place] [address] Chief Complaint and Reason for Visit Chief Complaint ABD Chief Complaint ABD EYE Additional Source Comments Reason for Visit (unrecogniz ed section and content) Reason Comments Hand Pain attn right Reason Comments Rash (unrecognized sect ion and content) No Status Records FoundNo Status Records FoundNo Status Records FoundNo Status Records Found INFORMATION SOURCE (unrecogn ized section and content) DATE CREATED AUTHOR 06/17/2020 [facility] DATE CREATED AUTHOR AUTHOR'S ORGANIZ ATION 07/23/2022 [facility] DATE CREATED AUTHOR AUTHOR'S ORGANIZ ATION 04/06/2023 [facility] DATE CREATED AUTHOR AUTHOR'S ORGANIZ ATION 06/24/2024 [facility] Source Comments (unrecognize d section and content) In the event this informatio n is protected by the Federal Confidentiality of Alcohol and Drug Abuse Patient Records regulations: The Federal rules restrict any use of the information to criminally investigate or prosecute any alcohol or drug abuse patient.[facility] Ordered Prescriptions (unrec ognized section and content) Prescription Sig Dispensed Refills Start Date End Da te predniSONE (DELTASONE) 20 MG tablet Take 2 tablets by mouth daily for 4 days 8 tablet 0 12/08/2020 12/12/2020 clotrimazole (LOTRIMIN AF) 1 % cream Apply topically 2 times daily. 1 Tube 1 12/08/2020 12/15/2020 Care Teams (unrecognized sec tion and content) Assistant Portfolio Manager Relationship Specialty Start Date End Date [facility] [address] [place] [address] PCP - General 04/05/23 Assistant Portfolio Manager Relationship Specialty Start Date End Date [facility] [address] [place] [address] PCP - General 04/05/23 Team Status: Active Member Role Status Dates Dr. Sesar Medrano MD Family Provider Active No Primary Care Physician Primary Care Provider Active Team Status: Inactive Member Role Status Dates No Primary Care Physician Primary Care Provider Active Myles Rivera MD Emergency Provider Active Team Status: Inactive Member Role Status Dates No Primary Care Physician Primary Care Provider Active Dr. Christopher Conti MD Emergency Provider Active Team Status: Inactive Member Role Status Dates No Primary Care Physician Primary Care Provider Active Myles Rivera MD Attending Provider, Emergency Provid er Active Goals (unrecognized section and content) Goals may be documented in a n alternate sectionGoals may be documented in an alternate section FOR RECORDS PERTAINING TO PATIENTS WHO ARE OR HAVE BEEN ENROLLED IN A CHEMICAL DEPENDENCY/SUBSTANCEABUSE PROGRAM, SOME INFORMATION MAY BE OMITTED. This clinical summary was aggregated from multiple sources. Caution should be exercised in using it in the provision of clinical care. This summary normalizes information from multiple sources, and as a consequence, information in this document may materially change the coding, format and clinical context of patient data. In addition, data may be omitted in some cases. CLINICAL DECISIONS SHOULD BE BASED ON THE PRIMARY CLINICAL RECORDS. [facility] [employer] [facility]. provides no warranty or guarantee of the accuracy or completeness of information in this document.
--- NOTE | 2025-09-18 22:15 | EX.ED.VIS.EY ---
HPI History of Present Illness Chief Complaint: Eye Problem Informant: patient Narrative Narrative: 59-year-old male presenting to the emergency room with foreign body in the right eye. Patient states that he was doing some grinding in his shop about 2-1/2 hours ago when he felt something go into his right eye. He notes that he was wearing safety goggles. He has had this before. He does not wear contacts. PFSH PFSH Home Medications ?Medication ?Instructions ?Recorded ?Last Taken ?Type cephalexin 500 mg capsule 500 mg PO Q6 #40 CAPSULES 02/06/24 Unknown Rx cephalexin 500 mg capsule 500 mg PO Q6H 10 days #40 caps 02/06/24 Unknown Rx Allergy/AdvReac Type Severity Reaction Status Date / Time No Known Allergies Allergy Verified 09/18/25 20:14 Surgical History Hx of hand surgery Social History Smoking Status: Current every day smoker tobacco type: cigarettes ROS ROS ED Constitutional Constitutional ED: Denies chills, fever(s) or weight loss Eyes Eyes: Reports blurry vision and other Details: Foreign body right eye ; Denies change in vision or diplopia ENT ENT ED: Denies ear pain, rhinorrhea or sore throat Cardiovascular Cardiovascular: Denies chest pain, orthopnea, palpitations or racing heartbeat Respiratory/Chest Respiratory/Chest: Denies cough, dyspnea or orthopnea Gastrointestinal Gastrointestinal: Denies abdominal pain, diarrhea, nausea or vomiting Genitourinary Genitourinary ED: Denies dysuria, hematuria or urinary frequency Musculoskeletal Musculoskeletal: Denies arthralgias or myalgias Integumentary Denies abscess or rash Neurologic Neurologic: Denies headache(s) or weakness Psychiatric Psychiatric: Denies anxiety, depression, suicidal ideation or suicidal thoughts Endocrine Endocrinology: Denies polydipsia, polyphagia or polyuria Allergic/Immunologic Allergic/Immunologic ED: Denies mouth swelling, tongue swelling or urticaria EXAM Physical Exam Const Vital Signs: 09/18/25 20:13 Temperature 98 F Temperature Source Oral Pulse Rate 100 Respiratory Rate 16 Blood Pressure 155/88 H Blood Pressure Mean 110 Pulse Ox 99 Oxygen Delivery Method Room Air Positive well nourished and well developed General Appearance ED: well developed and NAD HEENT Reports normocephalic, head/scalp atraumatic and moist mucous membranes Eyes PERRL and EOMs intact bilaterally Eyes Narrative: Right eye shows some mild injection. Tearing bilaterally. Located in the cornea at about the 6 o'clock position is a #7 shaped corneal abrasion with a small metallic foreign body. Neck no lymphadenopathy, supple and no JVD Resp normal respiratory effort and clear to auscultation bilaterally Cardio regular rate, regular rhythm and no murmurs GI normal to inspection, nondistended, normoactive bowel sounds and non-tender Palpation: soft Back/Spine no CVA tenderness and normal ROM Extremity normal to inspection General Extremety ED: Negative for edema General Extremity: Negative for edema Neuro oriented x3 and CN's II-XII intact bilaterally Sensorium / Orientation: alert Motor Exam: strength 5/5 throughout Psych mental status grossly normal Mood & Affect: Negative for depressed or tearful Skin no rashes or lesions noted and no wounds MDM MDM MDM Narrative Medical decision making narrative: Differential diagnosis includes corneal abrasion ruptured globe rust ring metallic foreign body conjunctival foreign body Eyelids were everted no other foreign bodies were noted. The foreign body of the cornea was removed using a simple Q-tip after anesthetizing using tetracaine. I do not see any other foreign bodies under the microscope. Negative Sidel sign. Patient will use erythromycin ophthalmic ointment. Follow-up with ophthalmology to ensure resolution return if worsening or concerns History & Record Review Discussion w/independent historian: Patient Discharge Plan Triage Chief Complaint: Eye Problem ED Provider: Alex Voss Dx/Rx/DC Orders Clinical Impression: Abrasion, corneal, Corneal foreign body Instructions: ED Corneal Abrasion, ED Corneal Foreign Body, Removed Prescriptions: No Action cephalexin 500 mg capsule 500 mg PO Q6H 10 Days Qty: 40 0RF cephalexin 500 mg capsule 500 mg PO Q6 Qty: 40 0RF Primary Care Provider: Tommie Burr Referrals: Tommie Burr MD [Primary Care Provider, Family Practice] Danny Hawkins MD [Med Staff - Active Staff, Opthamology] - 3-5 Days Referral Note: in 3 days for recheck to ensure resolution of abrasion Activity Restrictions/Additional Instructions: Apply a thin ribbon to the right lower eyelid 5 times a day for the next 5 days If persistent symptoms return or follow-up with ophthalmology early. There is a scratch on your cornea which I would recommend ensuring it fully resolves by following up with ophthalmology next week. Print Language: Guatemalan Disposition Disposition: Home, Self Care
[2025-09-18] MEDS: Erythromycin Base 1 OPTH.TUBE 1 APPLIC RIGHT EYE (22:23)
[2025-09-18] MEDS: Tetracaine 0.5% Ophthalmic Bottle 1 DRP EACH EYE (22:25)
[2025-09-18 22:26] VITALS: BP 148/60; PULSE 90; RESP 18; TEMP 36.3; O2SAT 96
== END 2025-09-18 22:26 | disposition home or self-care (01) ==
PROVIDERS: Emergency Provider Emergency Medicine; PCP Family Medicine; Visit Provider Emergency Medicine
DX: T15.01XA Foreign body in cornea, right eye, initial encounter (principal); F17.210 Nicotine dependence, cigarettes, uncomplicated; X58.XXXA Exposure to other specified factors, initial encounter
CPT/HCPCS: 99282